=== PATIENT | female | born 1970 | race Caucasian/White ===

== ENCOUNTER → 2018-07-06 10:18 | Outpatient (CLI) | payer BC, SELFPAY ==
[2018-07-06 11:53] LABS: Add Manual Diff / Slide Review NO; Basophils Percent Auto 0.6 % (0-2); Eosinophils Percent Auto 1.7 % (2-4); Hematocrit 39.4 % (36-46); Hemoglobin 14.1 g/dL (12.0-16.0); Lymphocytes Percent Auto 27.2 % (25-40); Mean Corpuscular HGB Conc 35.8 % (30-36); Mean Corpuscular Hemoglobin 32.6 PG (26-34); Neutrophils Absolute Auto 4300 /uL (3000-5900); Neutrophils Percent Auto 63.5 % (50-75); Platelet Count 274 X10^3/uL (150-400); Red Blood Cell Count 4.33 X10^6/uL (4.0-5.2); Red Cell Distribution Width 13.2 % (11.6-14.8); White Blood Cell Count 6.7 X10^3/uL (4.5-11.0)
[2018-07-06 12:13] LABS: Alanine Aminotransferase 35 IU/L (9-52); Albumin 4.8 g/dL (3.5-5.0); Albumin Globulin Ratio 1.4 (1.0-2.8); Alkaline Phosphatase 45 U/L (38-126); Aspartate Aminotransferase 28 IU/L (14-36); BUN Creatinine Ratio 17.1 (6-22); Bilirubin Total 0.9 mg/dL (0.2-1.3); Blood Urea Nitrogen 12 mg/dL (7-17); Calcium 9.6 mg/dL (8.4-10.2); Carbon Dioxide 28 mmol/L (22-32); Chloride 101 mmol/L (98-107); Estimated Glomerular Filt Rate > 60.0 mL/min (>60); Globulin 3.4 g/dL (1.7-4.1); Glucose 107 mg/dL (70-100); HEMOLYSIS 16 (0-50); Potassium 3.9 mmol/L (3.4-5.1); Sodium 141 mmol/L (137-145); Total Protein 8.2 g/dL (6.3-8.2)
[2018-07-06 12:41] LABS: TSH w/ Reflex to FT4 2.07 uIU/mL (0.47-4.68)
== END ==
PROVIDERS: PCP Family Medicine; Visit Provider Registered Nurse
DX: R06.02 Shortness of breath (principal)
CPT/HCPCS: 36415; 80053; 84443; 85025

== ENCOUNTER → 2018-09-21 11:50 | Outpatient (CLI) | payer BC, SELFPAY ==
[2018-09-21 12:03] LABS: Add Manual Diff / Slide Review NO; Basophils Absolute Auto 100 /uL (0-100); Basophils Percent Auto 1.1 % (0-2); Eosinophils Absolute Auto 200 /uL (0-450); Eosinophils Percent Auto 3.5 % (2-4); Hematocrit 37.4 % (36-46); Hemoglobin 13.5 g/dL (12.0-16.0); Lymphocytes Absolute Auto 1600 /uL (1100-4500); Mean Corpuscular Hemoglobin 32.8 PG (26-34); Mean Corpuscular Volume 91.1 fL (80-100); Monocytes Absolute Auto 400 /uL (0-900); Monocytes Percent Auto 5.7 % (3-14); Neutrophils Absolute Auto 4500 /uL (1500-7000); Neutrophils Percent Auto 66.7 % (50-75); Platelet Count 246 X10^3/uL (150-400); Red Blood Cell Count 4.11 X10^6/uL (4.0-5.2); Red Cell Distribution Width 13.6 % (11.6-14.8); White Blood Cell Count 6.8 X10^3/uL (4.5-11.0)
[2018-09-21 12:24] LABS: Cholesterol 156 mg/dL (140-199); HDL Cholesterol 53 mg/dL (40-60); LDL Cholesterol Calculated 85 mg/dL (<100); Triglycerides 89 mg/dL (35-150)
== END ==
PROVIDERS: PCP Family Medicine; Visit Provider Family Medicine
DX: Z13.220 Encounter for screening for lipoid disorders (principal); N92.0 Excessive and frequent menstruation with regular cycle
CPT/HCPCS: 36415; 80061; 85025

== ENCOUNTER 2018-12-23 06:37 | Day surgery (SDC) | payer BC, SELFPAY ==
[2018-11-03 07:45] VITALS: BMI 35.6
[2018-12-12 15:18] VITALS: BMI 35.6
[2018-12-23] VITALS (8 sets, daily range): BP systolic 102–132; BP diastolic 71–93; PULSE 66–92; RESP 13–22; TEMP 36.3–36.8; O2SAT 92–97; BMI 35.6
--- NOTE | 2018-12-23 | PATH_ITS ---
[facility] Accession Number: [id number] . 01 Material submitted: . endometrium - ENDOMETRIAL CURRETINGS . 02 Diagnosis: Endometrial Curettings: Focal benign / non-atypical glandular hyperplasia in a background of disordered proliferative endometrium with regions of breakdown; negative for cytologic atypia and malignancy. V/12/26/2018 . 02 Electronically signed: . Haleigh Marshall MD, Pathologist NPI- [id number] . 01 Gross description: . ENDOMETRIAL CURRETINGS: Received in formalin are minute fragments of mucoid and hemorrhagic material measuring 0.6 x 0.6 x 0.3 cm in aggregate. Submitted in toto in 1 cassette. /DMC /DMC . 02 Pathologist provided ICD-10: N85.00 . 02 CPT . 226503 Performed at: 01 [facility] [address] [id number] MD Jeffy Noyola MD Phone: [phone] Performed at: 02 [facility] [address] [place], [place] [id number] MD Kya Guzmán MD Phone: [phone]
--- NOTE | 2018-12-23 07:26 | SUR.OPER ---
Lithotomy on padded OR bed, head on pillow, arms secured on padded arm boards at <90 degrees abduction. Legs secured in padded yellow fins stirrups.
[2018-12-23] MEDS: LACTATED RINGERS 1,000 ML 42 ML IV (07:46)
--- NOTE | 2018-12-23 07:56 | PM.PREOP ---
Pre-operative Note Interval Note History & Physical reviewed/Exam performed by Physician: Yes Changes to H&P: No
--- NOTE | 2018-12-23 07:57 | PM.HP.1 ---
History of Present Illness Date Patient Seen: 12/23/18 Time Patient Seen: 07:57 Chief complaint: [address] D&C HYSTERECTOMY; NOVASURE ABLATION Narrative: Patient is a 47-year-old 4 para 4 with menorrhagia and severe dysmenorrhea who presents for a D&C hysteroscopy and NovaSure endometrial ablation Patient History Medical History (Updated 11/03/18 @ 07:54 by Kalyn Mathur RN) Dysmenorrhea (Acute) Gestational diabetes (Acute) Hx of migraines (Acute) Hyperglycemia (Acute) Menorrhagia (Acute) Neck pain (Chronic ~2013) Surgical History (Updated 11/03/18 @ 07:54 by Kalyn Mathur RN) History of (Acute) Family History (Updated 07/05/18 @ 23:02 by Beulah Benson) Sister Diabetes mellitus Brother Diabetes mellitus Father Diabetes mellitus Diabetic neuropathy Sister Thyroid disease Social History household members: spouse and children Smoking Status: Never smoker Family & Social History Family History (Updated 07/05/18 @ 23:02 by Beulah Benson) Sister Diabetes mellitus Brother Diabetes mellitus Father Diabetes mellitus Diabetic neuropathy Sister Thyroid disease Social History: household members spouse,children Tobacco & Substance use: Smoking Status Never smoker Substance Use Type does not use Meds Home Medications Medication Instructions Recorded Confirmed Type Vitamin D3 Complete 800 unit PO DAILY #0 04/01/17 12/23/18 History acyclovir 400 mg PO TID PRN 12/23/18 11/03/18 History Allergies Allergy/AdvReac Type Severity Reaction Status Date / Time venom-honey bee Allergy Severe Anaphylaxis Verified 12/23/18 07:48 [BEE VENOM (HONEY BEE)] morphine [MORPHINE] Allergy Intermediate SWELLING, Verified 12/23/18 07:48 ITCHING, HIVES hydrocodone [HYDROCODONE] Allergy Mild ITCH Verified 12/23/18 07:48 codeine [CODEINE] AdvReac Mild NAUSEA Verified 12/23/18 07:48 Exam Vital Signs (past 8 hours): - 12/23/18 07:12 Temperature 98.3 F Pulse Rate 73 Respiratory Rate 16 Blood Pressure 132/93 H Pulse Oximetry 97 Oxygen Delivery Method Room Air Narrative Exam Narrative: HEENT: No thyromegaly, no anterior cervical or supraclavicular lymphadenopathy. Lungs:Clear to auscultation bilaterally, no wheezes. Cardiovascular: Regular rate and rhythm, no murmurs, rubs, or gallops. Abdomen: Well-healed Pfannenstiel scars. No hepatosplenomegaly. No masses palpable. External genitalia: Normal Vagina: Normal Cervix: Normal Bimanual exam: 8 Week size uterus. Mobile. Rectal: No masses. Assessment & Plan Assessment & Plan narrative: Assessment: 47-year-old 4 para 4 with menorrhagia and severe dysmenorrhea Plan: D&C hysteroscopy with NovaSure endometrial ablation The risks, benefits, and alternatives to the procedure were explained to the patient. The risks including bleeding, infection, and uterine perforation. She understands these risks and agrees to proceed. A full PAR-Q was held and consent form was signed. Time Spent With Patient Time with patient: 15-24 minutes
[2018-12-23] MEDS: APREPITANT 40 MG CAPSULE PO (08:07)
[2018-12-23] MEDS: ONDANSETRON 4 MG/2 ML INJ IV (08:59)
--- NOTE | 2018-12-23 09:08 | PM.GYNOP.1 ---
Operative Date/Time/Diagnoses Date of procedure: 12/23/18 Time of procedure: 09:08 Pre-op diagnosis: Menorrhagia Severe dysmenorrhea Post-op diagnosis: same Procedure: Procedures Operation Date: 11/04/18 10:15 <No data on this case meets the specified criteria> Operation Date: 12/23/18 07:45 Actual Procedures Side Surgeon p Hysteroscopy D&C w/Novasure Ablation Gracie Mayers MD Indications: Menorrhagia Severe dysmenorrhea Surgeon: Gracie Mayers Anesthesia Type: General (LMA) Operative Notes Findings: 8 week size anteverted uterus Thickened endometrial lining Both fallopian tube ostia observed No fibroids or polyps Specimen(s): endometrial curettings Estimated blood loss (mL): 10 Blood products transfused: none Procedure in detail: After informed consent was obtained, the patient was taken to the operating room where she was placed in the dorsal supine position. After adequate LMA general anesthesia was achieved, she was placed in the dorsal lithotomy position, and prepped and draped in the usual sterile fashion. A time-out was performed. A bivalve speculum was placed into the vagina and the anterior lip of the cervix grasped with a single-tooth tenaculum. The cervical os was sequentially dilated to the # 8 Hegar dilator. The hysteroscope passed easily into the endometrial cavity. There was a thickened endometrial lining throughout. Both fallopian tube ostia were observed. There were no fibroids or polyps observed. The hysteroscope was removed. sharp curettage was performed yielding a large amount of endometrial curettings. The uterus was measured from the internal os to the fundus and was at 4.5 cm. This was set on the NovaSure catheter and the generator. The NovaSure catheter passed easily into the endometrial cavity and was opened. The width was 3.5 cm. This indicated a power of 87 w. The cervix was capped. The cavity assessment was performed and passed. The cycle was initiated and lasted 120 seconds. The cervix was then capped. The NovaSure catheter was closed in was removed from the uterus. The single-tooth tenaculum was removed from the anterior lip of the cervix. The bivalve speculum was removed from the vagina. Sponge, lap, and instrument counts were correct x2. The patient tolerated the procedure well, and was taken to PACU in stable condition. Complications: none Post-operative Condition: stable Disposition: PACU Plan for aftercare: Home after recovery
== END 2018-12-23 09:45 | disposition home or self-care (01) ==
PROVIDERS: PCP Family Medicine; Visit Provider Obstetrics & Gynecology
PROC: 0U5B8ZZ Destruction of Endometrium, Via Natural or Artificial Opening Endoscopic (ICD-10-PCS; CPT 58563; principal; 2018-12-23 07:45)
DX: N85.00 Endometrial hyperplasia, unspecified (principal); N94.6 Dysmenorrhea, unspecified; N92.0 Excessive and frequent menstruation with regular cycle
CPT/HCPCS: 58563; J1100; J2250; J2405; J2704; J2765; J3010; J8501

== ENCOUNTER 2020-06-10 17:48 | Inpatient (IN) | payer BC, SELFPAY ==
[2020-06-10] VITALS (8 sets, daily range): BP systolic 127–176; BP diastolic 79–91; PULSE 77–103; RESP 15–24; TEMP 36.6–37.1; O2SAT 92–98; BMI 34.3
--- NOTE | 2020-06-10 18:21 | ED.GENADULT ---
HPI - General Adult General Chief complaint: Abdominal Pain Stated complaint: SEVERE ABD CRAMPING FEVER Time Seen by Provider: 06/10/20 18:08 Source: patient Mode of arrival: Ambulatory Limitations: no limitations History of Present Illness HPI narrative: Patient is a 49-year-old female here for evaluation approximately 24 hours of generalized abdominal pain. She initially stated that it was in her upper abdomen but then later on stated that the majority of her symptoms are located on her lower abdomen with left being greater than right. Symptoms were not a sudden-onset did reach their maximum intensity within 30-60 minutes last evening. She stated that she has had some dysuria with the symptoms. Also stated that she felt like she was fairly constipated although she did have 3 bowel movements today although she did not get much relief from the pressure in her lower abdomen. Has had some nausea but no vomiting. No fevers. No prior abdominal surgeries. Has not tried anything for symptoms prior to arrival. She states that she is going through menopause. States that she does have a fairly uncomfortable menses for the last 1 being 1 week ago. Related Data Home Medications Medication Instructions Recorded Confirmed Vitamin D3 Complete 800 unit PO DAILY #0 04/01/17 06/10/20 acyclovir 400 mg PO TID PRN 12/23/18 06/10/20 Allergies Allergy/AdvReac Type Severity Reaction Status Date / Time venom-honey bee Allergy Severe Anaphylaxis Verified 06/10/20 18:02 [BEE VENOM (HONEY BEE)] morphine [MORPHINE] Allergy Intermediate SWELLING, Verified 06/10/20 18:02 ITCHING, HIVES hydrocodone [HYDROCODONE] Allergy Mild ITCH Verified 06/10/20 18:02 codeine [CODEINE] AdvReac Mild NAUSEA Verified 06/10/20 18:02 Review of Systems Constitutional Constitutional: Denies fatigue, Denies fever(s) and Denies headache(s) ENT Ears, Nose, Mouth, and Throat: Denies headache(s) Cardiovascular Cardiovascular: Denies chest pain and Denies dyspnea Respiratory Respiratory: Denies dyspnea Gastrointestinal Gastrointestinal: Reports abdominal pain, Denies melena, Reports bloating, Denies hematochezia, Denies change in bowel habits, Reports tenesmus, Reports cramping, Reports nausea and Denies vomiting Genitourinary Genitourinary: Reports dysuria Genitourinary: Reports dysuria Musculoskeletal Musculoskeletal: Denies arthralgias and Denies myalgias Integumentary/Breasts Skin/Breast: Denies lesions and Denies rash Neurologic Neurologic: Denies behavioral changes and Denies headache(s) Psychiatric Psychiatric: Denies behavioral changes Endocrine Endocrine: Denies fatigue Hematologic/Lymphatic Hematologic/Lymphatic: Denies easy bleeding and Denies easy bruising Allergic/Immunologic Allergic/Immunologic: Denies urticaria Patient History Medical History Dysmenorrhea (Acute) Gestational diabetes (Acute) Hx of migraines (Acute) Hyperglycemia (Acute) Menorrhagia (Acute) Neck pain (Chronic ~2012) Surgical History (Updated 01/24/19 @ 09:30 by Hayley Nunez LPN) History of (Acute) Status post endometrial ablation (Resolved 12/23/18) Family History (Updated 07/05/18 @ 23:02 by Beulah Benson) Sister Diabetes mellitus Brother Diabetes mellitus Father Diabetes mellitus Diabetic neuropathy Sister Thyroid disease Social History household members: spouse Smoking Status: Never smoker alcohol intake: current Smoking Status: Never smoker Substance Use Type: does not use Exam Initial Vital Signs Initial Vital Signs: Vital Signs Temperature 98.8 F 06/10/20 17:54 Pulse Rate 103 H 06/10/20 17:54 Respiratory Rate 18 06/10/20 17:54 Blood Pressure 176/91 H 06/10/20 17:54 Pulse Oximetry 98 06/10/20 17:54 Const General: cooperative, comfortable, well developed and well groomed Limitations: mental status not altered [facility] Head: normal to inspection and normocephalic Resp Effort & Inspection: normal respiratory effort Auscultation: clear to auscultation bilaterally Cardio Rate: tachycardic Rhythm: regular rhythm Pulses: radial pulses present GI Inspection: non-distended Palpation: soft, No firm and tender (Lower abdomen that rebound or guarding) Back/Spine/Pelvis Back: No CVA tenderness Skin Lesions: no lesions Rashes: no rashes Neuro General: patient alert, patient awake and patient oriented x3 Cognition: normal cognition Speech: speech normal Extrem General: normal to inspection and capillary refill normal Psych Appearance: grossly normal and well kempt Scores GCS Richards coma scale eye opening: Spontaneous Maureen coma scale verbal response: Orientated Maureen coma scale motor response: Obey commands Richards coma scale total score: 15 Course Orders Ordered: ED Orders 06/10/20 18:04 EKG-12 Lead Stat 06/10/20 18:10 Chlamydia Gonorrhea PCR -URINE Stat 06/10/20 18:19 Complete Blood Count AUTO DIFF Stat Comprehensive Metabolic Panel Stat Lipase Stat Partial Thromboplastin Time Stat Prothrombin Time INR Stat 06/10/20 18:23 CT abdomen pelvis w con Stat 06/10/20 19:34 US pelvic complete Stat 06/10/20 21:54 Consult to General Surgery Stat Consult to Physician Stat 06/10/20 22:02 Consult to Physician Stat 06/10/20 22:04 Consult to Physician Stat 06/10/20 22:17 COVID19 -ED/INPAT/OR/L&D Stat Sodium Chloride (Normal Saline 0.9%) 1,000 mls @ 125 mls/hr IV CONT [facility] Last Infusion: 06/10/20 22:30 Dose: 125 mls/hr Documented by: Admin: 06/10/20 22:02 Dose: 125 mls/hr Documented by: RALPH Ciprofloxacin (Cipro) 400 mg in 200 mls @ 200 mls/hr IV NOW [facility] Last Admin: 06/10/20 23:40 Dose: 200 mls/hr Documented by: MONICO Ondansetron HCl (Zofran) 4 mg IV Q4HR PRN PRN Reason: Nausea And Vomiting Oxycodone HCl (Percolone) 5 mg PO Q4HR PRN PRN Reason: Pain, Moderate (4-6) Discontinued Medications Sodium Chloride (Normal Saline 0.9%) 1,000 mls @ 1,000 mls/hr IV BOLUS ONE Stop: 06/10/20 19:21 Last Infusion: 06/10/20 20:25 Dose: 0 mls/hr Documented by: Admin: 06/10/20 18:30 Dose: 1,000 mls/hr Documented by: SHAKIR Metronidazole (Flagyl) 500 mg in 100 mls @ 100 mls/hr IV NOW ONE Stop: 06/10/20 23:00 Last Infusion: 06/10/20 22:51 Dose: 100 mls/hr Documented by: Admin: 06/10/20 22:06 Dose: 100 mls/hr Documented by: RALPH Vital Signs Vital signs: Vital Signs - 8 hr 06/10/20 17:54 06/10/20 18:44 06/10/20 19:31 Temperature 98.8 F Pulse Rate 103 H 82 81 Respiratory Rate 18 16 24 Blood Pressure 176/91 H 152/87 H Pulse Oximetry 98 96 98 06/10/20 20:00 06/10/20 21:10 06/10/20 21:12 Temperature Pulse Rate 77 85 84 Respiratory Rate 24 16 Blood Pressure 157/83 H Pulse Oximetry 92 97 97 06/10/20 21:30 Temperature Pulse Rate 83 Respiratory Rate 15 Blood Pressure 127/79 Pulse Oximetry 97 Medical Decision Making Medical Records Medical records reviewed: Yes I reviewed the patient's medical records. Lab Data Lab results reviewed: Yes I reviewed the patient's lab results. Result diagrams: 06/10/20 18:19 06/10/20 18:19 Labs: Lab Results 06/10/20 06/10/20 06/10/20 Range/Units 18:10 18:19 18:19 WBC 11.9 H (4.5-11.0) X10^3/uL RBC 4.35 (4.0-5.2) X10^6/uL Hgb 14.2 (12.0-16.0) g/dL Hct 40.1 (36-46) % MCV 92.1 (80-100) fL MCH 32.5 (26-34) PG MCHC 35.3 (30-36) % RDW 12.8 (11.6-14.8) % Plt Count 260 (150-400) X10^3/uL Neut % (Auto) 77.3 H (50-75) % Lymph % (Auto) 16.4 L (25-40) % Blount % (Auto) 5.1 (3-14) % Eos % (Auto) 0.8 L (2-4) % Baso % (Auto) 0.4 (0-2) % Neut # (Auto) 9200 H (9672-9636) /uL Lymph # (Auto) 2000 (9330-8586) /uL Blount # (Auto) 600 (0-900) /uL Eos # (Auto) 100 (0-450) /uL Baso # (Auto) 0 (0-100) /uL PT 12.0 (10.1-12.7) SECONDS INR 1.0 (0.9-1.3) APTT 31 (26.4-36.2) SECONDS Sodium (137-145) mmol/L Potassium (3.4-5.1) mmol/L Chloride (98-107) mmol/L Carbon Dioxide (22-32) mmol/L BUN (7-17) mg/dL Creatinine (0.52-1.04) mg/dL Estimated GFR (>60) mL/min BUN/Creatinine Ratio (6-22) Glucose (70-100) mg/dL Calcium (8.4-10.2) mg/dL Total Bilirubin (0.2-1.3) mg/dL AST (14-36) IU/L ALT (<35) IU/L Alkaline Phosphatase (38-126) U/L Total Protein (6.3-8.2) g/dL Albumin (3.5-5.0) g/dL Globulin (1.7-4.1) g/dL Albumin/Globulin Ratio (1.0-2.8) Lipase (23-300) U/L Ur Chlamydia DNA (PCR) Not detected N gonorrhoeae DNA (PCR) Not detected 06/10/20 Range/Units 18:19 WBC (4.5-11.0) X10^3/uL RBC (4.0-5.2) X10^6/uL Hgb (12.0-16.0) g/dL Hct (36-46) % MCV (80-100) fL MCH (26-34) PG MCHC (30-36) % RDW (11.6-14.8) % Plt Count (150-400) X10^3/uL Neut % (Auto) (50-75) % Lymph % (Auto) (25-40) % Blount % (Auto) (3-14) % Eos % (Auto) (2-4) % Baso % (Auto) (0-2) % Neut # (Auto) (0295-3935) /uL Lymph # (Auto) (5037-5707) /uL Blount # (Auto) (0-900) /uL Eos # (Auto) (0-450) /uL Baso # (Auto) (0-100) /uL PT (10.1-12.7) SECONDS INR (0.9-1.3) APTT (26.4-36.2) SECONDS Sodium 138 (137-145) mmol/L Potassium 3.6 (3.4-5.1) mmol/L Chloride 101 (98-107) mmol/L Carbon Dioxide 27 (22-32) mmol/L BUN 9 (7-17) mg/dL Creatinine 0.65 (0.52-1.04) mg/dL Estimated GFR > 60.0 (>60) mL/min BUN/Creatinine Ratio 13.8 (6-22) Glucose 102 H (70-100) mg/dL Calcium 9.3 (8.4-10.2) mg/dL Total Bilirubin 1.0 (0.2-1.3) mg/dL AST 27 (14-36) IU/L ALT 27 (<35) IU/L Alkaline Phosphatase 58 (38-126) U/L Total Protein 8.1 (6.3-8.2) g/dL Albumin 4.6 (3.5-5.0) g/dL Globulin 3.5 (1.7-4.1) g/dL Albumin/Globulin Ratio 1.3 (1.0-2.8) Lipase 88 (23-300) U/L Ur Chlamydia DNA (PCR) N gonorrhoeae DNA (PCR) Point of Care Testing Test Results Negative Urine Dip Bedside Urine Glucose Negative Bedside Urine Bilirubin - Negative Bedside Urine Ketone - Negative Urine Specific [place] 1.010 Bedside Urine Occult Blood - Negative Bedside Urine pH 7.5 Bedside Urine Protein - Negative Bedside Urine Urobilinogen - Negative Bedside Urine Nitrite - Negative Bedside Urine Leukocytes - Negative Esterase Point of care testing: Point of Care Testing Test Results Negative Urine Dip Bedside Urine Glucose Negative Bedside Urine Bilirubin - Negative Bedside Urine Ketone - Negative Urine Specific [place] 1.010 Bedside Urine Occult Blood - Negative Bedside Urine pH 7.5 Bedside Urine Protein - Negative Bedside Urine Urobilinogen - Negative Bedside Urine Nitrite - Negative Bedside Urine Leukocytes - Negative Esterase Imaging Data CT scan - abdomen/pelvis: Radiologist's Impression: [address] [address] [address] Scan Report Signed Patient: Collette Gutierres [facility]#: [id number] : 1970Acct:[id number] Age/Sex: 49 / FDate of Service: 06/10/20 Loc: ED Accession Number: [id number] Procedure: CT abdomen pelvis w con Ordering Provider: Jonah Malin D.O. PROCEDURE: CT ABDOMEN PELVIS W CON INDICATIONS: Generalized abdominal pain TECHNIQUE: After the administration of intravenous contrast, 5 mm thick sections acquired from the diaphragm to the symphysis. 5 mm coronal and sagittal reformats were acquired. For radiation dose reduction, the following was used: automated exposure control, adjustment of mA and/or kV according to patient size. COMPARISON: None. FINDINGS: Image quality: Excellent. ABDOMEN: Lung bases: Lung bases are clear. Heart size is normal. Solid organs: Liver is normal in size and enhancement. Gallbladder contains an approximately 2 centimeter calcified gallstone near the fundus. No findings of cholecystitis. Biliary system is non dilated. Pancreas enhances normally. Spleen is normal in size and enhancement. No adrenal nodules. Kidneys demonstrate normal size and enhancement, without hydronephrosis. Peritoneum and bowel: There is a focus of fat stranding and fluid adjacent to the sigmoid colon as it traverses adjacent to the left uterus and adnexa. There is mild colonic wall thickening in this region with a few associated diverticula. Areas of central low attenuation with thick irregular shaggy wilson in the left adnexa. These could represent left adnexal Pepper diverticular abscesses although it would be difficult to exclude an irregular enhancing multi-septated left adnexal mass. Remaining bowel is unremarkable Nodes and vessels: No retroperitoneal or mesenteric adenopathy by size criteria. Aorta and inferior vena cava are normal in size. Miscellaneous: No ventral hernias. PELVIS: Genitourinary: Thickened appearance of the left uterus adjacent to the left adnexa. Remainder of the uterus and the right adnexa are within normal limits. The urinary bladder is unremarkable. No threshold enlarged pelvic or inguinal lymph node. Miscellaneous: No inguinal hernias or adenopathy. Bones: No suspicious bony lesions. No vertebral body compression fractures. IMPRESSION: Nonspecific inflammatory changes centered in the left hemipelvis, involving both the sigmoid colon and adjacent left adnexa. Differential considerations include diverticulitis with an associated abscess and phlegmonous change involving the left adnexa, versus a primary left adnexal/ovarian process such as tubo-ovarian abscess or less likely a neoplasm. Pelvic ultrasound could help differentiate these entities, along with physical exam findings and present/absence of leukocytosis and/or fever. Dictated by: Kehinde Farooq M.D. on 06/10/2020 at 19:20 Approved by: Kehinde Farooq M.D. on 06/10/2020 at 19:2 US - RADIOSONDE SPECIALIST: Radiologist's Impression: [address] [address] Ultrasound Report Signed Patient: Collette Gutierres MMR#: [id number] : 1970Acct:[id number] Age/Sex: 49 / FDate of Service: 06/10/20 Loc: ED Accession Number: [id number] Procedure: US pelvic complete Ordering Provider: Jonah Malin D.O. PROCEDURE: US PELVIC COMPLETE INDICATIONS: L adnexa mass on CT further eval by US TECHNIQUE: Real-time scanning was performed of the pelvic organs, with image documentation. Additional endovaginal scanning was necessary due to incomplete visualization of the adnexal and endometrial structures by transabdominal scanning. COMPARISON: [facility], CT, CT ABDOMEN PELVIS W CON, 06/10/2020, 19:07. FINDINGS: The uterus measures approximately 9.4 x 5.4 x 7.7 centimeters . There is a fundal fibroid in the left uterus measuring 3.1 centimeters which is centrally hypoechoic and peripherally hyperechoic, consistent with the CT appearance of being centrally hypodense and peripherally enhancing. Complex fluid in the endometrium. Ovaries are unremarkable. IMPRESSION: Far left fundal fibroid which is centrally necrotic which may reflect treatment changes or central degeneration. Findings would account for the CT appearance in addition to the differential considerations provided on that report. Dictated by: Kehinde Farooq M.D. on 06/10/2020 at 20:54 Approved by: Kehinde Farooq M.D. on 06/10/2020 at 20:59 ECG Data Attestation: I personally reviewed and interpreted this ECG as follows: Prior ECG tracings: not available for review Interpretation: Sinus rhythm Normal axis Normal QRS Normal QTC Nonspecific ST T wave changes MDM Narrative Medical decision making narrative: Patient does have abdominal pain but has not a acute abdomen. Does have a slight leukocytosis with a slight left shift despite her urinary symptoms her urine does not show any signs of infection. Initial CT scan concerning for potential diverticulitis with phlegmon/abscess verses adnexal cause of the symptoms. Ultrasound was recommended and was subsequently performed which showed the uterine fibroid with necrotic center. I did discuss the case with Dr. arriaga with General surgery who recommended antibiotics to cover for diverticulitis and consultation with exhibition designer and admit to primary provider. I then discussed the case with Dr. schneider with exhibition designer who stated that the uterine fibroid did not need surgical intervention and actually recommended Toradol and no antibiotics for treatment of the fibroid. Given this discussion will place on antibiotics secondary to most likely source being GI and diverticulitis. I discussed the case with Dr. Amado who is the patient's primary provider who will admit for further evaluation treatment. Discussed the findings with the patient. Discussed the need for admission and IV antibiotics. Patient expressed understanding and agreement the plan. Discharge Plan Departure Patient Disposition: Admitted As Inpatient Clinical Impression: Diverticulitis Uterine fibroid Qualifiers: Uterine leiomyoma location: unspecified location Qualified Code(s): D25.9 - Leiomyoma of uterus, unspecified Abdominal pain Qualifiers: Abdominal location: generalized Qualified Code(s): R10.84 - Generalized abdominal pain Discharge Date/Time: 06/10/20 22:30 Admit Date/Time: 06/10/20 22:07 Admit Provider: Meera Amado
[2020-06-10 18:25] LABS: Add Manual Diff / Slide Review NO; Basophils Absolute Auto 0 /uL (0-100); Basophils Percent Auto 0.4 % (0-2); Eosinophils Absolute Auto 100 /uL (0-450); Eosinophils Percent Auto 0.8 % (2-4); Hematocrit 40.1 % (36-46); Hemoglobin 14.2 g/dL (12.0-16.0); Lymphocytes Absolute Auto 2000 /uL (1100-4500); Lymphocytes Percent Auto 16.4 % (25-40); Mean Corpuscular HGB Conc 35.3 % (30-36); Mean Corpuscular Hemoglobin 32.5 PG (26-34); Mean Corpuscular Volume 92.1 fL (80-100); Monocytes Absolute Auto 600 /uL (0-900); Monocytes Percent Auto 5.1 % (3-14); Neutrophils Absolute Auto 9200 /uL (1500-7000); Neutrophils Percent Auto 77.3 % (50-75); Platelet Count 260 X10^3/uL (150-400); Red Blood Cell Count 4.35 X10^6/uL (4.0-5.2); Red Cell Distribution Width 12.8 % (11.6-14.8); White Blood Cell Count 11.9 X10^3/uL (4.5-11.0)
[2020-06-10] MEDS: SODIUM CHLORIDE 0.9% 1,000 ML 1000 ML IV (18:30)
[2020-06-10 18:41] LABS: PTT Partial Thromboplastin Tim 31 SECONDS (26.4-36.2)
[2020-06-10 18:57] LABS: Alanine Aminotransferase 27 IU/L (<35); Albumin 4.6 g/dL (3.5-5.0); Albumin Globulin Ratio 1.3 (1.0-2.8); Alkaline Phosphatase 58 U/L (38-126); Aspartate Aminotransferase 27 IU/L (14-36); BUN Creatinine Ratio 13.8 (6-22); Blood Urea Nitrogen 9 mg/dL (7-17); Calcium 9.3 mg/dL (8.4-10.2); Carbon Dioxide 27 mmol/L (22-32); Chloride 101 mmol/L (98-107); Estimated Glomerular Filt Rate > 60.0 mL/min (>60); Globulin 3.5 g/dL (1.7-4.1); Glucose 102 mg/dL (70-100); HEMOLYSIS < 15 (0-50); Lipase 88 U/L (23-300); Potassium 3.6 mmol/L (3.4-5.1); Sodium 138 mmol/L (137-145); Total Protein 8.1 g/dL (6.3-8.2)
--- NOTE | 2020-06-10 19:34 | DI.US.S_ITS ---
PROCEDURE: US PELVIC COMPLETE INDICATIONS: L adnexa mass on CT further eval by US TECHNIQUE: Real-time scanning was performed of the pelvic organs, with image documentation. Additional endovaginal scanning was necessary due to incomplete visualization of the adnexal and endometrial structures by transabdominal scanning. COMPARISON: [facility], CT, CT ABDOMEN PELVIS W CON, 06/10/2020, 19:07. FINDINGS: The uterus measures approximately 9.4 x 5.4 x 7.7 centimeters . There is a fundal fibroid in the left uterus measuring 3.1 centimeters which is centrally hypoechoic and peripherally hyperechoic, consistent with the CT appearance of being centrally hypodense and peripherally enhancing. Complex fluid in the endometrium. Ovaries are unremarkable. IMPRESSION: Far left fundal fibroid which is centrally necrotic which may reflect treatment changes or central degeneration. Findings would account for the CT appearance in addition to the differential considerations provided on that report. Dictated by: Kehinde Farooq M.D. on 06/10/2020 at 20:54 Approved by: Kehinde Farooq M.D. on 06/10/2020 at 20:59
[2020-06-10] MEDS: SODIUM CHLORIDE 0.9% 1,000 ML 125 ML IV (22:02)
[2020-06-10] MEDS: metroNIDAZOLE 500 MG/100 ML PIGGYBACK 100 MG IV (22:06)
[2020-06-10 22:40] LABS: COVID19 -Nasal RAPID Negative (Negative)
[2020-06-10 23:06] LABS: Urine N gonorrhoeae NOT DETECTED
[2020-06-10 23:15] LABS: Urine Chlamydia NOT DETECTED
[2020-06-10] MEDS: CIPROFLOXACIN 400 MG/200 ML PIGGYBACK 200 MG IV (23:40)
[2020-06-11 00:44] VITALS: TEMP 36.7
--- NOTE | 2020-06-11 01:03 | PC.NURSE ---
Addendum entered by Liya Orozco R.N. 06/11/20 05:18: States pain better but still 6/10 with waves of more intense pain. Denies nausea. Medicated with oxycodone and warm blanket applied for comfort. Educated on diverticulitis and treatment. Discussed plan of care for today. Addendum entered by Liya Orozco R.N. 06/11/20 01:56: Correction: is not wearing SCD's as they are not ordered. Original Note: Patient is alert and oriented. Breath sounds CTA with RA sat of 98%. HRR; telemetry reading was SR. Complains of 7/10 crampy, pressure, spasm like pain in abdomen with most pain being located in left quads. Dr Amado contacted as no pain medications ordered and received order for Oxycodone. BT hypoactive; abdomen is soft and tender. Denies dysuria, frequency or urgency with urination. Able to turn herself in bed. Hurts to move so is assisted when out of bed. Wearing bilateral calf SCD's. Fall risk score is moderate and bed alarm is activated. NPO after 0000 except for sips with meds; patient verbalizes understanding.
[2020-06-11] MEDS: OXYCODONE IR 5 MG TABLET PO ×4 (01:09→23:28)
[2020-06-11 04:00] VITALS: BP 121/83; PULSE 68; RESP 18; TEMP 36.4; O2SAT 98
[2020-06-11] MEDS: SODIUM CHLORIDE 0.9% 1,000 ML 125 ML IV ×2 (07:00→16:21)
[2020-06-11 07:22] VITALS: BP 122/78; PULSE 67; RESP 16; TEMP 36.1; O2SAT 96
--- NOTE | 2020-06-11 08:10 | PM.HP.1 ---
History of Present Illness History of Present Illness Date Patient Seen: 06/11/20 Time Patient Seen: 08:10 Chief complaint: SEVERE ABD CRAMPING FEVER Narrative: Pt is a 49yo woman with a hx of anxiety not on medications who presented with abdominal pain and elevated temperature. The pt reports that around 5pm on 06/09 she developed significant lower abdominal pain. It then radiate up across her entire abdomen. She went to bed, hoping it would resolve by the morning. In the morning when she woke, however, it was worse. The pain waxes and wanes, coming in intense waves. She reports that it feels like someone is punching her repeatedly in the abdomen. When walking, she feels the need to hunch over otherwise it is worse. Laying down it feels better to curl around her abdomen. She denies any nausea, vomiting, diarrhea. At first she thought it was due to constipation, but she had three BMs yesterday that did not cause and improvement in the pain. She denies any melena or hematochezia. Yesterday late afternoon, she developed a fever to 100F at home, and that is when she decided to come to the ED for further evaluation. Of note, the pt has been having very severe cramping with her menses for the last several months (addressed at appt 06/05/20). Her menses have also been much more irregular recently. She had an endometrial ablation completed last year. In the ED, the pt was noted to have a slightly elevated WBC count. She was afebrile. CT scan of her abdomen/pelvis showed possible diverticulitis with phlegmon vs abscess, or adnexal pathology. Pelvic ultrasound then revealed a likely necrotic fibroid. [employer] INSPECTOR and General Surgery were both consulted, and the pt was admitted for monitoring and IV antibiotics. Patient History Medical History Dysmenorrhea (Acute) Gestational diabetes (Acute) Hx of migraines (Acute) Hyperglycemia (Acute) Menorrhagia (Acute) Neck pain (Chronic ~2012) Surgical History (Updated 01/24/19 @ 09:30 by Hayley Nunez LPN) History of (Acute) Status post endometrial ablation (Resolved 12/23/18) Family & Social History Family History (Updated 07/05/18 @ 23:02 by Beulah Benson) Sister Diabetes mellitus Brother Diabetes mellitus Father Diabetes mellitus Diabetic neuropathy Sister Thyroid disease Social History: household members spouse Prior Living Arrangements House Safety & Behavioral: Feels Safe in Current Yes Environment Been Physically Hurt or No Threatened By a Person Suicidal Ideation Description None Tobacco & Substance use: Smoking Status Never smoker alcohol intake current alcohol intake frequency a few times a month Substance Use Type does not use Meds Home Medications and Allergies Home Medications Medication Instructions Recorded Confirmed Type Vitamin D3 Complete 800 unit PO DAILY #0 04/01/17 06/10/20 History acyclovir 400 mg PO TID PRN 12/23/18 06/10/20 History Allergies Allergy/AdvReac Type Severity Reaction Status Date / Time venom-honey bee Allergy Severe Anaphylaxis Verified 06/10/20 18:02 [BEE VENOM (HONEY BEE)] morphine [MORPHINE] Allergy Intermediate SWELLING, Verified 06/10/20 18:02 ITCHING, HIVES hydrocodone [HYDROCODONE] Allergy Mild ITCH Verified 06/10/20 18:02 codeine [CODEINE] AdvReac Mild NAUSEA Verified 06/10/20 18:02 Exam Vital Signs (past 8 hours): - 06/11/20 00:44 06/11/20 04:00 06/11/20 07:22 Temperature 98.0 F 97.6 F 97.0 F L Pulse Rate 68 67 Respiratory Rate 18 16 Blood Pressure 121/83 122/78 Pulse Oximetry 98 96 Oxygen Delivery Method Room Air Oxygen Flow Rate 0 Narrative Exam Narrative: GEN - alert, cooperative and no distress HEENT - normocephalic and atraumatic, moist mucus membranes NECK - FROM, no adenopathy HEART - RRR, S1, S2 normal, no S3 or S4, no murmurs LUNGS - symmetric chest rise, no accessory muscles, clear to auscultation bilaterally ABD - flat, nondistended, normal bowel sounds, soft, tender to palpation in lower quadrants without rebound/guarding/rigidity, no hepatomegaly, splenomegaly or masses EXT - no cyanosis, clubbing or edema SKIN - no rashes or suspicious lesions NEURO - no gross deficits Objective Labs Result Diagrams: 06/11/20 09:15 06/10/20 18:19 Labs: Laboratory Results - last 24 hr 06/10/20 06/10/20 06/10/20 18:10 18:19 18:19 WBC 11.9 H RBC 4.35 Hgb 14.2 Hct 40.1 MCV 92.1 MCH 32.5 MCHC 35.3 RDW 12.8 Plt Count 260 Neut % (Auto) 77.3 H Lymph % (Auto) 16.4 L [place] % (Auto) 5.1 Eos % (Auto) 0.8 L Baso % (Auto) 0.4 Neut # (Auto) 9200 H Lymph # (Auto) 2000 [place] # (Auto) 600 Eos # (Auto) 100 Baso # (Auto) 0 PT 12.0 INR 1.0 APTT 31 Sodium Potassium Chloride Carbon Dioxide BUN Creatinine Estimated GFR BUN/Creatinine Ratio Glucose Calcium Total Bilirubin AST ALT Alkaline Phosphatase Total Protein Albumin Globulin Albumin/Globulin Ratio Lipase Ur Chlamydia DNA (PCR) Not detected COVID-19 PCR N gonorrhoeae DNA (PCR) Not detected 06/10/20 06/10/20 18:19 22:17 WBC RBC Hgb Hct MCV MCH MCHC RDW Plt Count Neut % (Auto) Lymph % (Auto) [place] % (Auto) Eos % (Auto) Baso % (Auto) Neut # (Auto) Lymph # (Auto) [place] # (Auto) Eos # (Auto) Baso # (Auto) PT INR APTT Sodium 138 Potassium 3.6 Chloride 101 Carbon Dioxide 27 BUN 9 Creatinine 0.65 Estimated GFR > 60.0 BUN/Creatinine Ratio 13.8 Glucose 102 H Calcium 9.3 Total Bilirubin 1.0 AST 27 ALT 27 Alkaline Phosphatase 58 Total Protein 8.1 Albumin 4.6 Globulin 3.5 Albumin/Globulin Ratio 1.3 Lipase 88 Ur Chlamydia DNA (PCR) COVID-19 PCR Negative N gonorrhoeae DNA (PCR) Assessment & Plan Assessment & Plan narrative: 49yo woman with hx of anxiety not on medications presenting with abdominal pain and elevated temperature, found in the ED to have possible diverticulitis with abscess/phlegmon and likely necrotic uterine fibroid. Pt currently stable, with pain adequately controlled. 1) Possible diverticulitis with abscess/phlegmon: - General surgery consulted, appreciate care - Continue IV Ciprofloxacin and Metronidazole - Zofran PRN for nausea - NPO status for now 2) Necrotic uterine fibroid: Pt would like to consider hysterectomy due to severe cramping with menses recently, irregular menses, and now this worsening pain. - F[employer]UM[employer] INSPECTOR consulted, appreciate care. - Toradol for pain control - Oxycodone for break-through pain FEN: NPO status pending evaluation by above specialists. DVT ppx: SCDs. Pt does not wish to have Lovenox. Code: Full Dispo: Pending tolerating PO, improvement in abdominal pain. Anticipate 2 midnights.
[2020-06-11] MEDS: metroNIDAZOLE 500 MG/100 ML PIGGYBACK 100 MG IV ×2 (09:03→16:21)
[2020-06-11 09:31] LABS: Add Manual Diff / Slide Review NO; Basophils Absolute Auto 0 /uL (0-100); Basophils Percent Auto 0.6 % (0-2); Eosinophils Absolute Auto 100 /uL (0-450); Eosinophils Percent Auto 1.6 % (2-4); Hematocrit 37.6 % (36-46); Lymphocytes Absolute Auto 1400 /uL (1100-4500); Lymphocytes Percent Auto 23.4 % (25-40); Mean Corpuscular HGB Conc 34.7 % (30-36); Mean Corpuscular Volume 92.4 fL (80-100); Monocytes Absolute Auto 400 /uL (0-900); Monocytes Percent Auto 6.2 % (3-14); Neutrophils Absolute Auto 4100 /uL (1500-7000); Neutrophils Percent Auto 68.2 % (50-75); Platelet Count 221 X10^3/uL (150-400); Red Blood Cell Count 4.06 X10^6/uL (4.0-5.2); Red Cell Distribution Width 12.7 % (11.6-14.8)
--- NOTE | 2020-06-11 09:48 | PC.NURSE ---
Day shift: Pt reports mild nausea after taking the PO oxycodone. Pt did not want any IV Zofran at this time. Friend in room for support. Pt remains in good spirits. Call light in reach. Will continue to monitor.
[2020-06-11] MEDS: CIPROFLOXACIN 400 MG/200 ML PIGGYBACK 200 MG IV ×2 (11:34→23:34)
[2020-06-11] MEDS: KETOROLAC 30 MG/ML VIAL IV ×2 (12:35→20:23)
--- NOTE | 2020-06-11 16:07 | CM.DANOTE ---
Discharge Planning/Care Management DCP: assessment: initiated: case received and discussed in Team Rounds. EMR reviewed. Pt is a 49 year old female who admitted last night to care of PPC: dr. Amado. Consultations planned: gynecological and general surgery. Payer: [employer]. Pt with ? of diverticulitis and likely necrotic uterine fibroid per Dr. Amado's H&P. POC in process but for now pt being monitored and on IV antibiotics. Admission status: INPT. Due to lateness of hour will defer rest of the assessment process to DCP team on for tomorrow. More should be known by then re the POC recommendations by consultants. CM Discharge Assessment Start: 06/11/20 16:06 Freq: Status: Active Protocol: Document 06/11/20 16:06 ITV (Rec: 06/11/20 16:07 IT [id number]) Discharge Planning Assessment Advance Directives? No History Provided By Medical Record Prior Living Arrangements House Household Members spouse Is patient alert and oriented? Yes
[2020-06-11 17:14] VITALS: BP 117/74; PULSE 60; RESP 15; TEMP 36.8; O2SAT 95
--- NOTE | 2020-06-11 17:40 | P.HPOB_ITS ---
History of Present Illness History of Present Illness Reason for admission: pelvic pain Narrative: Collette Gutierres is a 49 year old female 4 para [id number] who was admitted last evening for acute onset of lower abdominal pain Patient reports that on Wednesday evening she felt crampy and constipated. Wednesday morning it was a little worse. She did not eat much but drink some coffee and had 3 bowel movements. There was no relief in the pain after bowel movements. Wednesday early evening she felt chills and had a temperature to 100.2. She went to the emergency department thinking she had an infection of some sort. In the emergency department her temperature was normal. She had a CT scan and an ultrasound. She reports that the pain is worse on the left than the right. She has not had any urinary symptoms. No nausea or vomiting. No diarrhea. Patient reports that she has never gone a year without a menstrual cycle. She is status post an endometrial ablation in August of 2018. There was concerned that she might have diverticulitis. The pelvic ultrasound then revealed maybe a degenerated fibroid that was contributing to the pain on the left side. She did have a slightly elevated white blood count. [facility] Medical History Dysmenorrhea (Acute) Gestational diabetes (Acute) Hx of migraines (Acute) Hyperglycemia (Acute) Menorrhagia (Acute) Neck pain (Chronic ~2012) Surgical History (Updated 01/24/19 @ 09:30 by Hayley Nunez LPN) History of (Acute) Status post endometrial ablation (Resolved 12/23/18) Family History (Updated 07/05/18 @ 23:02 by Beulah Benson) Sister Diabetes mellitus Brother Diabetes mellitus Father Diabetes mellitus Diabetic neuropathy Sister Thyroid disease Social History household members: spouse Smoking Status: Never smoker alcohol intake: current Meds Home Medications and Allergies Home Medications Medication Instructions Recorded Confirmed Type Vitamin D3 Complete 800 unit PO DAILY #0 04/01/17 06/10/20 History acyclovir 400 mg PO TID PRN 12/23/18 06/10/20 History Allergies Allergy/AdvReac Type Severity Reaction Status Date / Time venom-honey bee Allergy Severe Anaphylaxis Verified 06/10/20 18:02 [BEE VENOM (HONEY BEE)] morphine [MORPHINE] Allergy Intermediate SWELLING, Verified 06/10/20 18:02 ITCHING, HIVES hydrocodone [HYDROCODONE] Allergy Mild ITCH Verified 06/10/20 18:02 codeine [CODEINE] AdvReac Mild NAUSEA Verified 06/10/20 18:02 Exam Vital Signs (past 8 hours): - 06/11/20 17:14 Temperature 98.3 F Pulse Rate 60 Respiratory Rate 15 Blood Pressure 117/74 Pulse Oximetry 95 Oxygen Delivery Method Room Air Oxygen Flow Rate 0 Narrative Exam Narrative: Generally: Patient is sitting up in bed, no acute distress Lungs: Clear to auscultation bilaterally Cardiovascular: Regular rate and rhythm Abdomen: Soft, good bowel sounds. No masses palpable. She does have rebound tenderness in the mid to left side of the abdomen. No guarding. Objective Labs Result Diagrams: 06/11/20 09:15 06/10/20 18:19 Labs: Laboratory Results - last 24 hr 06/10/20 06/10/20 06/10/20 18:10 18:19 18:19 WBC 11.9 H RBC 4.35 Hgb 14.2 Hct 40.1 MCV 92.1 MCH 32.5 MCHC 35.3 RDW 12.8 Plt Count 260 Neut % (Auto) 77.3 H Lymph % (Auto) 16.4 L [place] % (Auto) 5.1 Eos % (Auto) 0.8 L Baso % (Auto) 0.4 Neut # (Auto) 9200 H Lymph # (Auto) 2000 [place] # (Auto) 600 Eos # (Auto) 100 Baso # (Auto) 0 PT 12.0 INR 1.0 APTT 31 Sodium Potassium Chloride Carbon Dioxide BUN Creatinine Estimated GFR BUN/Creatinine Ratio Glucose Calcium Total Bilirubin AST ALT Alkaline Phosphatase Total Protein Albumin Globulin Albumin/Globulin Ratio Lipase Ur Chlamydia DNA (PCR) Not detected COVID-19 PCR N gonorrhoeae DNA (PCR) Not detected 06/10/20 06/10/20 06/11/20 18:19 22:17 09:15 WBC 6.0 RBC 4.06 Hgb 13.0 Hct 37.6 MCV 92.4 MCH 32.0 MCHC 34.7 RDW 12.7 Plt Count 221 Neut % (Auto) 68.2 Lymph % (Auto) 23.4 L [place] % (Auto) 6.2 Eos % (Auto) 1.6 L Baso % (Auto) 0.6 Neut # (Auto) 4100 Lymph # (Auto) 1400 [place] # (Auto) 400 Eos # (Auto) 100 Baso # (Auto) 0 PT INR APTT Sodium 138 Potassium 3.6 Chloride 101 Carbon Dioxide 27 BUN 9 Creatinine 0.65 Estimated GFR > 60.0 BUN/Creatinine Ratio 13.8 Glucose 102 H Calcium 9.3 Total Bilirubin 1.0 AST 27 ALT 27 Alkaline Phosphatase 58 Total Protein 8.1 Albumin 4.6 Globulin 3.5 Albumin/Globulin Ratio 1.3 Lipase 88 Ur Chlamydia DNA (PCR) COVID-19 PCR Negative N gonorrhoeae DNA (PCR) Assessment & Plan Assessment & Plan narrative: Assessment: 49-year-old 4 para 4 with left lower quadrant pain Ultrasound with possible degenerated fibroid Reviewed the previous ultrasounds and there was no mention of a fibroid prior to the ablation If this is a degenerating fibroid this could be the source of the pain Patient could also have pain status post the ablation with narrowing of the endometrial canal Plan: Full liquid diet CA-125 ordered Discussed with patient possible laparoscopic removal of the uterus, tubes, and ovaries Once this acute episode has resolved we will schedule that as an outpatient
[2020-06-11 18:23] LABS: Cancer Antigen 125 112 U/mL (0-35)
[2020-06-11] MEDS: diphenhydrAMINE 25 MG TABLET 50 MG PO (19:31)
--- NOTE | 2020-06-11 22:45 | PC.NURSE ---
Evening note: Collette remains Ox3 and situation. Expressed discouragement about having to stay another night in hospital. Dr Amado & Dr Mayers here at different times to see patient. Diet advanced to full liquids. About 45 minutes after having jello & juice, she reported that she did have increased pain. Toradol given at that time. She requested sleeping med as previously discussed with Dr Amado. No sleep med observed on OCT. I notified Dr Casanova, carbonation equipment operator for Dr Amado. He ordered benedryl, and then ambien if benedryl not effective. Pt requests to sleep now as hasn't slept in 72 hours. Sign placed on door. Fall precautions in place, patient calling appropriately when needs to get up to the bathroom.
[2020-06-12 00:24] VITALS: BP 119/52; PULSE 62; RESP 16; TEMP 36.2; O2SAT 96
[2020-06-12] MEDS: metroNIDAZOLE 500 MG/100 ML PIGGYBACK 100 MG IV ×2 (00:52→08:35)
[2020-06-12] MEDS: SODIUM CHLORIDE 0.9% 1,000 ML 125 ML IV (03:17)
[2020-06-12 08:04] VITALS: BP 134/99; PULSE 77; RESP 15; TEMP 36.4; O2SAT 98
--- NOTE | 2020-06-12 10:38 | PM.DS.1 ---
History of Present Illness History of Present Illness Chief complaint: SEVERE ABD CRAMPING FEVER Narrative: Pt is a 49yo woman with a hx of anxiety not on medications who presented with abdominal pain and elevated temperature. The pt reports that around 5pm on 06/09 she developed significant lower abdominal pain. It then radiate up across her entire abdomen. She went to bed, hoping it would resolve by the morning. In the morning when she woke, however, it was worse. The pain waxes and wanes, coming in intense waves. She reports that it feels like someone is punching her repeatedly in the abdomen. When walking, she feels the need to hunch over otherwise it is worse. Laying down it feels better to curl around her abdomen. She denies any nausea, vomiting, diarrhea. At first she thought it was due to constipation, but she had three BMs yesterday that did not cause and improvement in the pain. She denies any melena or hematochezia. Yesterday late afternoon, she developed a fever to 100F at home, and that is when she decided to come to the ED for further evaluation. Of note, the pt has been having very severe cramping with her menses for the last several months (addressed at appt 06/05/20). Her menses have also been much more irregular recently. She had an endometrial ablation completed last year. In the ED, the pt was noted to have a slightly elevated WBC count. She was afebrile. CT scan of her abdomen/pelvis showed possible diverticulitis with phlegmon vs abscess, or adnexal pathology. Pelvic ultrasound then revealed a likely necrotic fibroid. [employer]CRA[employer] STRUCTURE ASSEMBLER and General Surgery were both consulted, and the pt was admitted for monitoring and IV antibiotics. Discharge Providers Provider Date of admission: 06/10/20 22:07 Discharge Date: 06/12/20 Primary care physician: Meera Lin MD Consults: 06/10/20 21:54 Consult to General Surgery Stat Comment: Consulting Provider: Garrison Hernandez Reason for consultation: Diverticulitis Has provider been notified: Yes Consult to Physician Stat Comment: Consulting Provider: Tamra Eckert Reason for consultation: Necrotic uterine fibroid Has provider been notified: Yes 06/10/20 22:02 Consult to Physician Stat Comment: Consulting Provider: Gracie Mayers Reason for consultation: Uterine fibroid Has provider been notified: No 06/10/20 22:04 Consult to Physician Stat Comment: Consulting Provider: Meera Lin Reason for consultation: admission Has provider been notified: Yes Discharge provider: Meera Lin MD Summary Hospital Course Discharge Diagnosis: Elevated CA-125 Necrotic fibroid Diverticulitis Hospital Course: The pt was admitted due to significant abdominal pain and possible diverticulitis with phlegmon seen on CT with necrotic fibroid seen on ultrasound. She was treated with IV Ciprofloxacin and Metronidazole, in addition to pain medication. She was initially placed NPO, and then her diet gradually advanced to full liquids at the time of discharge. The pts pain gradually improved, and at the time of discharge was manageable on PO medications. [employer] STRUCT[employer] ASSEMBLER was consulted due to the necrotic fibroid seen on ultrasound. Due to the pt having no history of fibroids, including on ultrasound completed last year prior to endometrial ablation, a CA-125 was ordered. This was unfortunately elevated to 112. Due to concern for endometrial cancer, referral was placed to Gynecology/Oncology for outpatient evaluation. [employer]UCT[employer] ASSEMBLER was planning on hysterectomy as an outpatient, however with risk of cancer the determination was made this would better be completed after PRECISION [employer]UCTURE ASSEMBLER/ONC eval, and likely with them. At the time of discharge, the pts pain was stable, and she was tolerating PO. She will be discharged home to complete a 7 day course of antibiotics for the presumed diverticulitis also contributing to her pain. Status at Discharge Cognitive/behavioral status at discharge: oriented Functional status at discharge: independent ambulation Overall status at discharge: patient is progressing back to baseline Time Spent with Patient Time spent: Greater than 30 minutes Exam Vital Signs (past 8 hours): - 06/12/20 08:04 Temperature 97.6 F Pulse Rate 77 Respiratory Rate 15 Blood Pressure 134/99 H Pulse Oximetry 98 Oxygen Delivery Method Room Air Oxygen Flow Rate 0 Narrative Exam Narrative: Gen: NAD, sitting comfortably in bed, appears well CV: RRR, no murmurs Resp: clear to auscultation bilaterally Abd: soft, tender to palpation LLQ without rebound/guarding/rigidity, normoactive bowel sounds, nondistended Objective Labs Result Diagrams: 06/11/20 09:15 06/10/20 18:19 Labs: Laboratory Results - last 24 hr 06/11/20 09:10 CA 125 Antigen 112 H Discharge Plan Discharge Plan Patient Disposition: Home Discharge orders & Medications Prescriptions: New oxycodone 5 mg Tablet 5 mg PO Q4HR PRN (Reason: Pain, Moderate (4-6)) Qty: 20 RF: 0 metronidazole 500 mg tablet 500 mg PO Q8H Qty: 15 RF: 0 ciprofloxacin HCl 500 mg tablet 500 mg PO Q12H Qty: 10 RF: 0 Continued Vitamin D3 Complete tablet 800 unit PO DAILY Qty: 0 RF: 0 acyclovir 400 MG tablet 400 mg PO TID PRN (Reason: Cold Sores) RF: 0 Follow up/Referrals: Meera Lin MD [Primary Care Provider] - 1 Month (PLEASE CALL DR. LIN'S OFFICE TO SCHEDULE AN APPOINTMENT TO BE SEEN IN ONE MONTH.) Diet/Activity/Treatments Diet: Diet as Tolerated and Full Liquid Skin/Wound/Dressing Care Report to your healthcare provider any signs of infection, such as:: chills, fever and increased pain Visit Report/Discharge Packet Instructions: DI for Diverticulitis, DI for Prescription Opioid Use Visit Report Forms: Patient Portal/API, Stroke Signs & Symptoms Discharge Data Primary Care Provider: Meera Lin Discharges patient from system. Discharge Date/Time: 06/12/20 12:20
--- NOTE | 2020-06-12 12:29 | PC.NURSE ---
Discharge: Seen by MD. She will be having follow up as an outpt with other providers and Dr. Amado will coordinate this. Minimal pain. Pt feels ready to d/c home. Spouse is at bedside. Given d/c packet and reviewed. Rx was e-sent. Questions answered. Pt d/c home via auto w/spouse.
== END 2020-06-12 12:20 | disposition home or self-care (01) | DRG 760 ==
LOC: ED 21:56 → AC 22:09
PROVIDERS: Admitting Provider Family Medicine; Emergency Provider Emergency Medicine; PCP Family Medicine; Referring Provider Emergency Medicine; Visit Provider Family Medicine
DX: D25.9 Leiomyoma of uterus, unspecified (principal); K57.92 Diverticulitis of intestine, part unspecified, without perforation or abscess without bleeding; R97.0 Elevated carcinoembryonic antigen [CEA]; Z11.59 Encounter for screening for other viral diseases
CPT/HCPCS: 36415; 36592; 74177; 76830; 76856; 80053; 81003; 81025; 83690; 85025; 85610; 85730; 86304; 87491; 87591; 87635; 93005; 96365; 99222; 99233; 99238; 99285; J0744; J1885; Q9967

== ENCOUNTER 2020-07-06 21:01 | Observation (INO) | payer BC, SELFPAY ==
[2020-06-10 22:51] VITALS: BMI 34.3
[2020-07-06] VITALS (10 sets, daily range): BP systolic 123–173; BP diastolic 76–88; PULSE 60–87; RESP 14–17; TEMP 36.5; O2SAT 97–100; BMI 29.7
--- NOTE | 2020-07-06 21:18 | ED_ITS ---
HPI - Abdominal Pain General Chief Complaint: Abdominal Pain Stated Complaint: recent surgery, no BM, elev BP, dont feel right Time Seen by Provider: 07/06/20 21:05 Source: patient and family Mode of arrival: Ambulatory Limitations: no limitations History of Present Illness HPI narrative: 49-year-old female nonsmoker presents with her sister and a chief complaint increasing lower abdominal discomfort, lack of bowel movements and feeling generally the past few days. A few days ago she was at [facility] and a laparoscopic partial hysterectomy. She has had no fever or chills and denies any runny nose, sore throat or cough. She has no chest pain or shortness of breath. She has crampy lower abdominal discomfort that seems to be worse with motion and improves with rest. She has a slightly decreased appetite but still eating and drinking. She denies any vaginal bleeding or discharge. She does have the ability to pass gas. She denies dysuria, frequency or urgency. She has not had a BM since prior to the surgery MD complaint: abdominal pain Onset (ago): day(s) Pain Consistency: constant Location: diffuse Severity: moderate Quality: cramping Radiation: none Relieving factors: rest Exacerbating factors: movement Associated symptoms: nausea and constipation Related Data Home Medications Medication Instructions Recorded Confirmed Vitamin D3 Complete 800 unit PO DAILY #0 04/01/17 06/10/20 acyclovir 400 mg PO TID PRN 12/23/18 06/10/20 Previous Rx's Medication Instructions Recorded ciprofloxacin HCl 500 mg PO Q12H #10 tab 06/12/20 metronidazole 500 mg PO Q8H #15 tab 06/12/20 oxycodone 5 mg PO Q4HR PRN #20 tab 06/12/20 Allergies Allergy/AdvReac Type Severity Reaction Status Date / Time venom-honey bee Allergy Severe Anaphylaxis Verified 06/10/20 18:02 [BEE VENOM (HONEY BEE)] morphine [MORPHINE] Allergy Intermediate SWELLING, Verified 06/10/20 18:02 ITCHING, HIVES hydrocodone [HYDROCODONE] Allergy Mild ITCH Verified 06/10/20 18:02 codeine [CODEINE] AdvReac Mild NAUSEA Verified 06/10/20 18:02 Review of Systems Constitutional Constitutional: Denies chills, Denies fatigue, Denies fever(s), Denies frequent falls, Denies lethargy and Denies weakness Eyes Eyes: Denies change in vision, Denies eye discharge, Denies irritation and Denies loss of vision ENT Ears, Nose, Mouth, and Throat: Denies change in voice, Denies dizziness, Denies neck pain, Denies sore throat and Denies throat swelling Cardiovascular Cardiovascular: Denies chest pain, Denies irregular heart rhythm, Denies lightheadedness, Denies palpitations, Denies dyspnea, Denies dyspnea on exertion and Denies orthopnea Respiratory Respiratory: Denies cough, Denies dyspnea, Denies dyspnea on exertion and Denies wheezing Gastrointestinal Gastrointestinal: Reports abdominal pain, Denies change in bowel habits, Reports constipation, Denies diarrhea, Denies nausea and Denies vomiting Musculoskeletal Musculoskeletal: Denies neck pain and Denies numbness Integumentary/Breasts Skin/Breast: Denies pruritus, Denies erythema, Denies rash and Denies wounds Neurologic Neurologic: Denies behavioral changes, Denies confusion, Denies dizziness, Phil es frequent falls, Denies loss of vision, Denies numbness and Denies weakness Psychiatric Psychiatric: Denies anxiety, Denies behavioral changes, Denies confusion, Denies depression, Denies homicidal ideation and Denies suicidal ideation Endocrine Endocrine: Denies fatigue, Denies flushing and Denies palpitations Hematologic/Lymphatic Hematologic/Lymphatic: Denies easy bruising Allergic/Immunologic Allergic/Immunologic: Denies urticaria, Denies throat swelling and Denies wheezing Patient History Medical History Dysmenorrhea (Acute) Gestational diabetes (Acute) Hx of migraines (Acute) Hyperglycemia (Acute) Menorrhagia (Acute) Neck pain (Chronic ~2012) Surgical History History of (Acute) Status post endometrial ablation (Resolved 12/23/18) Family History Sister Diabetes mellitus Brother Diabetes mellitus Father Diabetes mellitus Diabetic neuropathy Sister Thyroid disease Social History household members: spouse Smoking Status: Never smoker alcohol intake: current Smoking Status: Never smoker alcohol intake frequency: a few times a month Substance Use Type: does not use Exam Narrative Exam Narrative: GENERAL: [49] year old patient appears stated age. Well- nourished, well-developed patient, in mild distress. HEAD: Atraumatic. Normocephalic. EYES: Pupils equal round and reactive. Extraocular motions intact. No scleral icterus. No injection or drainage. ENT: Nose without bleeding, purulent drainage. Throat without erythema, tonsillar hypertrophy or exudate. Airway patent. NECK: Trachea midline. Non tender CARDIOVASCULAR: Regular rate and rhythm without murmurs, gallops, or rubs. RESPIRATORY: Clear to auscultation. Breath sounds equal bilaterally. No wheezes, rales, or rhonchi. GASTROINTESTINAL: Abdomen soft, mild lower abdominal tenderness, nondistended. Incisions are clean, dry and intact, no dehiscence, drainage or surrounding erythema. Positive bowel sounds in all 4 quadrants EXTREMITIES: No edema or joint tenderness. BACK: Nontender without deformity or crepitance. No flank tenderness. NEURO: AOx3. No saddle anesthesia SKIN: No rash or erythema of visible areas Initial Vital Signs Initial Vital Signs: Vital Signs Temperature 97.7 F 07/06/20 21:14 Pulse Rate 87 07/06/20 21:14 Respiratory Rate 17 07/06/20 21:14 Blood Pressure 173/88 H 07/06/20 21:14 Pulse Oximetry 100 07/06/20 21:14 Course Orders Ordered: ED Orders 07/06/20 21:19 XR abdomen min 2V Stat 07/06/20 21:50 Complete Blood Count AUTO DIFF Stat Comprehensive Metabolic Panel Stat Lipase Stat 07/06/20 22:08 CT abdomen pelvis w con Stat 07/06/20 23:03 US abdomen limited Stat 07/07/20 00:29 COVID19 -ED/INPAT/OR/L&D Stat Piperacillin/Tazobactam/Dextrose (Zosyn) 3.375 gm in 50 mls @ 100 mls/hr IV NOW ONE Stop: 07/07/20 00:46 Last Admin: 07/07/20 00:25 Dose: 100 mls/hr Documented by: NATARTIN Discontinued Medications Sodium Chloride (Normal Saline 0.9%) 1,000 mls @ 1,000 mls/hr IV BOLUS ONE Stop: 07/06/20 22:17 Last Infusion: 07/06/20 23:22 Dose: 0 mls/hr Documented by: Admin: 07/06/20 21:55 Dose: 1,000 mls/hr Documented by: CHAR Consultations Consultation #1: discussion with Dr. Romero, happy to accept. NPO, COVID, fluids, pain control, antiemetics, Zosyn. Vital Signs Vital signs: Vital Signs - 8 hr 07/06/20 21:14 07/06/20 21:50 07/06/20 21:51 Temperature 97.7 F Pulse Rate 87 74 75 Respiratory Rate 17 16 Blood Pressure 173/88 H 135/79 Pulse Oximetry 100 98 99 07/06/20 22:00 07/06/20 22:15 07/06/20 22:30 Temperature Pulse Rate 60 78 85 Respiratory Rate 14 Blood Pressure 146/82 H 152/79 H Pulse Oximetry 97 99 99 07/06/20 22:39 07/06/20 22:45 07/06/20 23:00 Temperature Pulse Rate 79 75 62 Respiratory Rate 16 16 Blood Pressure 123/78 130/76 Pulse Oximetry 100 98 97 07/06/20 23:30 Temperature Pulse Rate 69 Respiratory Rate 16 Blood Pressure Pulse Oximetry 98 MDM - Abdominal Pain Lab Data Result diagrams: 07/06/20 21:50 07/06/20 21:50 Labs: Lab Results 07/06/20 07/06/20 Range/Units 21:50 21:50 WBC 7.8 (4.5-11.0) X10^3/uL RBC 3.78 L (4.0-5.2) X10^6/uL Hgb 12.2 (12.0-16.0) g/dL Hct 34.7 L (36-46) % MCV 91.8 (80-100) fL MCH 32.2 (26-34) PG MCHC 35.0 (30-36) % RDW 13.2 (11.6-14.8) % Plt Count 237 (150-400) X10^3/uL Neut % (Auto) 76.1 H (50-75) % Lymph % (Auto) 17.3 L (25-40) % [place] % (Auto) 5.2 (3-14) % Eos % (Auto) 1.0 L (2-4) % Baso % (Auto) 0.4 (0-2) % Neut # (Auto) 6000 (4487-3758) /uL Lymph # (Auto) 1400 (5808-9475) /uL [place] # (Auto) 400 (0-900) /uL Eos # (Auto) 100 (0-450) /uL Baso # (Auto) 0 (0-100) /uL Sodium 139 (137-145) mmol/L Potassium 3.2 L (3.4-5.1) mmol/L Chloride 104 (98-107) mmol/L Carbon Dioxide 32 (22-32) mmol/L BUN 8 (7-17) mg/dL Creatinine 0.58 (0.52-1.04) mg/dL Estimated GFR > 60.0 (>60) mL/min BUN/Creatinine Ratio 13.8 (6-22) Glucose 138 H (70-100) mg/dL Calcium 8.8 (8.4-10.2) mg/dL Total Bilirubin 1.1 (0.2-1.3) mg/dL AST 39 H (14-36) IU/L ALT 46 H (<35) IU/L Alkaline Phosphatase 55 (38-126) U/L Total Protein 7.2 (6.3-8.2) g/dL Albumin 3.9 (3.5-5.0) g/dL Globulin 3.3 (1.7-4.1) g/dL Albumin/Globulin Ratio 1.2 (1.0-2.8) Lipase 50 (23-300) U/L Imaging Data Abdominal x-ray: Radiologist's Impression: Collette Gutierres 49 F 1970 [place] [address] XRay Report Signed Patient: Collette Gutierres [facility]#: [id number] : 1970Acct:[id number] Age/Sex: 49 / FDate of Service: 07/06/20 Loc: ED Accession Number: [id number] Procedure: XR abdomen min 2V Ordering Provider: Eriberto Ness D.O. PROCEDURE: XR ABDOMEN MIN 2V INDICATIONS: pain, decreased BM, recent surgery TECHNIQUE: 2 views of the abdomen were acquired. COMPARISON: None. FINDINGS: Surgical changes and devices: None. Bowel: The small bowel is diffusely gas-filled. A moderate amount of stool is present within the ascending colon and a small amount of stool is present within the descending colon. Trace gas is present within the rectosigmoid. Soft tissues: No masses; visualized solid organ contours appear normal in size. No suspicious abdominal calcifications. Bones: No suspicious bony abnormalities. IMPRESSION: Findings suspicious for early ileus. Dictated by: Danielle Squires M.D. on 07/06/2020 at 21:36 Approved by: Danielle Squires M.D. on 07/06/2020 at 21:37 CT scan - abdomen/pelvis: Radiologist's Impression: No obstruction Acute Choleycystitis changes, mild dilation of CBD US - abdomen: Radiologist's Impression: Positive for acute choleycystitis, dilation of CBD, recommend MRCP Discharge Plan Departure Patient Disposition: Admitted As Inpatient Clinical Impression: Acute cholecystitis, Adynamic ileus Admit Date/Time: 07/07/20 00:26 Admit Provider: Magen Romero
[2020-07-06] MEDS: SODIUM CHLORIDE 0.9% 1,000 ML 1000 ML IV (21:55)
[2020-07-06 22:00] LABS: Add Manual Diff / Slide Review NO; Basophils Absolute Auto 0 /uL (0-100); Basophils Percent Auto 0.4 % (0-2); Eosinophils Absolute Auto 100 /uL (0-450); Hematocrit 34.7 % (36-46); Hemoglobin 12.2 g/dL (12.0-16.0); Lymphocytes Absolute Auto 1400 /uL (1100-4500); Lymphocytes Percent Auto 17.3 % (25-40); Mean Corpuscular Hemoglobin 32.2 PG (26-34); Mean Corpuscular Volume 91.8 fL (80-100); Monocytes Absolute Auto 400 /uL (0-900); Monocytes Percent Auto 5.2 % (3-14); Neutrophils Absolute Auto 6000 /uL (1500-7000); Neutrophils Percent Auto 76.1 % (50-75); Platelet Count 237 X10^3/uL (150-400); Red Blood Cell Count 3.78 X10^6/uL (4.0-5.2); Red Cell Distribution Width 13.2 % (11.6-14.8); White Blood Cell Count 7.8 X10^3/uL (4.5-11.0)
[2020-07-06 22:08] LABS: Alanine Aminotransferase 46 IU/L (<35); Albumin 3.9 g/dL (3.5-5.0); Albumin Globulin Ratio 1.2 (1.0-2.8); Alkaline Phosphatase 55 U/L (38-126); Aspartate Aminotransferase 39 IU/L (14-36); BUN Creatinine Ratio 13.8 (6-22); Bilirubin Total 1.1 mg/dL (0.2-1.3); Blood Urea Nitrogen 8 mg/dL (7-17); Calcium 8.8 mg/dL (8.4-10.2); Carbon Dioxide 32 mmol/L (22-32); Chloride 104 mmol/L (98-107); Estimated Glomerular Filt Rate > 60.0 mL/min (>60); Globulin 3.3 g/dL (1.7-4.1); Glucose 138 mg/dL (70-100); HEMOLYSIS < 15 (0-50); Lipase 50 U/L (23-300); Potassium 3.2 mmol/L (3.4-5.1); Sodium 139 mmol/L (137-145); Total Protein 7.2 g/dL (6.3-8.2)
--- NOTE | 2020-07-06 22:08 | DI.CT.S_ITS ---
PROCEDURE: CT ABDOMEN PELVIS W CON INDICATIONS: severe abdomen pain recent surgery, feels bad TECHNIQUE: After the administration of intravenous contrast, 5 mm thick sections acquired from the diaphragm to the symphysis. 5 mm coronal and sagittal reformats were acquired. For radiation dose reduction, the following was used: automated exposure control, adjustment of mA and/or kV according to patient size. COMPARISON: [facility], CT, CT ABDOMEN PELVIS W CON, 06/10/2020, 19:07. FINDINGS: Image quality: Excellent. ABDOMEN: Lung bases: Lung bases are clear. Heart size is normal. Solid organs: Liver is normal in size and enhancement. Gallbladder contains numerous gallstones with associated gallbladder wall hyperemia and moderate pericholecystic stranding. There is prominence of the common bile duct measuring up to [address] evidence for choledocholithiasis. Intrahepatic biliary system is non dilated. Pancreas enhances normally. Spleen is normal in size and enhancement. No adrenal nodules. Kidneys demonstrate normal size and enhancement, without hydronephrosis. Peritoneum and bowel: Bowel loops demonstrate normal wall thickness and caliber. Nodes and vessels: No retroperitoneal or mesenteric adenopathy by size criteria. Aorta and inferior vena cava are normal in size. Miscellaneous: No ventral hernias. There are postsurgical changes involving the anterior abdominal wall compatible with recent hysterectomy. Minimal amount of pneumoperitoneum secondary to recent procedure. No organized fluid collections identified within the abdominal wall. PELVIS: Genitourinary: Bladder wall thickness is normal. Status post hysterectomy. Minimal amount of hyperdense fluid in the pelvis likely related to recent hysterectomy. No organized fluid collections. Miscellaneous: No inguinal hernias or adenopathy. Bones: No suspicious bony lesions. No acute vertebral body compression fractures. IMPRESSION: 1. Cholelithiasis with findings compatible with acute cholecystitis. There is also mild dilatation of the common bile duct measuring 9 mm in diameter. No CT evidence of choledocholithiasis. Further evaluation with ultrasound can be considered. 2. Expected postsurgical changes from recent hysterectomy. No evidence for abscess formation . No significant discrepancy with the steward/stewardess night radiology preliminary report. Dictated by: Nhan Arboleda M.D. on 07/07/2020 at 8:30 Approved by: Nhan Arboleda M.D. on 07/07/2020 at 8:36
--- NOTE | 2020-07-06 23:03 | DI.US.S_ITS ---
PROCEDURE: US ABDOMEN LIMITED INDICATIONS: PAIN; CHOLECYSTITIS ON CT TECHNIQUE: Real-time scanning was performed of the abdominal and retroperitoneal organs, with image documentation. COMPARISON: None. FINDINGS: Liver: Liver is normal in size and homogeneous in echotexture. Gallbladder: The gallbladder contains multiple nonmobile shadowing gallstones measuring up to 2.7 cm in size. Gallbladder wall thickening measuring up to 10 mm. Negative sonographic Viera sign per grinder and honer operator automatic is report. Biliary ducts: Intrahepatic bile ducts are non-dilated. Extrahepatic bile duct caliber is dilated with the common dial duct measuring up to 12 mm in diameter. Pancreas: Visualized portions of the pancreas are sonographically normal. IMPRESSION: Cholelithiasis with sonographic evidence for acute cholecystitis. Dilated common bile duct measuring up to 12 mm without sonographic evidence for choledocholithiasis. Recommend correlation with laboratory evaluation for possible biliary obstruction as well as consideration for MRCP. No significant discrepancy with the mold shifter radiology preliminary report. Dictated by: Nhan Arboleda M.D. on 07/07/2020 at 8:36 Approved by: Nhan Arboleda M.D. on 07/07/2020 at 8:41
[2020-07-07] VITALS (8 sets, daily range): BP systolic 114–151; BP diastolic 77–95; PULSE 71–78; RESP 16; TEMP 36.1–37.2; O2SAT 95–100; BMI 29.7
[2020-07-07] MEDS: PIPERACILLIN-TAZO 3.375 GM/50 ML FROZ.PIGGY IV ×3 (00:25→12:30)
[2020-07-07 00:48] LABS: COVID19 -Nasal RAPID Negative (Negative)
[2020-07-07] MEDS: SODIUM CHLORIDE 0.9% 1,000 ML 125 ML IV ×2 (02:19→11:08)
--- NOTE | 2020-07-07 03:11 | PC.NURSE ---
0125 Pt. was admitted from ER accompanied by her sister Stephanie Amado. Admitting diagnosed of acute cholecystitis, recent surgery of partial lap. hysterectomy in [facility] in [place] last Wednesday07/03/20. C/O being constipated last BM was 07/02/20, denies any nausea & increasing abdominal pain. Also reported that she have some reaction to Oxycodone IR, severe pruritus noted lots of scratch richardson in her BLE, arms & fingers, Dr. Romero ordered Oxycodone but she said that Dr. Ness will order Dilaudid IV, noted Dilaudid IV ordered after I completed her admission assessment. Oxycodone was not enter as an order. Will continue POC & monitor.
--- NOTE | 2020-07-07 09:10 | CM.DANOTE ---
DCP: Case received, EMR reviewed and met with patient. Family member, possibly mother, at bedside as well. Introduced self and role. Was able to obtain information from patient regarding baseline activity and health information prior to hospitalization. DCP assessment completed with information currently available. Patient is a 49 year old female who admitted early this morning to the care of the hospitalist/surgical team. PCP: Dr. Amado. Payer: confirmed: BS Out of [facility]. Patient came to the hospital secondary to having lower abdominal pain, as well as concerns of not having a bowel movement since her recent surgery at [facility]. Patient holds diagnosis of ileus, as well as acute cholecystitis. Patient did have BM this morning. Patient was recently at [facility] for laparoscopic partial hysterectomy. Patient indicated, she has history of endometriosis. Met with patient in her room. She is alert and oriented, family member was in room. She resides here in [place] with her , Amrit. She is independent at baseline, and is self employed as a massage therapist. P: DCP to continue to follow. It is unclear if patient will have surgery. Home is the plan when she is medically stable. Bella Liriano RN/Fruit Packer
[2020-07-07] MEDS: ONDANSETRON 4 MG/2 ML INJ IV (12:37)
[2020-07-07] MEDS: HYDROMORPHONE 0.5 MG INJ IV (12:37)
--- NOTE | 2020-07-07 17:29 | P.HP_ITS ---
History of Present Illness History of Present Illness Date Patient Seen: 07/07/20 Time Patient Seen: 17:29 Chief complaint: recent surgery, no BM, elev BP, dont feel right Narrative: 49-year-old woman who was admitted for possible acute cholecystitis. She had a hysterectomy at an outside institution 4 days ago. Last night she began feeling some abdominal discomfort and presented to the emergency room. She underwent a CT abdomen was incidentally noted a thickened gallbladder wall and the remainder of the imaging was normal. She had a follow-up right upper q uadrant ultrasound which demonstrated a gallbladder wall of approximately 1 cm with a large 2.7 cm stone within it there was no pericholecystic fluid. Labs admission white blood cell count 8 total bilirubin 1.1 AST 39 ALT 46 alk-phos 55. She was treated with IV Zosyn and admitted for observation. This morning she denies any abdominal pain nausea vomiting fever. Patient History Medical History Dysmenorrhea (Acute) Gestational diabetes (Acute) Hx of migraines (Acute) Hyperglycemia (Acute) Menorrhagia (Acute) Neck pain (Chronic ~2012) Surgical History History of (Acute) History of hysterectomy (Acute) Status post endometrial ablation (Resolved 12/23/18) Family & Social History Family History Sister Diabetes mellitus Brother Diabetes mellitus Father Diabetes mellitus Diabetic neuropathy Sister Thyroid disease Social History: household members spouse Prior Living Arrangements House Safety & Behavioral: Feels Safe in Current Yes Environment Been Physically Hurt or No Threatened By a Person Suicidal Ideation Description None Suicide Plan Description No Plan Tobacco & Substance use: Smoking Status Never smoker alcohol intake current alcohol intake frequency holiday/special occasion Substance Use Type does not use Meds Home Medications and Allergies Home Medications Medication Instructions Recorded Confirmed Type Vitamin D3 Complete 800 unit PO DAILY #0 04/01/17 07/07/20 History amoxicillin-pot clavulanate 1 tab PO BID #14 tab 07/07/20 Rx [Augmentin] oxycodone 5 mg PO Q6HR PRN 07/07/20 07/07/20 History Allergies Allergy/AdvReac Type Severity Reaction Status Date / Time oxycodone Allergy Severe ITCHING Verified 07/07/20 03:50 venom-honey bee Allergy Severe Anaphylaxis Verified 06/10/20 18:02 [BEE VENOM (HONEY BEE)] morphine [MORPHINE] Allergy Intermediate SWELLING, Verified 06/10/20 18:02 ITCHING, HIVES hydrocodone [HYDROCODONE] Allergy Mild ITCH Verified 06/10/20 18:02 codeine [CODEINE] AdvReac Mild NAUSEA Verified 06/10/20 18:02 Review of Systems Review of Systems Narrative: A 10 point review of systems is negative except as noted in the HPI Exam Vital Signs (past 8 hours): - 07/07/20 12:15 Temperature 98.0 F Pulse Rate 72 Respiratory Rate 16 Blood Pressure 114/77 Pulse Oximetry 97 Oxygen Delivery Method Room Air Oxygen Flow Rate 0 Narrative Exam Narrative: General-no acute distress, well nourished HEENT-moist mucous membranes, no scleral icterus Neck-supple, no lymphadenopathy Chest- non labored respirations, clear to auscultation bilaterally Cardiac-regular rate no peripheral edema Abdomen-soft, nontender, non distended Extremities-warm, well perfused Neurological-alert and oriented, no focal deficits Objective Labs Result Diagrams: 07/06/20 21:50 07/06/20 21:50 Labs: Laboratory Results - last 24 hr 07/06/20 07/06/20 07/07/20 21:50 21:50 00:29 WBC 7.8 RBC 3.78 L Hgb 12.2 Hct 34.7 L MCV 91.8 MCH 32.2 MCHC 35.0 RDW 13.2 Plt Count 237 Neut % (Auto) 76.1 H Lymph % (Auto) 17.3 L [place] % (Auto) 5.2 Eos % (Auto) 1.0 L Baso % (Auto) 0.4 Neut # (Auto) 6000 Lymph # (Auto) 1400 [place] # (Auto) 400 Eos # (Auto) 100 Baso # (Auto) 0 Sodium 139 Potassium 3.2 L Chloride 104 Carbon Dioxide 32 BUN 8 Creatinine 0.58 Estimated GFR > 60.0 BUN/Creatinine Ratio 13.8 Glucose 138 H Calcium 8.8 Total Bilirubin 1.1 AST 39 H ALT 46 H Alkaline Phosphatase 55 Total Protein 7.2 Albumin 3.9 Globulin 3.3 Albumin/Globulin Ratio 1.2 Lipase 50 COVID-19 PCR Negative Assessment & Plan Assessment and plan (1) Acute cholecystitis: Status: Acute Assessment & Plan narrative: 49-year-old woman admitted for possible acute cholecystitis. Laboratory studies and imaging reviewed. Imaging remarkable for incidental gallbladder wall thickening approximately 1 cm with some large gallstones. Laboratory studies are unremarkable including no leukocytosis. She is 4 days out from a laparoscopic hysterectomy. I told her that it is possible that she has acute cholecystitis although I suspect that the gallbladder wall thickening is an incidental finding as she has no abdominal pain no fever no leukocytosis. Told her that given her recent laparoscopic surgery this week my preference would be to a perform the cholecystectomy in a delayed fashion if possible. So far she is tolerant of a diet has no abdominal pain and will discharge her on a course of Augmentin for 1 week time. She will follow up in the office and then will plan for elective cholecystectomy in approximately 2 months time. Quality VTE Deep Vein Thrombosis/Pulmonary Embolism Present on Admission: No
--- NOTE | 2020-07-07 19:04 | PC.NURSE ---
Evening Shift/Discharge Note- Patient discharged home. Discharge instructions and educations reviewed with patient and signed. IV line removed and bandaid applied. Patient dressed self and packed up all personal belongings. Rechecked room for personal belongings. Patient left via wheelchair with and all personal belongings at 1815.
--- NOTE | 2020-07-08 08:12 | CM.DPC ---
DCP Discharge Home Per Surgeon last night 07/07/20 after DCP shift, pt was medically stable to d/c home with spouse and no identified barriers to discharge. Per Rn, discharge instructions given and no concerns and spouse was bedside for transport. Plan: Patient discharged home last night via spouse POV and no needs. JOSE Serna
== END 2020-07-07 18:15 | disposition home or self-care (01) ==
LOC: ED 21:07 → AC 07-07 00:50
PROVIDERS: Admitting Provider Surgery; Emergency Provider Emergency Medicine; PCP Family Medicine; Referring Provider Emergency Medicine; Visit Provider Surgery
DX: R93.2 Abnormal findings on diagnostic imaging of liver and biliary tract (principal); R10.9 Unspecified abdominal pain; Z90.710 Acquired absence of both cervix and uterus; Z98.890 Other specified postprocedural states; Z11.59 Encounter for screening for other viral diseases
CPT/HCPCS: 36415; 74019; 74177; 76705; 80053; 83690; 85025; 87635; 96361; 96365; 96366; 96375; 99225; 99284; G0378; J1170; J2405; J2543; Q9967

== ENCOUNTER → 2020-07-30 15:00 | Outpatient (CLI) | payer BC, SELFPAY ==
[2020-07-07 01:23] VITALS: BMI 29.7
[2020-07-30 16:29] LABS: HEMOLYSIS < 15 (0-50); Iron 90 ug/dL (37-170)
[2020-07-30 16:40] LABS: Percent Iron Saturation 33 % (15-50); Total Iron Binding Capacity 275 ug/dL (265-497); Transferrin 200 mg/dL (206-381)
[2020-07-30 17:02] LABS: TSH w/ Reflex to FT4 0.78 uIU/mL (0.47-4.68)
[2020-07-30 17:06] LABS: Ferritin 149 ng/mL (11-264)
[2020-07-30 17:46] LABS: Hemoglobin A1C% w Est Avg Glu 5.6 % (4.0-6.0)
== END ==
PROVIDERS: PCP Family Medicine; Referring Provider Family Medicine; Visit Provider Family Medicine
DX: L65.9 Nonscarring hair loss, unspecified (principal); Z86.32 Personal history of gestational diabetes; R68.89 Other general symptoms and signs
CPT/HCPCS: 36415; 82728; 83036; 83540; 83550; 84443

== ENCOUNTER → 2020-09-23 08:47 | Outpatient (CLI) | payer BC, SELFPAY ==
[2020-07-07 01:23] VITALS: BMI 29.7
--- NOTE | 2020-09-23 08:48 | DI.MG.S_ITS ---
BILATERAL DIGITAL DIAGNOSTIC MAMMOGRAM 3D/2D: 09/23/2020 CLINICAL: Pain of left breast. Comparison is made to exam dated: 10/12/2017 [facility]. The tissue of both breasts is heterogeneously dense. This may lower the sensitivity of mammography. No significant masses, calcifications, or other findings are seen in either breast. IMPRESSION: NEGATIVE There is no abnormality seen in the left breast to correspond with the pain, however, clinical followup is recommended. There is no mammographic evidence of malignancy. A 1 year screening mammogram is recommended. This exam was interpreted at Station ID: [id number]. NOTE: For mammograms, a report in lay terms will be sent to the patient. Approximately 15% of breast malignancies will not be visualized mammographically. In the management of a palpable breast mass, a negative mammogram must not discourage biopsy of a clinically suspicious lesion. Electronically Signed By: Jefyf Douglas M.D. ddshan/:09/23/2020 10:01:48 letter sent: Clinical Evaluation ACR BI-RADS Category 1: Negative [id number]
== END ==
PROVIDERS: PCP Family Medicine; Referring Provider Family Medicine; Visit Provider Family Medicine
DX: N64.4 Mastodynia (principal)
CPT/HCPCS: 77066; G0279

== ENCOUNTER → 2020-09-25 11:14 | Outpatient (CLI) | payer BC, SELFPAY ==
[2020-07-07 01:23] VITALS: BMI 29.7
[2020-09-25 12:39] LABS: COVID19 -Nasal RAPID Negative (Negative)
== END ==
PROVIDERS: PCP Family Medicine; Referring Provider Family Medicine; Visit Provider Internal Medicine
DX: Z20.822 Contact with and (suspected) exposure to COVID-19 (principal)
CPT/HCPCS: 87635; C9803

== ENCOUNTER → 2020-09-26 08:43 | Outpatient (CLI) | payer BC, SELFPAY ==
[2020-07-07 01:23] VITALS: BMI 29.7
--- NOTE | 2020-10-02 10:41 | PM.PFT.1 ---
Pulmonary Function Test Referral & Results Date Patient Seen: 09/26/20 Requesting provider: Meera Amado Results: The spirometry demonstrates an FVC of 3.40 L which is 92% of predicted. The FEV1 was measured at 2.84 L which is 97% of predicted. The FEV1/FVC ratio was 83 which is 104% of predicted. Following the administration of bronchodilator there was no appreciable change to above normal numbers. Lung volumes show an SVC of 3.45 L which is 102% of predicted. The diffusing capacity was measured at 21.28 which is 83% of predicted. The maximum voluntary ventilation was normal Interpretation: This study demonstrates normal pulmonary function
== END ==
PROVIDERS: PCP Family Medicine; Referring Provider Family Medicine; Visit Provider Family Medicine
DX: R06.02 Shortness of breath (principal)
CPT/HCPCS: 94060; 94726; 94729

== ENCOUNTER 2020-09-29 02:58 | Observation (INO) | payer BC, SELFPAY ==
[2020-07-07 01:23] VITALS: BMI 29.7
[2020-09-29] VITALS (36 sets, daily range): BP systolic 114–178; BP diastolic 67–113; PULSE 81–105; RESP 9–23; TEMP 36.3–37.4; O2SAT 95–100; BMI 31.6; BMI 32.3
--- NOTE | 2020-09-29 03:00 | ED_ITS ---
HPI - Chest Pain General Chief Complaint: Chest Pain Stated Complaint: chest pressure, neck pain Time Seen by Provider: 09/29/20 03:00 Source: patient and family Mode of arrival: Ambulatory Limitations: no limitations History of Present Illness HPI narrative: 49-year-old female nonsmoker with history of anxiety dive rticulitis, cholecystitis presents with her and a chief complaint of about 4 hours of retrosternal chest pressure. She states that she was normal state of health, having a relatively normal day when she developed the sensation of just being unwell. She started with some upper abdominal discomfort, which then seemed to go away, and soon therafter she developed the chest pressure which brought her in. She denies any obvious provocation or palliation. She states is is a 5 or 6 out of 10 and has been very steady since it's onset. She denies any radiation of her discomfort. She denies other symptoms such as dizziness, weakness or lightheadedness. She denies any shortness of breath. She has had no nausea vomiting or diarrhea. She denies any diaphoresis. She does admit that she also feels some tightness in the suboccipital region of her neck which is not necessarily something new for her. Of note, she had a cholecystectomy at [facility] on September 10 as an outpatient and things have gone well. Furthermore, she had a COVID test mid week followed by pulmonary function test on . complaint: chest pain Onset (ago): hour(s) Duration: constant Onset: during rest Pain location: substernal Severity: moderate Quality: tightness and aching Pain radiation: none Relieving factors: nothing Exacerbating factors: nothing Context: recent surgery Associated symptoms: nausea Treatments prior to arrival chest pain: none Related Data On Oral Contraceptives: No Home Medications Medication Instructions Recorded Confirmed Vitamin D3 Complete 800 unit PO DAILY #0 04/01/17 07/30/20 omeprazole 40 mg capsule,delayed 40 mg PO DAILY 07/30/20 07/30/20 release Previous Rx's Medication Instructions Recorded amoxicillin-pot clavulanate 1 tab PO BID #14 tab 07/07/20 [Augmentin] Allergies Allergy/AdvReac Type Severity Reaction Status Date / Time oxycodone Allergy Severe ITCHING Verified 07/30/20 14:11 venom-honey bee Allergy Severe Anaphylaxis Verified 07/30/20 14:11 [BEE VENOM (HONEY BEE)] morphine [MORPHINE] Allergy Intermediate SWELLING, Verified 07/30/20 14:11 ITCHING, HIVES hydrocodone [HYDROCODONE] Allergy Mild ITCH Verified 07/30/20 14:11 codeine [CODEINE] AdvReac Mild NAUSEA Verified 07/30/20 14:11 Review of Systems Constitutional Constitutional: Denies chills, Denies fatigue, Denies fever(s), Denies frequent falls, Denies lethargy and Denies weakness Eyes Eyes: Denies change in vision, Denies eye discharge, Denies irritation and Denies loss of vision ENT Ears, Nose, Mouth, and Throat: Denies change in voice, Denies dizziness, Reports neck pain, Denies sore throat and Denies throat swelling Cardiovascular Cardiovascular: Reports chest pain, Denies irregular heart rhythm, Denies lightheadedness, Denies palpitations, Denies dyspnea, Denies dyspnea on exertion and Denies orthopnea Respiratory Respiratory: Denies cough, Denies dyspnea, Denies dyspnea on exertion and Denies wheezing Gastrointestinal Gastrointestinal: Denies abdominal pain, Denies change in bowel habits, Denies diarrhea, Denies nausea and Denies vomiting Musculoskeletal Musculoskeletal: Reports neck pain and Denies numbness Integumentary/Breasts Skin/Breast: Denies pruritus, Denies erythema, Denies rash and Denies wounds Neurologic Neurologic: Denies behavioral changes, Denies confusion, Denies dizziness, Denies frequent falls, Denies loss of vision, Denies numbness and Denies weakness Psychiatric Psychiatric: Denies anxiety, Denies behavioral changes, Denies confusion, Denies depression, Denies homicidal ideation and Denies suicidal ideation Endocrine Endocrine: Denies fatigue, Denies flushing and Denies palpitations Hematologic/Lymphatic Hematologic/Lymphatic: Denies easy bruising Allergic/Immunologic Allergic/Immunologic: Denies urticaria, Denies throat swelling and Denies wheezing Patient History Medical History (Updated 09/29/20 @ 06:31 by Eriberto Ness DO) Dysmenorrhea Gestational diabetes Hx of migraines Hyperglycemia Menorrhagia Neck pain (~2012) Surgical History (Updated 09/29/20 @ 03:19 by Eriberto Ness DO) History of History of cholecystectomy History of hysterectomy Status post endometrial ablation (12/23/18) Family History Sister Diabetes mellitus Brother Diabetes mellitus Father Diabetes mellitus Diabetic neuropathy Sister Thyroid disease Social History household members: spouse Smoking Status: Never smoker alcohol intake: current Smoking Status: Never smoker alcohol intake frequency: holidays/special occasions only Substance Use Type: does not use Exam Narrative Exam Narrative: GENERAL: [49] year old patient appears stated age. Well-nourish ed, well-developed patient, in mild distress. A bit anxious with some pressured speech HEAD: Atraumatic. Normocephalic. EYES: Pupils equal round and reactive. Extraocular motions intact. No scleral icterus. No injection or drainage. ENT: Nose without bleeding, purulent drainage. Throat without erythema, tonsillar hypertrophy or exudate. Airway patent. NECK: Trachea midline. No bony tenderness, there is some soft tissue tenderness to palpation of the paraspinal musculature at this of occipital ridge. No change with axial loading CARDIOVASCULAR: Regular rate and rhythm without murmurs, gallops, or rubs. RESPIRATORY: Clear to auscultation. Breath sounds equal bilaterally. No wheezes, rales, or rhonchi. GASTROINTESTINAL: Abdomen soft, non-tender, nondistended. Appropriately healing laparoscopic incisions with aging ecchymosis, yellowish to brown EXTREMITIES: No edema or joint tenderness. BACK: Nontender without deformity or crepitance. No flank tenderness. NEURO: AOx3. SKIN: No rash or erythema of visible areas Initial Vital Signs Initial Vital Signs: Vital Signs Temperature 97.5 F L 09/29/20 03:07 Pulse Rate 81 09/29/20 03:07 Respiratory Rate 23 09/29/20 03:07 Blood Pressure 170/113 H 09/29/20 03:07 Pulse Oximetry 100 09/29/20 03:07 Scores HEART Score Heart Score history: Slightly Suspicious Heart Score EKG: Normal Heart Score Age: 45-64 years old Heart Score risk factors: No known risk factors Heart Score troponin: < or = to normal limit Heart Score Total: 1 Course Orders Ordered: ED Orders 09/29/20 EKG-12 Lead Stat 09/29/20 03:10 XR chest 1V Stat 09/29/20 03:15 Complete Blood Count AUTO DIFF Stat Comprehensive Metabolic Panel Stat D Dimer Stat Lipase Stat NT-proBNP (BNP-Adult 18+) Stat Procalcitonin Stat Prothrombin Time INR Stat Troponin & CK Cardiac Panel Stat 09/29/20 03:42 CT angio chest PE protocol Stat 09/29/20 03:46 CT abdomen pelvis w con Stat 09/29/20 04:45 EKG-12 Lead Stat 09/29/20 05:15 Troponin I Stat 09/29/20 06:22 COVID19 Stat Sodium Chloride (Normal Saline 0.9%) 1,000 mls @ 150 mls/hr IV CONT JIM Last Admin: 09/29/20 03:18 Dose: 150 mls/hr Documented by: Discontinued Medications Aspirin (Aspirin 81 Mg Chew Tab) 324 mg PO NOW ONE Stop: 09/29/20 03:11 Last Admin: 09/29/20 03:18 Dose: 324 mg Documented by: Al Hydrox/Mg Hydrox/Simethicone 20 ml/ Lidocaine HCl 15 ml 0 ml PO NOW ONE Stop: 09/29/20 03:41 Last Admin: 09/29/20 03:53 Dose: 30 ml Documented by: Hydromorphone HCl (Hydromorphone 1 Mg Inj) 1 mg IV Q4HR PRN PRN Reason: Breakthrough Pain Hydromorphone HCl (Hydromorphone 0.5 Mg Inj) 0.5 mg IV NOW ONE Stop: 09/29/20 06:30 Last Admin: 09/29/20 06:37 Dose: 0.5 mg Documented by: Ketorolac Tromethamine (Ketorolac 60 Mg/2 Ml Vial) 15 mg IV NOW ONE Stop: 09/29/20 04:46 Last Admin: 09/29/20 04:50 Dose: 15 mg Documented by: Nitroglycerin (Nitroglycerin 0.4 Mg Sl Tab) 0.4 mg SL [id number] PRN PRN Reason: Chest Pain Last Admin: 09/29/20 03:37 Dose: 0.4 mg Documented by: Pantoprazole Sodium (Pantoprazole 40 Mg Vial) 40 mg IV NOW ONE Stop: 09/29/20 03:41 Last Admin: 09/29/20 03:53 Dose: 40 mg Documented by: Reevaluation(s) Reevaluation #1: no change after NG and ASA no change after GI cocktail and Protonix no notable change after Toradol. Still 12/07 Consultations Consultation #1: discussed with Hema (cardiology). No need for transfer, but given ongoing pressure, patient should come in, get ongoing EKGs, troponin, echo today and likely stress tomorrow Consultation #2: Paulo happy to accept Vital Signs Vital signs: Vital Signs - 8 hr 09/29/20 03:07 09/29/20 03:09 09/29/20 03:21 Temperature 97.5 F L Pulse Rate 81 87 86 Respiratory Rate 23 20 13 Blood Pressure 170/113 H 145/94 H 145/94 H Pulse Oximetry 100 100 100 09/29/20 03:22 09/29/20 03:25 09/29/20 03:26 Temperature Pulse Rate 90 98 H 100 H Respiratory Rate 12 Blood Pressure 145/94 H 145/89 H 145/89 H Pulse Oximetry 100 09/29/20 03:30 09/29/20 03:35 09/29/20 03:37 Temperature Pulse Rate 98 H 103 H 105 H Respiratory Rate 11 L 14 Blood Pressure 133/78 139/82 139/82 Pulse Oximetry 98 98 09/29/20 03:40 09/29/20 03:45 09/29/20 03:50 Temperature Pulse Rate 100 H 100 H 95 H Respiratory Rate 12 9 L 10 L Blood Pressure 131/77 133/77 133/82 Pulse Oximetry 97 98 98 09/29/20 03:56 09/29/20 04:08 09/29/20 04:10 Temperature Pulse Rate 91 H 94 H 90 Respiratory Rate 11 L 11 L Blood Pressure 149/78 H 178/90 H Pulse Oximetry 100 99 09/29/20 04:15 09/29/20 04:20 09/29/20 04:25 Temperature Pulse Rate 87 88 86 Respiratory Rate 10 L 10 L 15 Blood Pressure 147/85 H 137/83 140/83 Pulse Oximetry 100 98 97 09/29/20 04:30 09/29/20 04:35 09/29/20 04:40 Temperature Pulse Rate 87 91 H 85 Respiratory Rate 14 16 16 Blood Pressure 140/86 138/84 141/84 H Pulse Oximetry 100 97 97 09/29/20 04:45 09/29/20 04:50 09/29/20 04:55 Temperature Pulse Rate 88 89 84 Respiratory Rate 10 L 20 10 L Blood Pressure 146/88 H 139/86 137/85 Pulse Oximetry 100 99 99 09/29/20 05:00 09/29/20 05:05 09/29/20 05:10 Temperature Pulse Rate 89 87 88 Respiratory Rate 14 16 16 Blood Pressure 136/83 136/84 140/86 Pulse Oximetry 96 97 98 09/29/20 05:15 09/29/20 05:20 09/29/20 05:25 Temperature Pulse Rate 89 86 87 Respiratory Rate 11 L 13 18 Blood Pressure 139/85 129/83 130/85 Pulse Oximetry 100 99 95 MDM - Chest Pain Lab Data Result diagrams: 09/29/20 03:15 09/29/20 03:15 Labs: Lab Results 09/29/20 09/29/20 09/29/20 Range/Units 03:15 03:15 03:15 WBC 9.2 (4.5-11.0) X10^3/uL RBC 4.42 (4.0-5.2) X10^6/uL Hgb 13.6 (12.0-16.0) g/dL Hct 40.0 (36-46) % MCV 90.5 (80-100) fL MCH 30.9 (26-34) PG MCHC 34.1 (30-36) % RDW 13.4 (11.6-14.8) % Plt Count 305 (150-400) X10^3/uL Neut % (Auto) 61.8 (50-75) % Lymph % (Auto) 30.0 (25-40) % Stanley % (Auto) 4.2 (3-14) % Eos % (Auto) 1.9 L (2-4) % Baso % (Auto) 2.1 H (0-2) % Neut # (Auto) 5700 (1008-3309) /uL Lymph # (Auto) 2800 (0405-3975) /uL Stanley # (Auto) 400 (0-900) /uL Eos # (Auto) 200 (0-450) /uL Baso # (Auto) 200 H (0-100) /uL PT 10.2 (10.1-12.7) SECONDS INR 0.9 (0.9-1.3) D-Dimer < 200 (<230) ng/mL Sodium 139 (137-145) mmol/L Potassium 3.5 (3.4-5.1) mmol/L Chloride 102 (98-107) mmol/L Carbon Dioxide 32 (22-32) mmol/L BUN 18 H (7-17) mg/dL Creatinine 0.65 (0.52-1.04) mg/dL Estimated GFR > 60.0 (>60) mL/min BUN/Creatinine Ratio 27.7 H (6-22) Glucose 117 H (70-100) mg/dL Calcium 9.4 (8.4-10.2) mg/dL Total Bilirubin 0.4 (0.2-1.3) mg/dL AST 28 (14-36) IU/L ALT 32 (<35) IU/L Alkaline Phosphatase 61 (38-126) U/L Total Creatine Kinase 48 (30-135) U/L CK-MB (CK-2) TNP CK-MB (CK-2) Rel Index TNP Troponin I < 0.012 (0.01-0.034) ng/mL NT-Pro-B Natriuret Pep 35 (<125) pg/mL Total Protein 7.9 (6.3-8.2) g/dL Albumin 4.5 (3.5-5.0) g/dL Globulin 3.4 (1.7-4.1) g/dL Albumin/Globulin Ratio 1.3 (1.0-2.8) Lipase 296 (23-300) U/L Procalcitonin (<0.5) ng/mL 09/29/20 09/29/20 Range/Units 03:15 05:15 WBC (4.5-11.0) X10^3/uL RBC (4.0-5.2) X10^6/uL Hgb (12.0-16.0) g/dL Hct (36-46) % MCV (80-100) fL MCH (26-34) PG MCHC (30-36) % RDW (11.6-14.8) % Plt Count (150-400) X10^3/uL Neut % (Auto) (50-75) % Lymph % (Auto) (25-40) % Stanley % (Auto) (3-14) % Eos % (Auto) (2-4) % Baso % (Auto) (0-2) % Neut # (Auto) (9126-9260) /uL Lymph # (Auto) (2509-8187) /uL Stanley # (Auto) (0-900) /uL Eos # (Auto) (0-450) /uL Baso # (Auto) (0-100) /uL PT (10.1-12.7) SECONDS INR (0.9-1.3) D-Dimer (<230) ng/mL Sodium (137-145) mmol/L Potassium (3.4-5.1) mmol/L Chloride (98-107) mmol/L Carbon Dioxide (22-32) mmol/L BUN (7-17) mg/dL Creatinine (0.52-1.04) mg/dL Estimated GFR (>60) mL/min BUN/Creatinine Ratio (6-22) Glucose (70-100) mg/dL Calcium (8.4-10.2) mg/dL Total Bilirubin (0.2-1.3) mg/dL AST (14-36) IU/L ALT (<35) IU/L Alkaline Phosphatase (38-126) U/L Total Creatine Kinase (30-135) U/L CK-MB (CK-2) CK-MB (CK-2) Rel Index Troponin I < 0.012 (0.01-0.034) ng/mL NT-Pro-B Natriuret Pep (<125) pg/mL Total Protein (6.3-8.2) g/dL Albumin (3.5-5.0) g/dL Globulin (1.7-4.1) g/dL Albumin/Globulin Ratio (1.0-2.8) Lipase (23-300) U/L Procalcitonin < 0.05 (<0.5) ng/mL Imaging Data CT scan - chest: Radiologist's Impression: No PE Small subQ fluid collection upper abdomen CT scan - abdomen/pelvis: Radiologist's Impression: Focal fluid collection in subQ tissues of RUQ ECG Data Attestation: I personally reviewed and interpreted this ECG as follows: Interpretation: EKG is normal sinus rhythm rate [61 ] and free of any signs of ischemia or ectopy. No ST segmental elevation or depression. No T wave inversions MDM Narrative Medical decision making narrative: 49F with retrosternal chest pressure since last night, multiple etiologies considered, but not limited to: 1. Cardiac ischemia - HEART score 1, troponin neg. x2, multiple non-ischemic EKGs. No change with NG. No exertional change or other red flag symptoms such as radiation of pain, vomiting, diaphoresis, dizziness or lightheadedness 2. Post operative complication - labs and exam very reassuring. CT does note a RUQ seroma/abscess, there is reproduceable pain but not in region of chest pressure. No overlying redness or warmth, more likely seroma. 3. PE considered, but thought unlikely given negative CTA 4. Pneumonia considered, but no fever, cough, SOB, sputum, elevated WBC or findings on imaging 5. Musculoskeletal considered, but pain is constant and pressure like. Not worsening with motion, palpation, deep breaths. No change with toradol Critical Care Time Critical Care Time Critical Care Time: Yes Total Critical Care Time: 30 Attestation: The high probability of a clinically significant, sudden or life threatening deterioration of the [CV] system(s) required my full and direct attention, intervention and personal management. The aggregate critical care time was [30] minutes. This time is in addition to time spent performing reported procedures but includes the following: [x] Data Review and interpretation [x] Patient assessment and monitoring of vital signs [x] Documentation [x] Medication orders and management Discharge Plan Departure Patient Disposition: Admitted as Observation Clinical Impression: Chest pain Qualifiers: Chest pain type: unspecified Qualified Code(s): R07.9 - Chest pain, unspecified Admit Date/Time: 09/29/20 06:29 Admit Provider: Nichole Bates
--- NOTE | 2020-09-29 03:10 | DI.RAD.S_ITS ---
PROCEDURE: XR CHEST 1V INDICATIONS: chest pain TECHNIQUE: One view of the chest was acquired. COMPARISON: None. FINDINGS: Surgical changes and devices: None. Lungs and pleura: No focal infiltrates are seen. Minimal interstitial prominence is seen within the right perihilar region. No pleural effusions or pneumothorax. Mediastinum: Mediastinal contours appear normal. Heart size is normal. Bones and chest wall: No suspicious bony lesions. Overlying soft tissues appear unremarkable. IMPRESSION: Minimal interstitial prominence is seen within the right perihilar region. Please consider atelectasis, artifact, and mild bronchiolitis. Note: No significant discrepancy from the preliminary report. Dictated by: Aleksander Fuentes M.D. on 09/29/2020 at 7:47 Approved by: Aleksander Fuentes M.D. on 09/29/2020 at 7:49
[2020-09-29] MEDS: ASPIRIN 81 MG CHEW TAB 324 MG PO (03:18)
[2020-09-29] MEDS: SODIUM CHLORIDE 0.9% 1,000 ML 150 ML IV (03:18)
--- NOTE | 2020-09-29 03:20 | PC.NURSE ---
Patient had lap esa on 09/10 at [facility]. Reports overall not feeling well this evening after dinner, pain at incision sites and along epigastric region. Patient states pain is throughout chest and radiates into upper thoracic region and neck reports tightness Denies nausea, sweating or SOB. Patient has bruising noted to abd at and around lap esa sites.
[2020-09-29] MEDS: NITROGLYCERIN 0.4 MG SL TAB SL ×3 (03:22→03:37)
[2020-09-29 03:26] LABS: Add Manual Diff / Slide Review NO; Basophils Absolute Auto 200 /uL (0-100); Basophils Percent Auto 2.1 % (0-2); Eosinophils Absolute Auto 200 /uL (0-450); Eosinophils Percent Auto 1.9 % (2-4); Hemoglobin 13.6 g/dL (12.0-16.0); Lymphocytes Absolute Auto 2800 /uL (1100-4500); Mean Corpuscular HGB Conc 34.1 % (30-36); Mean Corpuscular Hemoglobin 30.9 PG (26-34); Mean Corpuscular Volume 90.5 fL (80-100); Monocytes Absolute Auto 400 /uL (0-900); Monocytes Percent Auto 4.2 % (3-14); Neutrophils Absolute Auto 5700 /uL (1500-7000); Neutrophils Percent Auto 61.8 % (50-75); Platelet Count 305 X10^3/uL (150-400); Red Blood Cell Count 4.42 X10^6/uL (4.0-5.2); Red Cell Distribution Width 13.4 % (11.6-14.8); White Blood Cell Count 9.2 X10^3/uL (4.5-11.0)
[2020-09-29 03:37] LABS: INR 0.9 (0.9-1.3); Prothrombin Time 10.2 SECONDS (10.1-12.7)
[2020-09-29 03:40] LABS: Alanine Aminotransferase 32 IU/L (<35); Albumin 4.5 g/dL (3.5-5.0); Albumin Globulin Ratio 1.3 (1.0-2.8); Alkaline Phosphatase 61 U/L (38-126); Aspartate Aminotransferase 28 IU/L (14-36); BUN Creatinine Ratio 27.7 (6-22); Bilirubin Total 0.4 mg/dL (0.2-1.3); Blood Urea Nitrogen 18 mg/dL (7-17); Calcium 9.4 mg/dL (8.4-10.2); Carbon Dioxide 32 mmol/L (22-32); Chloride 102 mmol/L (98-107); Creatine Kinase 48 U/L (30-135); D Dimer < 200 ng/mL (<230); Estimated Glomerular Filt Rate > 60.0 mL/min (>60); Globulin 3.4 g/dL (1.7-4.1); Glucose 117 mg/dL (70-100); HEMOLYSIS < 15 (0-50); Lipase 296 U/L (23-300); Potassium 3.5 mmol/L (3.4-5.1); Sodium 139 mmol/L (137-145); Total Protein 7.9 g/dL (6.3-8.2)
--- NOTE | 2020-09-29 03:42 | DI.CT.S_ITS ---
PROCEDURE: CT ANGIO CHEST PE PROTOCOL INDICATIONS: cetnral chest pain, pressure, recent surgery TECHNIQUE: After the administration of intravenous contrast, 2 mm thick sections acquired from the pulmonary apices to the posterior costophrenic angles. 3-dimensional maximum intensity projection (MIP) coronal and sagittal reformats were then acquired through the thorax. For radiation dose reduction, the following was used: automated exposure control, adjustment of mA and/or kV according to patient size. COMPARISON: None. FINDINGS: Image quality: Excellent. Pulmonary arteries: Pulmonary arteries are normal in size, and demonstrate no intraluminal filling defects to suggest central pulmonary embolism. Lungs and pleura: Minimal streaky opacities can be seen at the lung bases dependently. No pleural effusions or pneumothorax. Central and peripheral airways are patent. Mediastinum: Heart size is normal, without pericardial effusion. No mediastinal or hilar adenopathy. Thoracic aorta is normal in caliber and enhancement. Esophagus is normal in caliber, without hiatal hernia. Bones and chest wall: No suspicious bony lesions. Ribs and thoracic spine appear intact throughout. Thyroid gland demonstrates no significant abnormality. No axillary or supraclavicular adenopathy. Abdomen: There is an enlarged, fatty liver. There is a subcutaneous nodule seen involving the right upper quadrant anteriorly, as on series 7 image 121 measuring 2 cm. The visualized portions of the upper abdominal structures are otherwise unremarkable for imaging technique. IMPRESSION: Negative for pulmonary embolism. 2 cm nodule involving the subcutaneous fat of the right upper abdomen anteriorly. This is better seen on the accompanying CT of the abdomen and pelvis and is attributed to a prior laparoscopy port. Please correlate with known patient history. Mild apparent atelectasis seen dependently at the lung bases. Differential diagnosis includes pulmonary edema and atypical infection, however. Incidental note is made of: Enlarged, fatty liver Note: No significant discrepancy from the preliminary report. Dictated by: Aleksander Fuentes M.D. on 09/29/2020 at 7:49 Approved by: Aleksander Fuentes M.D. on 09/29/2020 at 7:54
--- NOTE | 2020-09-29 03:46 | DI.CT.S_ITS ---
PROCEDURE: CT ABDOMEN PELVIS W CON INDICATIONS: severe abdomen and chest pain, recent surgery TECHNIQUE: After the administration of intravenous contrast, 5 mm thick sections acquired from the diaphragm to the symphysis. 5 mm coronal and sagittal reformats were acquired. For radiation dose reduction, the following was used: automated exposure control, adjustment of mA and/or kV according to patient size. COMPARISON: [facility], CT, CT ANGIO CHEST PE PROTOCOL, 09/29/2020, 3:56. [facility], CR, XR CHEST 1V, 09/29/2020, 3:17. [facility], CT, CT ABDOMEN PELVIS W CON, 07/06/2020, 22:10. FINDINGS: Image quality: Excellent. ABDOMEN: Lung bases: Mild likely atelectasis can be seen at the lung bases. Heart size is normal. Solid organs: The liver is enlarged and demonstrates diffuse fatty liver infiltration Gallbladder has been removed. Biliary system is non dilated. Pancreas enhances normally. Spleen is normal in size and enhancement. No adrenal nodules. Kidneys demonstrate normal size and enhancement, without hydronephrosis. Peritoneum and bowel: Bowel loops demonstrate normal wall thickness and caliber. No free fluid or air. Nodes and vessels: No retroperitoneal or mesenteric adenopathy by size criteria. Aorta and inferior vena cava are normal in size. Miscellaneous: No ventral hernias. There is apparent fluid seen along a right upper quadrant laparoscopy port tract. Mild rim enhancement can be seen in this measures up to 2.6 cm. PELVIS: Genitourinary: Bladder wall thickness is normal. This patient is status post hysterectomy. No adnexal masses are seen. Miscellaneous: No inguinal hernias or adenopathy. Bones: No suspicious bony lesions. No vertebral body compression fractures. Focal L5-S1 degenerative change is seen. Milder degenerative changes are seen elsewhere. IMPRESSION: Recent cholecystectomy, with fluid seen along a right upper quadrant subcutaneous laparoscopy port tract. Please correlate with history and physical examination findings for seroma versus early abscess. Incidental note is made of: Enlarged, fatty liver Hysterectomy Focal L5-S1 degenerative change Note: No significant discrepancy from the preliminary report. Dictated by: Aleksander Fuentes M.D. on 09/29/2020 at 7:55 Approved by: Aleksander Fuentes M.D. on 09/29/2020 at 7:58
[2020-09-29 03:52] LABS: NT-proBNP (BNP-Adult 18+) 35 pg/mL (<125); Troponin I < 0.012 ng/mL (0.01-0.034)
[2020-09-29] MEDS: MAG HYDROX/ALUMINUM/SIMETH SUS 20 ML, LIDOCAINE VISCOUS 2% 15 ML PO (03:53)
[2020-09-29] MEDS: PANTOPRAZOLE 40 MG VIAL IV ×2 (03:53→08:53)
[2020-09-29 03:55] LABS: Procalcitonin < 0.05 ng/mL (<0.5)
--- NOTE | 2020-09-29 04:10 | PC.NURSE ---
Patient reports pain seems to be getting worse when she takes a deep breath. IV Protonix infusing. Delayed on administration so patient could go to CT
[2020-09-29] MEDS: KETOROLAC 60 MG/2 ML VIAL 15 MG IV (04:50)
[2020-09-29 05:52] LABS: Troponin I < 0.012 ng/mL (0.01-0.034)
[2020-09-29] MEDS: HYDROMORPHONE 0.5 MG INJ IV ×3 (06:37→22:17)
[2020-09-29 06:44] LABS: COVID19 -Nasal RAPID Negative (Negative)
--- NOTE | 2020-09-29 07:29 | DI.ECHO.S_ITS ---
[facility]---------+ [facility] +---------+ : : [address] : [address] [place] : : : : [id number] : : : : Phone: [phone]+ Echocardiogram Report + + :Name: CODEY HILL Study Date: 09/29/2020 Height: 65 in : :[facility] ReadingLocation: Weight: 190 lb : : Gender: Female BSA: 1.9 m2 : :: 1970 Age: 49 yrs BP: 127/89 mmHg: :Reason For Study: Chest pain : :Ordering Physician: Stefan : :Hospitalist Performed By: [place] Page : :Referring: RAMÍREZ LEE : + + Interpretation Summary The left ventricle appears normal in size, wall thickness, and systolic function without any focal wall motion abnormalities. The ejection fraction is estimated to be 60-65%. Diastolic parameters suggest a relaxation abnormality of the left ventricle, consistent with probable normal filling pressures. The right ventricle is normal in size and function. The left atrium is mildly dilated. Right atrial size is normal. There is no significant valvular heart disease. The aortic root is normal size. Procedure: A two-dimensional transthoracic echocardiogram with color flow and Doppler was performed. The study quality was technically adequate. There is no prior echocardiogram noted for this patient. The patient was in normal sinus rhythm during the exam. Left Ventricle: The left ventricle appears normal in size, wall thickness, and systolic function without any focal wall motion abnormalities. The ejection fraction is estimated to be 60-65%. Diastolic parameters suggest a relaxation abnormality of the left ventricle, consistent with probable normal filling pressures. Right Ventricle: The right ventricle is normal in size and function. Atria: The left atrium is mildly dilated. Right atrial size is normal. There is no Doppler evidence for an interatrial shunt. Mitral Valve: The mitral valve leaflets are mildly calcified. There is mild mitral annular calcification. The mitral valve chordae are thickened and/or calcified. There is no mitral regurgitation. Aortic Valve: The aortic valve is trileaflet. The aortic valve opens well. No aortic regurgitation is present. Tricuspid Valve: The tricuspid valve is normal in structure and function. There is trace tricuspid regurgitation. Pulmonic Valve: The pulmonic valve is not well visualized. There is no significant valvular heart disease. Great Vessels: The aortic root is normal size. The ascending aorta is at the upper limits of normal in size. The pulmonary artery is not well visualized, but is probably normal size. IVC not visualized do to recent gallbladder surgery. Pericardium/ Pleura There is no pericardial effusion. There is no pleural effusion. MMode/2D Measurements & Calculations LVIDd: 4.4 cm LVOT diam: 2.0 cm LVIDs: 3.2 cm Ao root diam: 3.1 cm FS: 26.8 % asc Aorta Diam: 3.4 cm IVSd: 0.72 cm LVPWd: 0.66 cm LV mann. diameter/BSA (cm/m^2): 2.3 LV sys. diameter/BSA (cm/m^2): 1.7 LA A2 area: 19.8 cm2 RA long axis: 4.7 cm LA A4 area: 22.5 cm2 RA area: 15.7 cm2 LA length (vol): 5.6 cm RA vol: 43.9 ml LA vol: 67.9 ml RA : 22.7 ml/m2 LA vol index: 35.1 ml/m2 RVD1 (basal): 3.9 cm TAPSE: 1.7 cm Doppler Measurements & Calculations Ao V2 max: 161.0 cm/sec LVOT Max Farhan: 89.5 cm/sec Ao V2 mean: 108.0 cm/sec LV V1 max P.2 mmHg Ao max P.4 mmHg LV V1 VTI: 13.9 cm Ao mean P.3 mmHg MYNOR(I,D): 1.8 cm2 Ao V2 VTI: 24.8 cm MYNOR(V,D): 1.8 cm2 sev ratio: 0.56 MYNOR indexed to BSA (cm^2/m^2): 0.94 MV E max farhan: 64.3 cm/sec TR max farhan: 211.7 cm/sec MV A max farhan: 79.8 cm/sec TR max P.9 mmHg MV E/A: 0.81 PA V2 max: 88.0 cm/sec Med Peak E' Farhan: 7.1 cm/sec PA V2 mean: 63.7 cm/sec E/E' med: 9.1 PA mean P.7 mmHg Lat Peak E' Farhan: 14.4 cm/sec PA Accel Time: 0.10 sec E/E' lat: 4.5 E/e' average: 6.8 MV P1/2t: 35.5 msec MV P1/2t max farhan: 64.3 cm/sec SV(LVOT): 44.8 ml MVA(P12t): 6.2 cm2 Reading Physician:04:18 PM
[2020-09-29] MEDS: SODIUM CHLORIDE 0.9% FLUSH 10 ML IV ×2 (09:00→18:07)
--- NOTE | 2020-09-29 10:07 | CM.DANOTE ---
DCP: Case received, EMR reviewed and met with patient. Introduced self and role. Was able to obtain information from patient regarding her baseline activity status prior to hospitalization. DCP assessment completed with information currently available. Patient is a 49 year old female who admitted early this morning to the care of the hospitalist team. PCP: Dr. Amado. Payer: confirmed: [employer] [facility] of [facility]. Patient came to the hospital via private vehicle secondary to having chest pressure, as well as neck discomfort. Patient is here today for a cardiac work up. She is supposed to get an echo today. Patient also has history of anxiety, diverticulitis, as well as cholecystitis. Met with patient in her room. She was sitting up in bed, alert and oriented, pleasant. Patient resides here in [place] with her spouse, Amrit. She is independent at baseline, and is self employed as a massage therapist. P: DCP to continue to follow. Patient should be able to go home after her testing, once she is deemed medically stable. Bella Liriano RN/Galley Worker
[2020-09-29 14:09] LABS: Troponin I < 0.012 ng/mL (0.01-0.034)
--- NOTE | 2020-09-29 14:44 | PM.HP.1 ---
History of Present Illness History of Present Illness Date Patient Seen: 09/29/20 Time Patient Seen: 14:45 Date of Onset of Symptoms: 09/28/20 Chief complaint: chest pressure, neck pain Narrative: This is a very pleasant fairly healthy 49-year-old female who is under the primary care of Dr. Marian Amado. She presented to emergency department via private vehicle with the complaint of pleuritic chest pain neck and shoulder pain. She had extensive workup in the emergency room which included a chest x-ray that showed right perihilar inflammation and possible atelectasis in the bases of the lung. She had a CT angiogram which did not show evidence of pulmonary embolus or aortic dissection and showed possible atelectasis versus atypical pneumonia in the bilateral lower lung field. She had a CT of the abdomen and pelvis which did not show any evidence of free air or abnormality other than a 2 cm suspected seroma in the port from the laparoscopic-assisted cholecystectomy which she underwent on 09/10/[address] Burnham at [facility]. She was treated with sublingual nitroglycerin x2 without change in her pain. Her EKGs were negative. She was given a GI cocktail without improvement of her pain. She was given 15 mg of IV Toradol without improvement of her pain. She was given 0.5 mg of IV Dilaudid without improvement in her pain. She had a CK and troponin x2 that were negative. Her remaining labs were normal and her vital signs were stable. At the time of my evaluation she states that the pain is really pleuritic in nature sub sternal chest and she does have pain radiating to the back of her head and her musculature of her cervical and thoracic spine as well as lateral trapezius. This is not changed since her presentation. Patient states that she underwent laparoscopic-assisted cholecystectomy by Dr. Wooten on day 8 at [facility] on September 10. There were no complications and she was home within 3 hours of the start time of the surgery. She had a postop follow-up via telehealth and was having no problems. She did have a episode where she drink water and aspirated a little and coughed very hard and she felt a tearing in her upper incision. But never had any further problems. She then was eating dinner at her son's last night and she had turkey tacos and the Wednesday and then shortly thereafter developed pain in her right upper quadrant and mid epigastrium. That went away and did not recur her and then she started having pain in her posterior neck upper back her scalene muscles and SCM muscles of the neck. She attempted to go to sleep but was having difficulty because of this pain and then she started having pain taking a deep breath and so she went to the emergency department for evaluation. Patient has had a fairly complicated recent medical history. Apparently in May she developed abdominal pain and initially CT scan showed inflammation and they treated her in the hospital for diverticulitis. They then did 8 ultrasound of her uterus and noted a fibroid that was necrotic. They did a CA 125 which was elevated and she was referred to Dr. Cade on. Dr. Brink did not think this was cancerous. The patient then went to see Dr. Weller at [facility] and on July 03 she underwent a hysterectomy with a left salpingo-oophorectomy and right salpingectomy but her right ovary was left. Apparently she had extensive endometriosis and had ablation of these lesions. She recovered from the surgery well and and quickly went off her pain medications could she does not like to be on pain medications because they make her itch and then she had abdominal pain and a cholecystitis and gallstones were found. She met with Dr. Romero and they decided to put off doing the cholecystectomy until she has fully recovered from her hysterectomy. She never had this abdominal pain again. She underwent an EGD and a colonoscopy through [facility] on August 19 and they found 5 polyps that were benign and 1 adenomatous polyp so they are repeating in 5 years she also had a benign polyp in her esophagus but no other abnormalities. Past medical history: Walking pneumonia times 10 times 2. Bronchitis 3. Endometriosis 4. Gestational diabetes Outpatient medications omeprazole 40 mg daily and oxybutynin 10 mg daily Past surgical history: x2 September of 2017 uterine ablation July 03, 2020 hysterectomy with LSO and right salpingectomy 09/10/2020 lap persisted cholecystectomy 08/19/2020 EGD and colonoscopy HRB: Patient occasionally uses alcohol. Keep patient does not smoke and never has. Family history: Dad had acute MD at age 40 then had a pig valve placed. He then had a pacemaker. He at age 63 secondary to cardiomyopathy. He also had severe type 2 diabetes Mom is 83 and healthy with no medical problems Patient has a sister with type 2 diabetes and thyroid problems, a brother with type 2 diabetes and another brother with type 2 diabetes and neurofibromatosis, a sister who is healthy Social history patient is her Bob is present today. She lives in [facility]. She works as a massage therapist. She is originally from [place]. She has 4 children Review of systems: Patient has had breathing difficulties but she feels since she had her hysterectomy that she has not had the same shortness of breath. Previously she felt that she could not expand her diaphragm. She did have pulmonary function tests on and does not have the results. She denies any bright red blood per rectum. She denies any black tarry stools. She denies any nausea vomiting or diarrhea . She has had a Normal appetite. She has not had fevers or chills. She has not had a cough. She has had intermittent nasal congestion She has not had exertional dyspnea or chest pain She is just having pleuritic chest pain No headaches Patient History Medical History (Updated 09/29/20 @ 06:31 by Eriberto Ness DO) Dysmenorrhea Gestational diabetes Hx of migraines Hyperglycemia Menorrhagia Neck pain (~2012) Surgical History (Updated 09/29/20 @ 08:47 by Penelope Spears RN) History of bladder suspension procedure History of History of cholecystectomy History of hysterectomy Status post endometrial ablation (12/23/18) Family & Social History Family History Sister Diabetes mellitus Brother Diabetes mellitus Father Diabetes mellitus Diabetic neuropathy Sister Thyroid disease Social History: household members spouse Prior Living Arrangements House Safety & Behavioral: Feels Safe in Current Yes Environment Been Physically Hurt or No Threatened By a Person Suicidal Ideation Description None Suicide Plan Description No Plan Tobacco & Substance use: Smoking Status Never smoker alcohol intake current alcohol intake frequency holiday/special occasion Substance Use Type does not use Meds Home Medications and Allergies Home Medications Medication Instructions Recorded Confirmed Type Vitamin D3 Complete 800 unit PO DAILY #0 04/01/17 09/29/20 History omeprazole 40 mg capsule,delayed 40 mg PO DAILY 07/30/20 09/29/20 History release acetaminophen 1,000 mg PO Q6H PRN 09/29/20 09/29/20 History ibuprofen [Advil] 600 mg PO Q6H PRN 09/29/20 09/29/20 History multivitamin [Daily Multivitamin] 1 tab PO QAM 09/29/20 09/29/20 History oxybutynin chloride 10 mg PO DAILY 09/29/20 09/29/20 History Allergies Allergy/AdvReac Type Severity Reaction Status Date / Time oxycodone Allergy Severe ITCHING Verified 07/30/20 14:11 venom-honey bee Allergy Severe Anaphylaxis Verified 07/30/20 14:11 [BEE VENOM (HONEY BEE)] morphine [MORPHINE] Allergy Intermediate SWELLING, Verified 07/30/20 14:11 ITCHING, HIVES hydrocodone [HYDROCODONE] Allergy Mild ITCH Verified 07/30/20 14:11 codeine [CODEINE] AdvReac Mild NAUSEA Verified 07/30/20 14:11 Review of Systems Review of Systems Narrative: Negative other than HPI Exam Vital Signs (past 8 hours): - 09/29/20 07:21 09/29/20 11:41 Temperature 99.0 F 98.5 F Pulse Rate 85 102 H Respiratory Rate 16 15 Blood Pressure 134/80 127/89 Pulse Oximetry 95 98 Oxygen Delivery Method Room Air Narrative Exam Narrative: Alert and oriented x3 and excellent historian in no apparent distress. Vital signs are stable. T-max 99? HEENT is remarkable for nasal congestion. Oropharynx unremarkable Neck: Supple without adenopathy or thyromegaly no bruits Chest: Clear to auscultation with no wheezes rhonchi or crackles Cor: Regular rate and rhythm without any murmur, distant S1-S2 Abdomen: Positive bowel sounds, soft, nontender, nondistended, no hepatosplenomegaly No pain in right upper quadrant. She has ecchymosis mid epigastrium. At the port site she has a 2 cm mildly firm area consistent with a hematoma. There is no overlying erythema. There is no drainage. This neuro tenderness to palpation Extremities no edema pulses intact Neurologic exam nonfocal Objective Labs Result Diagrams: 09/29/20 03:15 09/29/20 03:15 Labs: Laboratory Results - last 24 hr 09/29/20 09/29/20 09/29/20 03:15 03:15 03:15 WBC 9.2 RBC 4.42 Hgb 13.6 Hct 40.0 MCV 90.5 MCH 30.9 MCHC 34.1 RDW 13.4 Plt Count 305 Neut % (Auto) 61.8 Lymph % (Auto) 30.0 [place] % (Auto) 4.2 Eos % (Auto) 1.9 L Baso % (Auto) 2.1 H Neut # (Auto) 5700 Lymph # (Auto) 2800 [place] # (Auto) 400 Eos # (Auto) 200 Baso # (Auto) 200 H PT 10.2 INR 0.9 D-Dimer < 200 Sodium 139 Potassium 3.5 Chloride 102 Carbon Dioxide 32 BUN 18 H Creatinine 0.65 Estimated GFR > 60.0 BUN/Creatinine Ratio 27.7 H Glucose 117 H Calcium 9.4 Total Bilirubin 0.4 AST 28 ALT 32 Alkaline Phosphatase 61 Total Creatine Kinase 48 CK-MB (CK-2) TNP CK-MB (CK-2) Rel Index TNP Troponin I < 0.012 NT-Pro-B Natriuret Pep 35 Total Protein 7.9 Albumin 4.5 Globulin 3.4 Albumin/Globulin Ratio 1.3 Lipase 296 Procalcitonin SARS-CoV-2 (PCR) 09/29/20 09/29/20 09/29/20 03:15 05:15 06:22 WBC RBC Hgb Hct MCV MCH MCHC RDW Plt Count Neut % (Auto) Lymph % (Auto) [place] % (Auto) Eos % (Auto) Baso % (Auto) Neut # (Auto) Lymph # (Auto) [place] # (Auto) Eos # (Auto) Baso # (Auto) PT INR D-Dimer Sodium Potassium Chloride Carbon Dioxide BUN Creatinine Estimated GFR BUN/Creatinine Ratio Glucose Calcium Total Bilirubin AST ALT Alkaline Phosphatase Total Creatine Kinase CK-MB (CK-2) CK-MB (CK-2) Rel Index Troponin I < 0.012 NT-Pro-B Natriuret Pep Total Protein Albumin Globulin Albumin/Globulin Ratio Lipase Procalcitonin < 0.05 SARS-CoV-2 (PCR) Negative 09/29/20 13:24 WBC RBC Hgb Hct MCV MCH MCHC RDW Plt Count Neut % (Auto) Lymph % (Auto) [place] % (Auto) Eos % (Auto) Baso % (Auto) Neut # (Auto) Lymph # (Auto) [place] # (Auto) Eos # (Auto) Baso # (Auto) PT INR D-Dimer Sodium Potassium Chloride Carbon Dioxide BUN Creatinine Estimated GFR BUN/Creatinine Ratio Glucose Calcium Total Bilirubin AST ALT Alkaline Phosphatase Total Creatine Kinase CK-MB (CK-2) CK-MB (CK-2) Rel Index Troponin I < 0.012 NT-Pro-B Natriuret Pep Total Protein Albumin Globulin Albumin/Globulin Ratio Lipase Procalcitonin SARS-CoV-2 (PCR) Assessment & Plan Assessment & Plan narrative: 75 minutes was spent with patient in interviewing her and examining her and reviewing her chart and discussing with nursing and formulating a plan of care. 49-year-old female admitted for pleuritic chest pain of unclear etiology Assessment 1. Chest pain of unclear etiology. Reviewed differential diagnosis including pulmonary embolus versus coronary artery disease or acute coronary syndrome verses aortic dissection and that these diagnoses have been ruled out by imaging and lab work at this point. I am suspicious for possible postoperative pneumonia combined with musculoskeletal etiology. We discussed this at length. I do not think this is related to the probable seroma or hematoma at her port site. I also do not think that it was related to her surgery and I do not think it is referred pain from the diaphragm although this is a possibility as well. And we will continue to monitor this is a possible contribution. We will allow a heart healthy diet. Reviewed CT scan of the chest abdomen and pelvis and chest x-ray. Echo is pending. Stress Mibi is ordered for tomorrow. Third troponin CK are pending. Will continue with telemetry. Will treat empirically with azithromycin and ceftriaxone IV. Will repeat chest x-ray in a.m.. Will repeat labs in a.m.. Will have patient do incentive spirometry. Will treat pain with dilaudid, Flexeril, Tylenol, as needed Will use Motrin scheduled for anti-inflammatory. Code status is full code Will treat for GI source with IV Protonix Assessment 2. DVT prophylaxis Lovenox Code status of full code COVID-19 COVID-19 status: Negative Result date/Date tested (Pos, Neg/Pending): 09/29/20 Quality VTE Deep Vein Thrombosis/Pulmonary Embolism Present on Admission: No
[2020-09-29] MEDS: CYCLOBENZAPRINE 10 MG TABLET PO ×2 (14:54→23:20)
[2020-09-29] MEDS: CEFTRIAXONE 1 GM/50 ML FROZ.PIGGY IV (14:54)
[2020-09-29] MEDS: ENOXAPARIN 40 MG/0.4 ML SYRINGE SUBCUT (14:54)
[2020-09-29] MEDS: ACETAMINOPHEN 325 MG TABLET 650 MG PO (14:54)
[2020-09-29] MEDS: AZITHROMYCIN 500 MG in DEXTROSE 5% IN WATER 250 ML IV (16:36)
[2020-09-29] MEDS: IBUPROFEN 400 MG TABLET 600 MG PO (21:23)
[2020-09-30] MEDS: diphenhydrAMINE 25 MG TABLET PO (00:41)
[2020-09-30] MEDS: HYDROMORPHONE 0.5 MG INJ IV ×3 (02:59→08:03)
[2020-09-30 03:00] VITALS: BP 109/80; PULSE 71; RESP 16; TEMP 36.4; O2SAT 95
[2020-09-30] MEDS: SODIUM CHLORIDE 0.9% FLUSH 10 ML IV ×3 (03:00→08:04)
--- NOTE | 2020-09-30 03:05 | PC.NURSE ---
Addendum entered by Liya Orozco R.N. 09/30/20 06:15: Weight appears to be up 2.6kg but actual admission weight was 88.2kg so is only up by 0.7kg Addendum entered by Liya Orozco R.N. 09/30/20 05:26: Pain again back to 5/10 although states the warm blankets did help decrease discomfort. Shoulder pain not as bad as earlier but still states severity overall is 5/10; medicated with scheduled Ibuprofen + IV Dilaudid and given more warm blankets. Original Note: patient seen and assessed at 2319. Is alert and oriented. Breath sounds diminished but CTA with RA sat of 97%. Complains of 5/10 chest pressure and 2/10 neck/shoulder pain but states Dilaudid has helped the muscle pain but does nothing for the chest pressure. Medicated with Flexeril for additional pain relief. Denies any SOB but states she has increased pain when taking a deep breath. HRR with telemetry reading of SR. Denies nausea. BT present and is passing flatus. Denies dysuria, frequency or urgency with urination. Independent with bed mobility. Bandaid dressing to epigastric area with bruising below. Lap sites from previous cholecystectomy/hysterectomy all well approximated and without redness or drainage. Wearing bilateral calf SCD's. Fall risk score is low. Patient able to sleep past couple hours. States pain is still 5/10 in chest and has increased to 5/10 in neck/shoulders so medicated with Dilaudid and warm blankets applied. Plan is to be NPO after 0500 for stress test in a.m. Patient verbalizes understanding.
[2020-09-30] MEDS: IBUPROFEN 400 MG TABLET 600 MG PO ×2 (05:22→14:18)
[2020-09-30 06:13] LABS: Add Manual Diff / Slide Review NO; Basophils Absolute Auto 0 /uL (0-100); Basophils Percent Auto 0.3 % (0-2); Eosinophils Absolute Auto 100 /uL (0-450); Eosinophils Percent Auto 1.7 % (2-4); Hematocrit 35.5 % (36-46); Hemoglobin 12.4 g/dL (12.0-16.0); Lymphocytes Absolute Auto 2100 /uL (1100-4500); Lymphocytes Percent Auto 27.9 % (25-40); Mean Corpuscular HGB Conc 34.9 % (30-36); Mean Corpuscular Hemoglobin 31.6 PG (26-34); Mean Corpuscular Volume 90.4 fL (80-100); Monocytes Absolute Auto 600 /uL (0-900); Monocytes Percent Auto 7.8 % (3-14); Neutrophils Absolute Auto 4700 /uL (1500-7000); Neutrophils Percent Auto 62.3 % (50-75); Platelet Count 244 X10^3/uL (150-400); Red Blood Cell Count 3.93 X10^6/uL (4.0-5.2); Red Cell Distribution Width 12.9 % (11.6-14.8); White Blood Cell Count 7.6 X10^3/uL (4.5-11.0)
[2020-09-30 06:19] LABS: Alanine Aminotransferase 27 IU/L (<35); Albumin 3.8 g/dL (3.5-5.0); Albumin Globulin Ratio 1.3 (1.0-2.8); Alkaline Phosphatase 55 U/L (38-126); Aspartate Aminotransferase 23 IU/L (14-36); BUN Creatinine Ratio 26.8 (6-22); Bilirubin Total 0.8 mg/dL (0.2-1.3); Blood Urea Nitrogen 15 mg/dL (7-17); Calcium 8.9 mg/dL (8.4-10.2); Carbon Dioxide 31 mmol/L (22-32); Chloride 102 mmol/L (98-107); Estimated Glomerular Filt Rate > 60.0 mL/min (>60); Glucose 115 mg/dL (70-100); HEMOLYSIS < 15 (0-50); Potassium 4.1 mmol/L (3.4-5.1); Sodium 137 mmol/L (137-145); Total Protein 6.8 g/dL (6.3-8.2)
[2020-09-30 07:00] VITALS: O2SAT 98
--- NOTE | 2020-09-30 07:00 | DI.RAD.S_ITS ---
PROCEDURE: XR CHEST 2V INDICATIONS: pleuritic chest pain TECHNIQUE: 2 views of the chest were acquired. COMPARISON: [facility], CR, XR CHEST 1V, 09/29/2020, 3:17. FINDINGS: Surgical changes and devices: None. Lungs and pleura: Lungs are clear. No pleural effusions or pneumothorax. There is a small degree of right-sided perihilar bronchial wall prominence Mediastinum: Mediastinal contours are normal. Heart size is normal. Bones and chest wall: No suspicious bony abnormalities. Soft tissues appear unremarkable. IMPRESSION: Normal for age except for what appears to be a slight degree of bronchitis at the right perihilar lung parenchyma, source of current pleuritic chest pain symptoms is not seen otherwise. Dictated by: Jase Muir M.D. on 09/30/2020 at 8:16 Approved by: Jase Muir M.D. on 09/30/2020 at 8:16
[2020-09-30 08:00] VITALS: BP 114/78; PULSE 78; RESP 16; TEMP 36.6
[2020-09-30] MEDS: PANTOPRAZOLE 40 MG VIAL IV (08:03)
[2020-09-30] MEDS: ENOXAPARIN 40 MG/0.4 ML SYRINGE SUBCUT (08:03)
[2020-09-30] MEDS: CYCLOBENZAPRINE 10 MG TABLET PO (08:03)
[2020-09-30] MEDS: ONDANSETRON 4 MG/2 ML INJ IV (08:52)
[2020-09-30 12:00] VITALS: BP 120/76; PULSE 80; RESP 16; TEMP 36.7
--- NOTE | 2020-09-30 13:27 | PM.TREADMILL ---
Cardiac Stress Test Report Referral & Results Date Patient Seen: 09/30/20 Time Patient Seen: 13:28 Requesting provider: Nichole Bates Indication: Chest pain Rest ECG: Sinus rhythm Procedure Note: Standard Melquiades protocol, 8:59, 8.9 METS Good exercise capacity, WILL -14% Normal hemodynamic response to exercise No chest pain or anginal symptoms No significant ST changes at peak exercise; no ectopy Impression: Normal exercise stress test Please note: Actual ECG tracings can be found in the PACS system.
[2020-09-30] MEDS: CEFTRIAXONE 1 GM/50 ML FROZ.PIGGY IV (14:18)
--- NOTE | 2020-09-30 14:37 | CM.DPC ---
DCP Cont: Per RN, pt off the floor for Stress test this morning and recently back to the floor and resting but no concerns at this time. Dr. Amado was bedside this morning and will return this afternoon after Stress Test results read to determine if pt stable for d/c today. Per results, no concerns at this time. SW updated RN and expectation is that MD will round again this afternoon after reading results and likely d/c pt home with outpt follow up. Plan: SW to follow for likely pt d/c home this evening now that Stress test complete and spouse to provide transport home. Chery Azevedo MSW
[2020-09-30 16:10] VITALS: BP 111/79; PULSE 81; RESP 20; TEMP 37.2; O2SAT 97
--- NOTE | 2020-09-30 16:32 | PM.DS.1 ---
History of Present Illness History of Present Illness Date Patient Seen: 09/30/20 Time Patient Seen: 07:20 Chief complaint: chest pressure, neck pain Narrative: This is a very pleasant fairly healthy 49-year-old female who is under the primary care of Dr. Marian Amado. She presented to emergency department via private vehicle with the complaint of pleuritic chest pain neck and shoulder pain. She had extensive workup in the emergency room which included a chest x-ray that showed right perihilar inflammation and possible atelectasis in the bases of the lung. She had a CT angiogram which did not show evidence of pulmonary embolus or aortic dissection and showed possible atelectasis versus atypical pneumonia in the bilateral lower lung field. She had a CT of the abdomen and pelvis which did not show any evidence of free air or abnormality other than a 2 cm suspected seroma in the port from the laparoscopic-assisted cholecystectomy which she underwent on 09/10/[address] Burnham at [facility]. She was treated with sublingual nitroglycerin x2 without change in her pain. Her EKGs were negative. She was given a GI cocktail without improvement of her pain. She was given 15 mg of IV Toradol without improvement of her pain. She was given 0.5 mg of IV Dilaudid without improvement in her pain. She had a CK and troponin x2 that were negative. Her remaining labs were normal and her vital signs were stable. At the time of my evaluation she states that the pain is really pleuritic in nature sub sternal chest and she does have pain radiating to the back of her head and her musculature of her cervical and thoracic spine as well as lateral trapezius. This is not changed since her presentation. Patient states that she underwent laparoscopic-assisted cholecystectomy by Dr. Wooten on day 8 at [facility] on September 10. There were no complications and she was home within 3 hours of the start time of the surgery. She had a postop follow-up via telehealth and was having no problems. She did have a episode where she drink water and aspirated a little and coughed very hard and she felt a tearing in her upper incision. But never had any further problems. She then was eating dinner at her son's last night and she had turkey tacos and the Wednesday and then shortly thereafter developed pain in her right upper quadrant and mid epigastrium. That went away and did not recur her and then she started having pain in her posterior neck upper back her scalene muscles and SCM muscles of the neck. She attempted to go to sleep but was having difficulty because of this pain and then she started having pain taking a deep breath and so she went to the emergency department for evaluation. Patient has had a fairly complicated recent medical history. Apparently in May she developed abdominal pain and initially CT scan showed inflammation and they treated her in the hospital for diverticulitis. They then did 8 ultrasound of her uterus and noted a fibroid that was necrotic. They did a CA 125 which was elevated and she was referred to Dr. Cade on. Dr. Brink did not think this was cancerous. The patient then went to see Dr. Weller at [facility] and on July 03 she underwent a hysterectomy with a left salpingo-oophorectomy and right salpingectomy but her right ovary was left. Apparently she had extensive endometriosis and had ablation of these lesions. She recovered from the surgery well and and quickly went off her pain medications could she does not like to be on pain medications because they make her itch and then she had abdominal pain and a cholecystitis and gallstones were found. She met with Dr. Romero and they decided to put off doing the cholecystectomy until she has fully recovered from her hysterectomy. She never had this abdominal pain again. She underwent an EGD and a colonoscopy through [facility] on August 19 and they found 5 polyps that were benign and 1 adenomatous polyp so they are repeating in 5 years she also had a benign polyp in her esophagus but no other abnormalities. Discharge Providers Provider Date of admission: 09/29/20 06:29 Discharge Date: 09/30/20 Primary care physician: Meera Amado MD Discharge provider: Meera Amado MD Summary Hospital Course Discharge Diagnosis: Atypical chest pain Hospital Course: The pt was admitted for atypical chest pain. She had a complete work-up including cardiac enzymes, chest/abd/pelvis CT, echocardiogram, and stress testing that were all negative. She was initially started on antibiotics due to concern for pneumonia, however repeat CXR did not confirm this, and antibiotics were not continued on discharge. GI cocktail did not help the pain. Morphine/dilaudid provided limited relief. Her pain was gradually improving throughout her hospitalization. Due to the pt with a negative work-up, it was determined her pain was most likely musculoskeletal in nature. She was discharged home with strict return precautions. Status at Discharge Cognitive/behavioral status at discharge: oriented Functional status at discharge: independent ambulation Overall status at discharge: patient is progressing back to baseline Time Spent with Patient Time spent: Greater than 30 minutes Exam Vital Signs (past 8 hours): - 09/30/20 12:00 09/30/20 16:10 Temperature 98.1 F 98.9 F Pulse Rate 80 81 Respiratory Rate 16 20 Blood Pressure 120/76 111/79 Pulse Oximetry 97 Oxygen Delivery Method Room Air Oxygen Flow Rate 0 Narrative Exam Narrative: Gen: NAD, sitting comfortably in bed, appears well CV: RRR, no murmurs Resp: clear to auscultation bilaterally Abd: soft, nontender, nondistended, normoactive bowel sounds Ext: no edema Objective Labs Result Diagrams: 09/30/20 06:00 09/30/20 06:00 Labs: Laboratory Results - last 24 hr 09/30/20 09/30/20 06:00 06:00 WBC 7.6 RBC 3.93 L Hgb 12.4 Hct 35.5 L MCV 90.4 MCH 31.6 MCHC 34.9 RDW 12.9 Plt Count 244 Neut % (Auto) 62.3 Lymph % (Auto) 27.9 Darke % (Auto) 7.8 Eos % (Auto) 1.7 L Baso % (Auto) 0.3 Neut # (Auto) 4700 Lymph # (Auto) 2100 Darke # (Auto) 600 Eos # (Auto) 100 Baso # (Auto) 0 Sodium 137 Potassium 4.1 Chloride 102 Carbon Dioxide 31 BUN 15 Creatinine 0.56 Estimated GFR > 60.0 BUN/Creatinine Ratio 26.8 H Glucose 115 H Calcium 8.9 Total Bilirubin 0.8 AST 23 ALT 27 Alkaline Phosphatase 55 Total Protein 6.8 Albumin 3.8 Globulin 3.0 Albumin/Globulin Ratio 1.3 [facility] Medical History (Updated 09/29/20 @ 06:31 by Eriberto Ness DO) Dysmenorrhea Gestational diabetes Hx of migraines Hyperglycemia Menorrhagia Neck pain (~2012) Surgical History (Updated 09/29/20 @ 08:47 by Penelope Spears RN) History of bladder suspension procedure History of History of cholecystectomy History of hysterectomy Status post endometrial ablation (12/23/18) Family History Sister Diabetes mellitus Brother Diabetes mellitus Father Diabetes mellitus Diabetic neuropathy Sister Thyroid disease Social History household members: spouse Smoking Status: Never smoker alcohol intake: current Discharge Plan Discharge Plan Patient Disposition: Home Discharge orders & Medications Prescriptions: New cyclobenzaprine 10 mg Tablet 10 mg PO Q8HR PRN (Reason: Spasms) Qty: 20 RF: 0 Continued omeprazole 40 mg capsule,delayed release(DR/EC) 40 mg PO DAILY RF: 0 Vitamin D3 Complete tablet 800 unit PO DAILY Qty: 0 RF: 0 oxybutynin chloride 10 mg tablet extended release 24hr 10 mg PO DAILY RF: 0 multivitamin Tablet 1 tab PO QAM RF: 0 acetaminophen 500 mg tablet 1,000 mg PO Q6H PRN (Reason: Pain (Scale Score 1-3)) RF: 0 ibuprofen [Advil] 200 mg Tablet 600 mg PO Q6H PRN (Reason: Pain (Scale Score 1-3)) RF: 0 Follow up/Referrals: Meera Amado MD [Primary Care Provider] - Visit Report/Discharge Packet Visit Report Forms: Patient Portal/API, Stroke Signs & Symptoms Discharge Data Primary Care Provider: Meera Amado Attending Provider: Meera Amado Admit Date/Time: 09/29/20 06:29 Discharges patient from system. Discharge Date/Time: 09/30/20 17:05 Quality VTE Deep Vein Thrombosis/Pulmonary Embolism Present on Admission: No
--- NOTE | 2020-09-30 16:40 | PC.NURSE ---
Addendum entered by Gracie Parra R.N. 09/30/20 17:21: Pt HL discontinued intact. Discharge instructions given w/apparent understanding Pt & escorted by staff to waiting vehicle Pt D/C in stable condition. Original Note: Dr Amado in to see pt. Order for discharge recieved. Tele showing NSR per [facility] staff. SpO2 97% RA Pt denies discomfort, up ad titi in room. Will prepare for D/C
--- NOTE | 2020-09-30 17:49 | DI.NM.S_ITS ---
DATE OF SERVICE: 09/30/2020 PROCEDURE PERFORMED: Exercise treadmill stress and rest myocardial perfusion imaging with gating to assess ejection fraction and regional wall motion. ORDERING PROVIDER: Dr. Meera Amado. INDICATIONS: The patient is a 49-year-old female admitted with atypical, pleuritic chest discomfort. EXERCISE TREADMILL TESTING: The patient was able to exercise for 8 minutes 59 seconds on a standard Melquiades protocol, suggesting very good exercise capacity with an WILL of -14%, achieving 10.1 METs. She had a normal heart rate and blood pressure response to exercise, achieving a maximum heart rate of 160 BPM (94% of her predicted maximum). She had no chest discomfort. Her resting ECG appears normal and there are no significant ST segment shifts with exercise. No arrhythmias were seen. At 7 minutes 30 seconds of exercise at a heart rate of 155 bpm, 26.3 millicuries of technetium-99m Myoview was injected and the patient was imaged 20 minutes later using a gated SPECT acquisition protocol. Earlier in the day while at rest, she was injected with 11.9 millicuries of technetium-99m Myoview and was imaged 30 minutes following that injection, again using a gated SPECT acquisition protocol. FINDINGS: 1. Raw data: There is fairly good myocardial tracer uptake although there prominent breast shadows are noted that clearly produce significant attenuation artifact. While the lung/heart ratio is mildly elevated at 0.44, which can be a sign of pulmonary congestion, this is not evident visually and may reflect breast attenuation. TID ratio is normal at 0.98. 2. Quantitated gated SPECT: Post-stress ejection fraction is estimated at 72% without any focal wall motion abnormality. Resting ejection fraction is 71% with an end-diastolic volume of 99 mL. 3. Post-stress supine images show a fairly normal myocardial perfusion pattern with a very subtle defect in the mid anterior wall in a pattern that would be most consistent with breast attenuation artifact, supported by its complete resolution on the prone images, revealing a normal, homogeneous pattern of tracer activity. The resting images show improvement in his mid anterior defect, but this most likely reflects differential breast positioning. IMPRESSION: 1. Probable normal myocardial perfusion study. 2. Subtle, mildly reversible mid anterior perfusion defect that completely resolves on prone imaging, most consistent with breast attenuation artifact. There are no concerning areas of myocardial ischemia or previous myocardial infarction. 3. Normal left ventricular systolic function without any focal wall motion abnormality. While the lung/heart ratio is borderline elevated at 0.44, which can be a sign of pulmonary congestion, this is likely nonspecific in this setting, and it is not evident visually. 4. Very good exercise capacity without angina or ECG evidence of ischemia. Collette Gutierres - GENE/thanh/lc doc#: [id number]/job#: [id number] dd: 09/30/2020 16:44:00 dt: 09/30/2020 17:32:00 DICTATING MD/COPIES TO: Ren Stanley MD; Meera Amado MD COPIES MNE: EMERALD;
== END 2020-09-30 17:05 | disposition home or self-care (01) ==
LOC: ED 03:02 → AC 06:29
PROVIDERS: Admitting Provider Family Medicine; Emergency Provider Emergency Medicine; PCP Family Medicine; Referring Provider Emergency Medicine; Visit Provider Family Medicine
DX: R07.9 Chest pain, unspecified (principal); Z20.822 Contact with and (suspected) exposure to COVID-19
CPT/HCPCS: 36415; 71045; 71046; 71275; 74177; 78452; 80053; 82550; 83690; 83880; 84145; 84484; 85025; 85379; 85610; 87635; 93005; 93017; 93306; 96361; 96365; 96366; 96367; 96372; 96375; 96376; 99217; 99284; 99291; C9803; G0378; A9502; C9113; J1170; J1650; J1885; J2405; Q9967

== ENCOUNTER 2023-09-05 23:47 | Emergency (ER) | payer BC, SELFPAY ==
[2023-09-05 23:47] VITALS: BMI 31.6
[2023-09-05 23:58] VITALS: BP 169/94; PULSE 82; RESP 17; TEMP 36.8; O2SAT 98; BMI 34.9
[2023-09-06] VITALS (7 sets, daily range): BP systolic 134–169; BP diastolic 70–99; PULSE 65–80; RESP 12–23; O2SAT 94–96
--- NOTE | 2023-09-06 00:03 | DI.RAD.S_ITS ---
PROCEDURE: XR CHEST 1V INDICATIONS: chest pain TECHNIQUE: One view of the chest was acquired. COMPARISON: None. FINDINGS: Surgical changes and devices: None. Lungs and pleura: Low lung volumes. No dense consolidation or pleural effusion Mediastinum: Normal heart size Bones and chest wall: Degenerative changes. IMPRESSION: On this single view radiograph with low lung volumes, no acute abnormality. Dictated by: Nathaniel Colon M.D. on 09/06/2023 at 0:23 Approved by: Nathaniel Colon M.D. on 09/06/2023 at 0:27
[2023-09-06] MEDS: ASPIRIN 81 MG CHEW TAB 324 MG PO (00:11)
--- NOTE | 2023-09-06 00:25 | ED.CHESTPAIN ---
HPI - Chest Pain General Chief Complaint: Chest Pain Stated Complaint: SOB, Fatigue, chest pain Time Seen by Provider: 09/06/23 00:25 Source: patient Mode of arrival: Ambulatory Limitations: no limitations History of Present Illness HPI narrative: 52-year-old woman with a history of hysterectomy for necrotic fibroid and elevated CA 125 that did return as benign. She has had a laparoscopic assisted cholecystectomy with complicating seroma at the port site in 2020. She presents today with complaints of worsening shortness of breath. She states that she is noticed this intermittently more off than on for the last 2 years and does associated with periods when her reflexes a bit worse. Over the last couple of months she has had both increasing reflux and increasing frequency of exertional dyspnea in the last few days she is finding that she is significantly fatigued and having difficulty even walking up her stairs due to her dyspnea. At 9:00 p.m. tonight she noticed some left upper chest pain while she was at rest. The pain seems to have resolved at this point. After the issues associated with a hysterectomy and cholecystectomy in 2020 she has not followed up with any of her providers. She notes that her blood sugars are definitely higher than they should be with numbers consistently in the 180 range and after bowl of ice cream as high as 280. She was not complaining of polyuria, polydipsia but does note that she can tell when her sugar is high and feels general malaise. She has regular reflux but does not want to be on Prilosec on a scheduled basis due to side effects. She has stop this completely. She does note specific diet interventions that do make her reflux better and worse and has trouble avoiding the choices that cause worsening reflux. She also notes that she is gained quite a bit of weight over the last 2 years that also seems to make the above issues worse. She describes no recent fever, cough, chills, vomiting, headaches Related Data Home Medications Medication Instructions Recorded Confirmed Vitamin D3 Complete 800 unit PO DAILY ##0 04/01/17 09/29/20 omeprazole 40 mg capsule,delayed 40 mg PO DAILY 07/30/20 09/29/20 release acetaminophen 500 mg tablet 1,000 mg PO Q6H PRN Pain (Scale 09/29/20 09/29/20 Score 1-3) ibuprofen 200 mg tablet (Advil) 600 mg PO Q6H PRN Pain (Scale 09/29/20 09/29/20 Score 1-3) multivitamin 1 tab PO QAM 09/29/20 09/29/20 oxybutynin chloride 10 mg 10 mg PO DAILY 09/29/20 09/29/20 tablet,extended release 24 hr Previous Rx's Medication Instructions Recorded cyclobenzaprine 10 mg tablet 10 mg PO Q8HR PRN Spasms #20 tabs 09/30/20 acyclovir 400 mg tablet 400 mg PO TID PRN Cold Sores #30 10/20/22 tabs metformin 850 mg tablet 850 mg PO BIDWMEAL #60 tabs 09/06/23 Allergies Allergy/AdvReac Type Severity Reaction Status Date / Time oxycodone Allergy Severe ITCHING Verified 07/30/20 14:11 venom-honey bee Allergy Severe Anaphylaxis Verified 07/30/20 14:11 [BEE VENOM (HONEY BEE)] morphine [MORPHINE] Allergy Intermediate SWELLING, Verified 07/30/20 14:11 ITCHING, HIVES hydrocodone [HYDROCODONE] Allergy Mild ITCH Verified 07/30/20 14:11 codeine [CODEINE] AdvReac Mild NAUSEA Verified 07/30/20 14:11 Review of Systems Review of Systems Narrative: Pertinent positive and negative findings as per HPI Patient History Medical History Hx of migraines Hyperglycemia Gestational diabetes Dysmenorrhea Menorrhagia Neck pain (~2012) Surgical History History of bladder suspension procedure History of cholecystectomy History of hysterectomy Status post endometrial ablation (12/23/18) History of Family History Sister Diabetes mellitus Brother Diabetes mellitus Father Diabetes mellitus Diabetic neuropathy Sister Thyroid disease Social History household members: spouse Smoking Status: Never smoker alcohol intake: current Smoking Status: Never smoker alcohol intake frequency: a few times a month Substance Use Type: does not use Exam Initial Vital Signs Initial Vital Signs: Vital Signs Temperature 98.2 F 09/05/23 23:58 Pulse Rate 82 09/05/23 23:58 Respiratory Rate 17 09/05/23 23:58 Blood Pressure 169/94 H 09/05/23 23:58 Pulse Oximetry 98 09/05/23 23:58 Oxygen Delivery Method Room Air 09/05/23 23:58 General: Healthy appearing, in no acute distress. Able to give a complete and coherent history. Well-nourished well-developed HEENT: Moist mucous membranes, normal sclera with reactive pupils, Neck: No JVD, supple Respiratory: Lungs are clear to auscultation, no wheezing no rales no rhonchi. Full and symmetrical air movement Chest: No significant point tenderness along left sternal border or reproducible tenderness to palpation in the left upper chest wall. No skin changes over the area of concern Cardiac: Regular rate and rhythm no murmurs no bruits Abdomen: Soft, nontender, good bowel tones, no flank pain Skin: Warm and dry, no rashes Neurologic: Grossly neurologically intact with no obvious asymmetries or abnormalities Extremities: No trauma, well perfused Psych: Cooperative, appropriate insight and affect Course Orders Ordered: ED Orders 09/06/23 Complete Blood Count AUTO DIFF Stat Comprehensive Metabolic Panel Stat Lipase Stat Magnesium Stat NT-proBNP (BNP-Adult 18+) Stat PTT Partial Thromboplastin Antonio Stat Prothrombin Time INR Stat Troponin & CK Cardiac Panel Stat 09/06/23 00:03 XR chest 1V Stat EKG-12 Lead Stat Discontinued Medications Aspirin (Aspirin 81 Mg Chew Tab) 324 mg PO NOW ONE Stop: 09/06/23 00:04 Last Admin: 09/06/23 00:11 Dose: 324 mg Documented By: RENUKA Vital Signs Vital signs: Vital Signs - 8 hr 09/05/23 23:58 09/06/23 00:03 09/06/23 00:30 Temperature 98.2 F Pulse Rate 82 80 76 Respiratory Rate 17 23 12 Blood Pressure 169/94 H Pulse Oximetry 98 96 96 Oxygen Delivery Method Room Air Room Air Room Air 09/06/23 00:46 09/06/23 00:46 09/06/23 00:48 Temperature Pulse Rate 77 Respiratory Rate 23 Blood Pressure 169/99 H 169/99 H Pulse Oximetry 96 Oxygen Delivery Method 09/06/23 01:00 09/06/23 01:00 Temperature Pulse Rate 68 Respiratory Rate 14 Blood Pressure 135/81 Pulse Oximetry 94 Oxygen Delivery Method Room Air MDM - Chest Pain Lab Data 09/06/23 00:33 09/06/23 00:33 Labs: Lab Results 09/06/23 Range/Units 00:33 WBC 7.4 (4.5-11.0) X10^3/uL RBC 4.26 (4.0-5.2) X10^6/uL Hgb 13.4 (12.0-16.0) g/dL Hct 38.0 (36-46) % MCV 89.1 (80-100) fL MCH 31.5 (26-34) PG MCHC 35.3 (30-36) % RDW 13.4 (11.6-14.8) % Plt Count 232 (150-400) X10^3/uL Neut % (Auto) 52.5 (50-75) % Lymph % (Auto) 38.9 (25-40) % Overton % (Auto) 5.9 (3-14) % Eos % (Auto) 1.4 L (2-4) % Baso % (Auto) 1.3 (0-2) % Neut # (Auto) 3900 (2054-7032) /uL Lymph # (Auto) 2900 (8266-4250) /uL Overton # (Auto) 400 (0-900) /uL Eos # (Auto) 100 (0-450) /uL Baso # (Auto) 100 (0-100) /uL PT 10.9 (9.4-12.5) SECONDS INR 1.0 (0.9-1.3) APTT 33 (25.1-36.5) SECONDS Sodium 136 L (137-145) mmol/L Potassium 3.6 (3.4-5.1) mmol/L Chloride 104 (98-107) mmol/L Carbon Dioxide 23 (22-32) mmol/L BUN 12 (7-17) mg/dL Creatinine 0.59 (0.52-1.04) mg/dL Estimated GFR > 60 (>60) mL/min BUN/Creatinine Ratio 20.3 (6-22) Glucose 171 H (70-100) mg/dL Calcium 9.2 (8.4-10.2) mg/dL Magnesium 1.9 (1.6-2.3) mg/dL Total Bilirubin 0.7 (0.2-1.3) mg/dL AST 35 (14-36) IU/L ALT 40 H (<35) IU/L Alkaline Phosphatase 55 (38-126) U/L Total Creatine Kinase 87 (30-135) U/L Troponin I < 0.012 (0.01-0.034) ng/mL NT-Pro-B Natriuret Pep < 20 (<125) pg/mL Total Protein 7.3 (6.3-8.2) g/dL Albumin 4.0 (3.5-5.0) g/dL Globulin 3.3 (1.7-4.1) g/dL Albumin/Globulin Ratio 1.2 (1.0-2.8) Lipase 160 (23-300) U/L MDM Narrative Medical decision making narrative: CC: Exertional dyspnea with left-sided chest pain Complicating co-morbidities: Weight gain, untreated diabetes, no primary care for at least 2 years Data collected from: patient Differential considered: Acute coronary syndrome, anemia, poorly-controlled diabetes, exertional dyspnea secondary to weight increase Exam documented above, pertinent findings include: Exam is relatively benign. She has no reproducible chest pain, is pain-free and feels that her breathing is free and even at time of our exam Lab Test results independently reviewed as above. Pertinent findings: CBC is unremarkable with no significant anemia Chemistries are reassuring Troponin is undetectable ProBNP is unremarkable Lipase is within normal limits Independently reviewed EKG: Sinus rhythm at a rate of 83, normal intervals, normal axis. No acute ischemic changes Imaging studies independently reviewed: Chest x-ray shows no infiltrates, pneumothorax, effusions and normal cardiac silhouette Discussion: 52-year-old woman who has not seen a primary care doctor in almost 2 years, has had a significant change in diet that has led to increased reflux and weight gain. She notes that she has a very small torso and it feels like she is gained enough weight that she is and it is pushing up on her lungs. This in fact is likely true. Workup today was entirely unremarkable. There is no evidence of acute coronary syndrome severe anemia, infection, congestive heart failure or alternate explanation that would explain the 2-3 years of increasing exertional dyspnea. We also talked about her reflux. It had been controlled with omeprazole in the past. We talked about diet changes, elevating the head of her bed, increasing activity overall and using Prilosec on a as needed basis if she is having particularly severe reflux any specific day. Finally, we discussed her elevated blood sugars. She notes that she is consistently in the 180 range and postprandial numbers are as high as 280. We would long discussion regarding medications and opted to try metformin 850 b.i.d. with meals to see if it makes any difference for her. Prescription is given hopefully to last until she was finally able to get back into a primary care physician. Questions are answered and she is safe for discharge Discharge Plan Departure Patient Disposition: Home Clinical Impression: Acute dyspnea Instructions: DI for Atypical Chest Pain Activity Restrictions/Additional Instructions: Thank you for coming in today Your workup is actually quite reassuring. I find no explanation for your acute dyspnea. You are no longer anemic and it looks like your iron stores have been adequately replenished. Continuing to eat iron rich foods we will be helpful that you probably do not need to continue with iron supplementation. There is no evidence collapsed lung, infiltrates or pneumonia in your lungs or congestive heart failure. You had questions about you are reflux as well as weight. The weight increase can absolutely make reflux worse and can be causing some of the dyspnea you are describing. You do need to get back in to your primary care provider for routine care. In the meantime I have added hemoglobin A1c to your blood work I am also going to suggest adding Glucophage/metformin twice a day with you are 2 biggest meals of the day. This is a medication that can help prevent your blood sugar from getting quite so high but will not cause low blood sugars. Prescription was called to [facility] in [place] If you do have the capacity I would recommend checking blood sugars a couple of times a week, fasting blood sugars a couple of times and blood sugars 2 hours after a meal will be helpful as well. Similarly, checking your blood pressure a couple of times a week will be helpful when you reestablished with your primary care doctor in deciding if additional medications will be recommended for you. I would recommend looking at overall diet, it sounds like you understand what foods do cause more reflux for you. These are going to be the same types of foods that increase your blood sugar. Avoiding these and adding small amounts of exercise such as walking 15-30 minutes today can make a huge change in your overall health and well-being. If you find that you are getting worse or develop any new symptoms, please feel free to return to the emergency department for further evaluation. Prescriptions: New metformin 850 mg tablet 850 mg PO BIDWMEAL Qty: 60 6RF No Action omeprazole 40 mg capsule,delayed release(DR/EC) 40 mg PO DAILY Vitamin D3 Complete tablet 800 unit PO DAILY Qty: 0 acyclovir 400 mg tablet 400 mg PO TID PRN (Reason: Cold Sores) Qty: 30 0RF Rx Instructions: please notify patient this is the last feel till she is seen in office oxybutynin chloride 10 mg tablet extended release 24hr 10 mg PO DAILY Patient Comments: take 1 tablet by mouth once daily. patient states hasn't started yet multivitamin Tablet 1 tab PO QAM acetaminophen 500 mg tablet 1,000 mg PO Q6H PRN (Reason: Pain (Scale Score 1-3)) ibuprofen [Advil] 200 mg Tablet 600 mg PO Q6H PRN (Reason: Pain (Scale Score 1-3)) cyclobenzaprine 10 mg Tablet 10 mg PO Q8HR PRN (Reason: Spasms) Qty: 20 0RF Referrals: Meera Amado MD [Primary Care Provider] - Stand Alone Forms: Patient Portal/API
[2023-09-06 00:44] LABS: Add Manual Diff / Slide Review NO; Basophils Absolute Auto 100 /uL (0-100); Basophils Percent Auto 1.3 % (0-2); Eosinophils Absolute Auto 100 /uL (0-450); Eosinophils Percent Auto 1.4 % (2-4); Hemoglobin 13.4 g/dL (12.0-16.0); Lymphocytes Absolute Auto 2900 /uL (1100-4500); Lymphocytes Percent Auto 38.9 % (25-40); Mean Corpuscular HGB Conc 35.3 % (30-36); Mean Corpuscular Hemoglobin 31.5 PG (26-34); Mean Corpuscular Volume 89.1 fL (80-100); Monocytes Absolute Auto 400 /uL (0-900); Monocytes Percent Auto 5.9 % (3-14); Neutrophils Absolute Auto 3900 /uL (1500-7000); Neutrophils Percent Auto 52.5 % (50-75); Platelet Count 232 X10^3/uL (150-400); Red Blood Cell Count 4.26 X10^6/uL (4.0-5.2); Red Cell Distribution Width 13.4 % (11.6-14.8); White Blood Cell Count 7.4 X10^3/uL (4.5-11.0)
[2023-09-06 00:50] LABS: Prothrombin Time 10.9 SECONDS (9.4-12.5)
[2023-09-06 00:53] LABS: PTT Partial Thromboplastin Tim 33 SECONDS (25.1-36.5)
[2023-09-06 00:54] LABS: Alanine Aminotransferase 40 IU/L (<35); Alkaline Phosphatase 55 U/L (38-126); Aspartate Aminotransferase 35 IU/L (14-36); BUN Creatinine Ratio 20.3 (6-22); Bilirubin Total 0.7 mg/dL (0.2-1.3); Blood Urea Nitrogen 12 mg/dL (7-17); Calcium 9.2 mg/dL (8.4-10.2); Carbon Dioxide 23 mmol/L (22-32); Chloride 104 mmol/L (98-107); Creatine Kinase 87 U/L (30-135); Estimated Glomerular Filt Rate > 60 mL/min (>60); Globulin 3.3 g/dL (1.7-4.1); Glucose 171 mg/dL (70-100); HEMOLYSIS 21 (0-50); Magnesium 1.9 mg/dL (1.6-2.3); Potassium 3.6 mmol/L (3.4-5.1); Sodium 136 mmol/L (137-145); Total Protein 7.3 g/dL (6.3-8.2)
[2023-09-06 00:55] LABS: Albumin Globulin Ratio 1.2 (1.0-2.8); Lipase 160 U/L (23-300)
[2023-09-06 01:06] LABS: NT-proBNP (BNP-Adult 18+) < 20 pg/mL (<125); Troponin I < 0.012 ng/mL (0.01-0.034)
[2023-09-06 02:09] LABS: Hemoglobin A1C% w Est Avg Glu 7.2 % (4.0-6.0)
== END 2023-09-06 02:13 | disposition home or self-care (01) ==
PROVIDERS: Emergency Provider Emergency Medicine; PCP Family Medicine
DX: R06.09 Other forms of dyspnea (principal); R03.0 Elevated blood-pressure reading, without diagnosis of hypertension
CPT/HCPCS: 36415; 71045; 80053; 82550; 83036; 83690; 83735; 83880; 84484; 85025; 85610; 85730; 93005; 93010; 99284

== ENCOUNTER → 2023-11-30 08:25 | Outpatient (CLI) | payer BC, SELFPAY ==
[2023-09-27 11:37] VITALS: BMI 31.6
--- NOTE | 2023-11-30 08:27 | DI.CT.S_ITS ---
PROCEDURE: CT ABDOMEN PELVIS W CON INDICATIONS: epigastric pain TECHNIQUE: After the administration of intravenous contrast, axial sections acquired from the lung bases to the pubic symphysis. Coronal and sagittal reformats were performed. For radiation dose reduction, the following was used: automated exposure control, adjustment of mA and/or kV according to patient size. COMPARISON: [facility], CT, CT ABDOMEN PELVIS W CON, 09/29/2020, 3:56. FINDINGS: Image quality: Diagnostic. Lower Chest: No significant findings. ABDOMEN: Liver: No solid mass. Diffuse hypoattenuation of the liver. Gallbladder: Cholecystectomy. Biliary ducts: No biliary dilation. Pancreas: No ductal dilation. Spleen: Size is within normal limits. Adrenal Glands: No adrenal nodules. Kidneys and Ureters: No hydronephrosis. No solid mass. No complex renal cystic lesion which requires follow up. Stomach and Bowel: No hiatal hernia. Stomach is grossly normal, accounting for under distention. Small and large bowel is normal in caliber, without obstruction. Normal appendix (2/56). No pneumatosis or portal venous gas Peritoneum: No abnormal intraperitoneal fluid. No free air. Ventral Wall: No significant ventral hernia. Previously seen fluid in the right upper quadrant is no longer seen. Abdominal Nodes: No retroperitoneal or mesenteric adenopathy by size criteria. Vessels: Aorta and inferior vena cava are normal in size. PELVIS: Pelvic Organs: Unremarkable. Bladder: No bladder wall thickening, accounting for underdistention. Pelvic Nodes: No enlarged lymph nodes. Miscellaneous: No inguinal hernias are seen. Bones: No aggressive osseous abnormality. IMPRESSION: Dictated by: Jorge Bedoya M.D. on 11/30/2023 at 11:22 Approved by: Jorge Bedoya M.D. on 11/30/2023 at 11:26
== END ==
LOC: CT 08:26
PROVIDERS: PCP Family Medicine; Referring Provider Surgery; Visit Provider Surgery
DX: R10.9 Unspecified abdominal pain (principal); M47.817 Spondylosis without myelopathy or radiculopathy, lumbosacral region; Z90.49 Acquired absence of other specified parts of digestive tract
CPT/HCPCS: 74177; Q9967

== ENCOUNTER 2023-12-13 10:23 | Day surgery (SDC) | payer BC, SELFPAY ==
[2023-09-27 11:37] VITALS: BMI 31.6
--- NOTE | 2023-12-13 | PATH_ITS ---
[facility] Accession Number: [id number] No. of containers..01 Tissue . 01 Material submitted: . colon - DESCENDING POLYP . 01 Diagnosis: DESCENDING COLON, POLYP: Hyperplastic polyp. MRV 12/17/2023 1525 Local . 01 Electronically signed: . Kya Guzmán MD, Pathologist NPI- [id number] . 01 Gross description: . DESCENDING POLYP: Received in formalin is 1 fragment(s) of dempsey, soft tissue measuring 0.6 x 0.6 x 0.2 cm submitted entirely in 1 cassette(s) /FRACISCO 12/15/2023 1901 Local . 01 Pathologist provided ICD-10: K63.5 . 01 CPT . 754534 Specimen Comment: A courtesy copy of this report has been sent to [phone] Performed at: 01 [facility] [address] [place] [address], [place], [place] [id number] MD Jeffy Noyola MD Phone: [phone]
--- NOTE | 2023-12-13 10:36 | PM.PREOP ---
Pre-operative Note COVID-19 COVID-19 status: Not tested Interval Note History & Physical reviewed/Exam performed by Physician: Yes Changes to H&P: No ASA Class (for procedural sedation): III
[2023-12-13 10:48] VITALS: BP 152/96; PULSE 102; RESP 16; TEMP 36.2; O2SAT 97
[2023-12-13] MEDS: LACTATED RINGERS 1,000 ML 42 ML IV (10:53)
--- NOTE | 2023-12-13 11:30 | PM.OP.COLON ---
Operative Date/Time/Diagnoses Date of procedure: 12/13/23 Time of procedure: 11:30 Pre-op diagnosis: GERD and history of sessile serrated adenoma Post-op diagnosis: same Procedure & Clinicians Study performed: EGD and colonoscopy Same procedure as scheduled: Yes Surgeon: Doug Haywood Procedure Notes Procedure in detail: Surgeon: Doug Haywood MD Anesthesia: Rosa Irwin BROADCAST MAINTENANCE ENGINEER Procedure in detail: A timeout was performed. A bite blocked was placed and monitors were attached to the patient. The patient was positioned in the left lateral decubitus position. Sedation was administered. Once the patient was sedated the endoscope was inserted through the bite block and passed through the esophagus and stomach and into the duodenum. No abnormalities were found. We then withdrew the scope into the stomach. No abnormalities were seen. The endoscope was retroflexed and no hiatal hernia was seen. The endoscope was straightned and withdrawn into the esophagus. No further abnormalities were noted. EGD findings: Normal exam Next we repositioned the patient for a colonoscopy. A digital rectal exam was performed and was normal. The colonoscope was inserted and advanced to the cecum. The appendiceal orifice was identified and photographed. The scope was slowly withdrawn over greater than 6 minutes. A 5 mm polyp was found in the descending colon and removed with a cold snare. The scope was retroflexed in the rectum and no other abnormalities were found. Colonoscopy findings: 5 mm descending colon polyp Total procedural EBL: 5 mL Scope withdrawal time: 8 minutes Sedation minutes: 19 minutes Post-procedure Disposition: PACU
[2023-12-13 11:31] VITALS: BP 118/80; PULSE 86; RESP 12; TEMP 36.8; O2SAT 95
[2023-12-13 11:36] VITALS: BP 136/89; PULSE 92; RESP 21; O2SAT 95
[2023-12-13 11:41] VITALS: BP 119/82; PULSE 85; RESP 15; O2SAT 94
[2023-12-13 11:46] VITALS: BP 122/85; PULSE 86; RESP 10; O2SAT 95
[2023-12-13 11:52] VITALS: BP 132/82; PULSE 77; RESP 13; TEMP 36.8; O2SAT 97
== END 2023-12-13 12:20 | disposition home or self-care (01) ==
PROVIDERS: PCP Family Medicine; Referring Provider Surgery; Visit Provider Surgery
PROC: 0DJ08ZZ Inspection of Upper Intestinal Tract, Via Natural or Artificial Opening Endoscopic (ICD-10-PCS; CPT 43235; principal; 2023-12-13 11:15)
PROC: 0DJD8ZZ Inspection of Lower Intestinal Tract, Via Natural or Artificial Opening Endoscopic (ICD-10-PCS; CPT 45378; 2023-12-13 11:15)
DX: Z12.11 Encounter for screening for malignant neoplasm of colon (principal); Z86.010 Personal history of colon polyps; K21.9 Gastro-esophageal reflux disease without esophagitis; K63.5 Polyp of colon
CPT/HCPCS: 45385; 43235; J2405; J2704

== ENCOUNTER 2024-03-31 18:55 | Emergency (ER) | payer BC, SELFPAY ==
[2023-09-27 11:37] VITALS: BMI 31.6
[2024-03-31 19:08] VITALS: BP 168/92; PULSE 83; RESP 14; TEMP 36.7; O2SAT 98; BMI 35.2
--- NOTE | 2024-03-31 19:30 | ED_ITS ---
HPI - Extremity Injury (Upper) General Chief Complaint: Extremity Injury, Upper Stated Complaint: broken finger, severe pain Time Seen by Provider: 03/31/24 19:15 Source: patient Mode of arrival: Ambulatory History of Present Illness HPI narrative: 53-year-old female presents for left pinky finger pain. Diagnosed with phalangeal fracture earlier in the week at a [place] emergency department when she was on vacation. Patient placed in ulnar gutter splint. She states that she was not given any pain medications. She has been taking naproxen and ibuprofen and she was not able to sleep due to the pain. She has an appointment with a hand doctor next week Related Data Home Medications Medication Instructions Recorded Confirmed Vitamin D3 Complete 800 unit PO DAILY ##0 04/01/17 12/20/23 omeprazole 40 mg capsule,delayed 40 mg PO DAILY 07/30/20 12/20/23 release acetaminophen 500 mg tablet 1,000 mg PO Q6H PRN Pain (Scale 09/29/20 12/20/23 Score 1-3) ibuprofen 200 mg tablet (Advil) 600 mg PO Q6H PRN Pain (Scale 09/29/20 12/20/23 Score 1-3) multivitamin 1 tab PO QAM 09/29/20 12/20/23 oxybutynin chloride 10 mg 10 mg PO DAILY 09/29/20 12/20/23 tablet,extended release 24 hr Previous Rx's Medication Instructions Recorded scopolamine base 1 mg over 3 days 1 patch topical Q72H #4 ea 04/14/13 transdermal patch (Transderm-Scop) cyclobenzaprine 10 mg tablet 10 mg PO Q8HR PRN Spasms #20 tabs 09/30/20 acyclovir 400 mg tablet 400 mg PO TID PRN Cold Sores #30 10/20/22 tabs metformin 500 mg tablet See Rx Instructions PO DAILY #90 10/02/23 tabs sodium,potassium,mag sulfates 17.5 See Rx Instructions PO .COMPLEX 12/01/23 gram-3.13 gram-1.6 gram oral soln #354 mL (Suprep Bowel Prep Kit) tramadol 50 mg tablet 50 mg PO Q8H PRN pain #10 tabs 03/31/24 Allergies Allergy/AdvReac Type Severity Reaction Status Date / Time oxycodone Allergy Severe itching, Verified 03/31/24 19:18 vomiting venom-honey bee Allergy Severe Anaphylaxis Verified 03/31/24 19:18 [BEE VENOM (HONEY BEE)] morphine [MORPHINE] Allergy Intermediate SWELLING, Verified 03/31/24 19:18 ITCHING, HIVES, Trouble breathing hydrocodone [HYDROCODONE] Allergy Mild ITCH Verified 03/31/24 19:18 codeine [CODEINE] AdvReac Mild NAUSEA Verified 03/31/24 19:18 Patient History Medical History History of colon polyps Uterine fibroid Hx of migraines Hyperglycemia Gestational diabetes Dysmenorrhea Menorrhagia Neck pain (~2012) Surgical History History of bladder suspension procedure History of cholecystectomy History of hysterectomy Status post endometrial ablation (12/23/18) History of Family History Sister Diabetes mellitus Brother Diabetes mellitus Father Diabetes mellitus Diabetic neuropathy Sister Thyroid disease Social History household members: spouse Smoking Status: Never smoker alcohol intake: current Smoking Status: Never smoker alcohol intake frequency: a few times a month Substance Use Type: does not use Exam Initial Vital Signs Initial Vital Signs: Vital Signs Temperature 98.1 F 03/31/24 19:08 Pulse Rate 83 03/31/24 19:08 Respiratory Rate 14 03/31/24 19:08 Blood Pressure 168/92 H 03/31/24 19:08 Pulse Oximetry 98 03/31/24 19:08 Oxygen Delivery Method Room Air 03/31/24 19:08 Const: Awake, alert, no acute distress, nontoxic appearing MSK: Capillary refill less than 2 seconds, no obvious deformity Skin: Warm, Dry, brusing along volar and dorsal surface of L hand Neuro: AO x3, CN II-XII grossly intact, moves all extremities Course Orders Ordered: Discontinued Medications Tramadol HCl (Tramadol 50 Mg Prepack) 1 bottle MISC DIRECTED ONE Stop: 03/31/24 19:31 Last Admin: 03/31/24 19:36 Dose: 1 bottle Documented By: ZAYDA Vital Signs Vital signs: Vital Signs - 8 hr 03/31/24 19:08 Temperature 98.1 F Pulse Rate 83 Respiratory Rate 14 Blood Pressure 168/92 H Pulse Oximetry 98 Oxygen Delivery Method Room Air MDM - Extremity Injury (Upper) MDM Narrative Medical decision making narrative: Patient with known finger fracture here for pain control. Ulnar gutter splint unwrapped, compartments soft. Splint reapplied. Pain meds sent to [facility] Discharge Plan Departure Patient Disposition: Home Clinical Impression: Finger fracture, left Qualifiers: Encounter type: initial encounter Finger: little finger Fracture type: closed Instructions: Finger Fracture Activity Restrictions/Additional Instructions: Continue to take naproxen and Tylenol for pain. Apply ice to swelling, elevate your extremity above heart level to help reduce pain. Keep your orthopedic follow up appointment as scheduled. Prescriptions: New tramadol 50 mg tablet 50 mg PO Q8H PRN (Reason: pain) Qty: 10 0RF No Action omeprazole 40 mg capsule,delayed release(DR/EC) 40 mg PO DAILY metformin 500 mg tablet See Rx Instructions PO DAILY Qty: 90 6RF Patient Comments: denies taking this medication Rx Instructions: Wk 1: 1/2 tab pm Wk 2: 1 tab pm Wk 3: 1/2 tab am, 1 tab pm Wk 4: 1 tab am & pm Wk 5: 1 tab am, 1 1/2 tabs pm Wk 6: 2 tab am & pm Vitamin D3 Complete tablet 800 unit PO DAILY Qty: 0 acyclovir 400 mg tablet 400 mg PO TID PRN (Reason: Cold Sores) Qty: 30 0RF Rx Instructions: please notify patient this is the last feel till she is seen in office scopolamine base [Transderm-Scop] 1 mg over 3 days patch 3 day 1 patch Topical Q72H Qty: 4 0RF sodium,potassium,mag sulfates [Suprep Bowel Prep Kit] 17.5-3.13-1.6 gram recon soln See Rx Instructions PO .COMPLEX Qty: 354 0RF Rx Instructions: take as directed by Physician oxybutynin chloride 10 mg tablet extended release 24hr 10 mg PO DAILY Patient Comments: take 1 tablet by mouth once daily. patient states hasn't started yet multivitamin Tablet 1 tab PO QAM acetaminophen 500 mg tablet 1,000 mg PO Q6H PRN (Reason: Pain (Scale Score 1-3)) ibuprofen [Advil] 200 mg Tablet 600 mg PO Q6H PRN (Reason: Pain (Scale Score 1-3)) cyclobenzaprine 10 mg Tablet 10 mg PO Q8HR PRN (Reason: Spasms) Qty: 20 0RF Referrals: Meera Amado MD [Primary Care Provider] - Stand Alone Forms: Patient Portal/API
[2024-03-31] MEDS: TRAMADOL 50 MG PREPACK 1 BOTTLE MISC (19:36)
== END 2024-03-31 19:53 | disposition home or self-care (01) ==
PROVIDERS: Emergency Provider Emergency Medicine; PCP Family Medicine
DX: S62.607G Fracture of unspecified phalanx of left little finger, subsequent encounter for fracture with delayed healing (principal)
CPT/HCPCS: 99281

== ENCOUNTER → 2024-04-03 10:41 | Outpatient (CLI) | payer BC, SELFPAY ==
[2023-09-27 11:37] VITALS: BMI 31.6
--- NOTE | 2024-04-03 10:42 | DI.RAD.S_ITS ---
PROCEDURE: XR HAND LT MIN 3V INDICATIONS: f/u TECHNIQUE: 3 views of the hand(s) acquired. COMPARISON: None. FINDINGS: Bones: Medial splint material is present. There is a nondisplaced, , questionably comminuted spiral fracture of the 5th proximal phalanx diaphysis. No visible extension to the articular surface, though fine detail is obscured. There is arthritic changes in the PIP joint in normal alignment of the MCP joint. No suspicious bone lesions. Soft tissues: No suspicious soft tissue calcifications. IMPRESSION: Nondisplaced, possibly comminuted 5th proximal phalanx base fractures. No significant malalignment. Dictated by: Molly Saldana M.D. on 04/03/2024 at 16:19 Approved by: Molly Saldana M.D. on 04/03/2024 at 16:22
--- NOTE | 2024-04-03 10:42 | DI.RAD.S_ITS ---
PROCEDURE: XR WRIST LT MIN 3V INDICATIONS: f/u TECHNIQUE: Three views of the wrist were acquired. COMPARISON: None. FINDINGS: Bones: No definite wrist fractures. There is medial splint material partially obscuring visualization of the ulna. There are mild subcortical cystic changes scattered in the carpal bones. Mild osteoarthritic change at the 1st carpometacarpal joint. Bone alignment remains normal. Soft tissues: No suspicious soft tissue calcifications. IMPRESSION: No visible wrist fractures. Please correlate with history as there is partial obscuration of the ulna due to splint material. Dictated by: Molly Saldana M.D. on 04/03/2024 at 16:23 Approved by: Molly Saldana M.D. on 04/03/2024 at 16:24
== END ==
PROVIDERS: PCP Family Medicine; Referring Provider Family Medicine; Visit Provider Family Medicine
DX: S62.647D Nondisplaced fracture of proximal phalanx of left little finger, subsequent encounter for fracture with routine healing (principal)
CPT/HCPCS: 73110; 73130

== ENCOUNTER → 2024-10-18 10:42 | Outpatient (CLI) | payer BC, SELFPAY ==
[2023-09-27 11:37] VITALS: BMI 31.6
[2024-10-18 12:03] LABS: Creatinine Urine Random 59.79 mg/dL
[2024-10-18 12:09] LABS: Microalbumin Urine Random < 0.6 mg/dL (0-1.6)
[2024-10-18 13:12] LABS: Add Manual Diff / Slide Review NO; Basophils Absolute Auto 100 /uL (0-100); Basophils Percent Auto 1.3 % (0-2); Eosinophils Absolute Auto 300 /uL (0-450); Eosinophils Percent Auto 5.1 % (2-4); Hematocrit 39.5 % (36-46); Hemoglobin 14.1 g/dL (12.0-16.0); Lymphocytes Absolute Auto 1700 /uL (1100-4500); Lymphocytes Percent Auto 26.1 % (25-40); Mean Corpuscular HGB Conc 35.7 % (30-36); Mean Corpuscular Volume 89.7 fL (80-100); Monocytes Absolute Auto 400 /uL (0-900); Monocytes Percent Auto 6.6 % (3-14); Neutrophils Absolute Auto 4100 /uL (1500-7000); Neutrophils Percent Auto 60.9 % (50-75); Platelet Count 248 X10^3/uL (150-400); Red Cell Distribution Width 13.1 % (11.6-14.8); White Blood Cell Count 6.7 X10^3/uL (4.5-11.0)
[2024-10-18 13:18] LABS: Hemoglobin A1C% w Est Avg Glu 6.6 % (4.0-6.0)
[2024-10-18 13:48] LABS: Alanine Aminotransferase 623 IU/L (<35); Albumin 4.5 g/dL (3.5-5.0); Albumin Globulin Ratio 1.5 (1.0-2.8); Alkaline Phosphatase 62 U/L (38-126); Aspartate Aminotransferase 293 IU/L (14-36); BUN Creatinine Ratio 21.2 (6-22); Bilirubin Total 1.1 mg/dL (0.2-1.3); Blood Urea Nitrogen 14 mg/dL (7-17); Calcium 9.3 mg/dL (8.4-10.2); Carbon Dioxide 28 mmol/L (22-32); Chloride 101 mmol/L (98-107); Estimated Glomerular Filt Rate > 60 mL/min (>60); Globulin 3.1 g/dL (1.7-4.1); Glucose 137 mg/dL (70-100); HEMOLYSIS < 15 (0-50); Lipase 167 U/L (23-300); Potassium 4.7 mmol/L (3.4-5.1); Sodium 137 mmol/L (137-145); Total Protein 7.6 g/dL (6.3-8.2)
== END ==
PROVIDERS: PCP Family Medicine; Referring Provider Family Medicine; Visit Provider Family Medicine
DX: E11.9 Type 2 diabetes mellitus without complications (principal); R10.11 Right upper quadrant pain
CPT/HCPCS: 36415; 80053; 82043; 82570; 83036; 83690; 85025

== ENCOUNTER → 2024-10-31 09:11 | Outpatient (CLI) | payer BC, SELFPAY ==
[2023-09-27 11:37] VITALS: BMI 31.6
[2024-10-31 10:54] LABS: Alanine Aminotransferase 121 IU/L (<35); Albumin 4.6 g/dL (3.5-5.0); Albumin Globulin Ratio 1.5 (1.0-2.8); Alkaline Phosphatase 63 U/L (38-126); Aspartate Aminotransferase 49 IU/L (14-36); BUN Creatinine Ratio 18.3 (6-22); Bilirubin Total 1.2 mg/dL (0.2-1.3); Blood Urea Nitrogen 13 mg/dL (7-17); Calcium 9.3 mg/dL (8.4-10.2); Carbon Dioxide 28 mmol/L (22-32); Chloride 101 mmol/L (98-107); Cholesterol 199 mg/dL (140-199); Estimated Glomerular Filt Rate > 60 mL/min (>60); Glucose 163 mg/dL (70-100); HDL Cholesterol 57 mg/dL (40-60); HEMOLYSIS < 15 (0-50); LDL Cholesterol Calculated 121 mg/dL (<100); Potassium 4.7 mmol/L (3.4-5.1); Sodium 138 mmol/L (137-145); Total Protein 7.6 g/dL (6.3-8.2); Triglycerides 104 mg/dL (35-150)
[2024-11-01 04:26] LABS: HBsAg Screen Negative (Negative); Hepatitis A Antibody IgM Negative (Negative); Hepatitis B Core Antibody IgM Negative (Negative); Hepatitis C Antibody Non Reactive (Non Reactive)
== END ==
PROVIDERS: PCP Family Medicine; Referring Provider Family Medicine; Visit Provider Family Medicine
DX: R74.8 Abnormal levels of other serum enzymes (principal)
CPT/HCPCS: 36415; 80053; 80061; 80074

== ENCOUNTER → 2024-11-08 08:25 | Outpatient (CLI) | payer BC, SELFPAY ==
[2023-09-27 11:37] VITALS: BMI 31.6
--- NOTE | 2024-11-08 08:26 | DI.MG.S_ITS ---
MM screening mammo BI: 11/08/2024. BI-RADS: 2 CLINICAL: 53-year old female for bilateral screening mammogram. Tyrer-Cuzick lifetime risk of 4.5%. No personal or first-degree family history of breast cancer. PRIOR EXAMS 09/23/2020, 10/12/2017. MAMMOGRAPHY TECHNIQUE: 2D and 3D (tomosynthesis) digital mammographic views obtained, with additional images as needed for full coverage. Current study was also evaluated with a Computer Aided Detection (CAD) system. DENSITY B. There are scattered areas of fibroglandular density. MAMMOGRAPHY FINDINGS Bilateral: Benign-appearing calcifications noted. There are no suspicious masses, calcifications, or other findings in the breast. IMPRESSION: * No evidence of malignancy with benign findings. RECOMMENDATIONS Bilateral * Annual screening mammography. OVERALL ASSESSMENT CATEGORY BI-RADS-2: Benign. The [employer] recommends annual screening mammography beginning at age 40 for women with average risk of breast cancer. ELECTRONICALLY SIGNED: May Hardy M.D. on 11/08/2024 at 02:06:42 PM PT Interpreting Station ID: [id number]
--- NOTE | 2024-11-08 08:26 | DI.US.S_ITS ---
PROCEDURE: US ABDOMEN LIMITED INDICATIONS: RIGHT UPPER QUADRANT PAIN TECHNIQUE: Real-time scanning was performed of the abdominal and retroperitoneal organs, with image documentation. COMPARISON: [facility], , US ABDOMEN LIMITED, 07/06/2020, 23:39. FINDINGS: Liver: Liver is normal in size. Increased liver parenchymal echotexture is seen. No solid appearing hepatic lesion. Gallbladder: Gallbladder is surgically absent. No abnormality is seen within gallbladder fossa. Biliary ducts: Intrahepatic bile ducts are non-dilated. Extrahepatic bile duct caliber measures 7.8 mm. Normal is 6-7 mm or less in diameter, or 10 mm or less post-cholecystectomy. Pancreas: Visualized portions of the pancreas are sonographically normal. Miscellaneous: No free abdominal fluid. IMPRESSION: Hepatic steatosis, no solid very Paddock lesion. Prior cholecystectomy. No biliary ductal dilatation. Dictated by: Felipe Gardner M.D. on 11/08/2024 at 10:41 Approved by: Felipe Gardner M.D. on 11/08/2024 at 10:42
== END ==
PROVIDERS: PCP Family Medicine; Referring Provider Family Medicine; Visit Provider Family Medicine
DX: Z12.31 Encounter for screening mammogram for malignant neoplasm of breast (principal); R10.11 Right upper quadrant pain
CPT/HCPCS: 76705; 77063; 77067

== ENCOUNTER → 2024-11-09 16:04 | Outpatient (CLI) | payer BC, SELFPAY ==
[2023-09-27 11:37] VITALS: BMI 31.6
--- NOTE | 2024-11-09 16:05 | DI.MRI.S_ITS ---
PROCEDURE: MR AB PANCREATIC/MRCP PROTOCOL INDICATIONS: RUQ pain TECHNIQUE: Coronal HASTE through the abdomen, axial 2-D FLASH in- and [id number], and breath-hold T2 FSE with fat saturation through the biliary system and pancreas. Oblique coronal and axial thin-slice HASTE, radial thick-slab HASTE centered on the extrahepatic bile ducts. T1 vibe pre and postcontrast in the axial plane. Postcontrast T1 vibe. 20 cc ProHance IV contrast. COMPARISON: [facility], CT, CT ABDOMEN PELVIS W CON, 11/30/2023, 9:40. [facility], US, US ABDOMEN LIMITED, 11/08/2024, 9:30. FINDINGS: Image quality: Diagnostic. Gallbladder: Absent. Biliary ducts: No significant biliary dilation. CBD measures 0.8 cm. No choledocholithiasis. Pancreas: No ductal dilation. OTHER: Lung bases: Unremarkable. Liver: No solid mass demonstrated. Geographic hepatic steatosis. Spleen: Size is within normal limits. Adrenal Glands: No adrenal nodules. Kidneys and Ureters: No hydronephrosis. No solid mass. No complex renal cystic lesion which requires follow up. Stomach and Bowel: Normal colonic caliber, without significant wall thickening. Normal appendix. Peritoneum: No abnormal intraperitoneal fluid. No free air. Ventral Wall: No hernia. Abdominal Nodes: No retroperitoneal or mesenteric adenopathy by size criteria. Vessels: Aorta and inferior vena cava are normal in size. Bones: No aggressive osseous abnormality. IMPRESSION: 1. No significant biliary or pancreatic ductal dilatation. No choledocholithiasis. Post cholecystectomy. 2. Geographic hepatic steatosis. Dictated by: Atif Wong M.D. on 11/09/2024 at 20:15 Approved by: Atif Wong M.D. on 11/09/2024 at 20:23
== END ==
LOC: MRI 16:05
PROVIDERS: PCP Family Medicine; Referring Provider Family Medicine; Visit Provider Family Medicine
DX: R10.11 Right upper quadrant pain (principal); Z90.49 Acquired absence of other specified parts of digestive tract; R74.8 Abnormal levels of other serum enzymes; K76.0 Fatty (change of) liver, not elsewhere classified
CPT/HCPCS: 74183; A9579

== ENCOUNTER → 2024-11-20 09:16 | Outpatient (CLI) | payer BC, SELFPAY ==
[2023-09-27 11:37] VITALS: BMI 31.6
[2024-11-20 09:56] LABS: Alanine Aminotransferase 37 IU/L (<35); Albumin 4.4 g/dL (3.5-5.0); Albumin Globulin Ratio 1.5 (1.0-2.8); Alkaline Phosphatase 56 U/L (38-126); Aspartate Aminotransferase 32 IU/L (14-36); BUN Creatinine Ratio 18.7 (6-22); Bilirubin Total 1.3 mg/dL (0.2-1.3); Blood Urea Nitrogen 17 mg/dL (7-17); Calcium 9.2 mg/dL (8.4-10.2); Carbon Dioxide 27 mmol/L (22-32); Chloride 102 mmol/L (98-107); Estimated Glomerular Filt Rate > 60 mL/min (>60); Glucose 148 mg/dL (70-100); HEMOLYSIS < 15 (0-50); Potassium 3.9 mmol/L (3.4-5.1); Sodium 138 mmol/L (137-145); Total Protein 7.4 g/dL (6.3-8.2)
== END ==
PROVIDERS: PCP Family Medicine; Referring Provider Family Medicine; Visit Provider Family Medicine
DX: R74.8 Abnormal levels of other serum enzymes (principal)
CPT/HCPCS: 36415; 80053

== ENCOUNTER 2025-02-06 23:49 | Emergency (ER) | payer BC, SELFPAY ==
[2023-09-27 11:37] VITALS: BMI 31.6
--- NOTE | 2025-02-06 23:53 | DI.RAD.S_ITS ---
PROCEDURE: XR CHEST 1V INDICATIONS: Chest Pain TECHNIQUE: One view of the chest was acquired. COMPARISON: [facility], CR, XR CHEST 1V, 09/05/2023, 23:58. FINDINGS: Surgical changes and devices: None. Lungs and pleura: Lungs are clear. No pleural effusions or pneumothorax. Mediastinum: Mediastinal contours appear normal. Heart size is normal. Bones and chest wall: No suspicious bony lesions. Overlying soft tissues appear unremarkable. IMPRESSION: No acute cardiopulmonary abnormality is seen. Dictated by: Molly Saldana M.D. on 02/07/2025 at 1:29 Approved by: Molly Saldana M.D. on 02/07/2025 at 1:30
--- NOTE | 2025-02-06 23:53 | EKG_ITS ---
[address] [address] Test Date: 2025-02-07 Pat Name: Collette Gutierres Department: [facility] Room: Gender: Female Trommel Tender: CHASIDY MAJANO : 1970 Requested By: Order Number: [id number] Reading MD: Bear Doyle Measurements Intervals Dulce Rate: 92 P: 34 WA: 152 QRS: -5 QRSD: 84 T: 17 QT: 374 QTc: 462 Interpretive Statements Normal sinus rhythm Cannot rule out Anterior infarct , age undetermined Electronically Signed On 02-09-2025 0:11:21 PDT by Bear Doyle
[2025-02-06 23:56] VITALS: BP 186/102; PULSE 88; RESP 16; TEMP 36.6; O2SAT 98; BMI 35.4
[2025-02-07 00:24] LABS: Basophils Absolute Auto 100 /uL (0-100); Hemoglobin 14.1 g/dL (12.0-16.0)
[2025-02-07 00:25] LABS: INR 0.9 (0.9-1.3); Prothrombin Time 10.2 SECONDS (9.4-12.5)
[2025-02-07 00:28] LABS: PTT Partial Thromboplastin Tim 39 SECONDS (25.1-36.5)
[2025-02-07 00:35] LABS: Alanine Aminotransferase 39 IU/L (<35); Albumin 4.4 g/dL (3.5-5.0); Albumin Globulin Ratio 1.5 (1.0-2.8); Alkaline Phosphatase 50 U/L (38-126); Aspartate Aminotransferase 33 IU/L (14-36); BUN Creatinine Ratio 17.3 (6-22); Bilirubin Total 0.7 mg/dL (0.2-1.3); Blood Urea Nitrogen 13 mg/dL (7-17); Calcium 8.9 mg/dL (8.4-10.2); Carbon Dioxide 26 mmol/L (22-32); Chloride 103 mmol/L (98-107); Creatine Kinase 82 U/L (30-135); Estimated Glomerular Filt Rate > 60 mL/min (>60); Glucose 190 mg/dL (70-99); HEMOLYSIS 17 (0-50); Lipase 181 U/L (23-300); Magnesium 1.7 mg/dL (1.6-2.3); Potassium 3.5 mmol/L (3.4-5.1); Sodium 136 mmol/L (137-145); Total Protein 7.4 g/dL (6.3-8.2)
[2025-02-07 00:36] LABS: Add Manual Diff / Slide Review NO; Basophils Percent Auto 0.7 % (0-2); Eosinophils Absolute Auto 100 /uL (0-450); Eosinophils Percent Auto 1.2 % (2-4); Hematocrit 39.2 % (36-46); Lymphocytes Absolute Auto 3300 /uL (1100-4500); Lymphocytes Percent Auto 40.3 % (25-40); Mean Corpuscular HGB Conc 35.9 % (30-36); Mean Corpuscular Volume 89.2 fL (80-100); Monocytes Absolute Auto 500 /uL (0-900); Monocytes Percent Auto 5.9 % (3-14); Neutrophils Absolute Auto 4300 /uL (1500-7000); Neutrophils Percent Auto 51.9 % (50-75); Platelet Count 236 X10^3/uL (150-400); Red Cell Distribution Width 12.7 % (11.6-14.8); White Blood Cell Count 8.3 X10^3/uL (4.5-11.0)
[2025-02-07 00:46] LABS: NT-proBNP (BNP-Adult 18+) < 20 pg/mL (<125); Troponin I < 0.012 ng/mL (0.01-0.034)
[2025-02-07 02:02] VITALS: PULSE 87; O2SAT 91
[2025-02-07 02:04] VITALS: BP 157/85; PULSE 83; RESP 24; O2SAT 97
[2025-02-07] MEDS: ASPIRIN 81 MG CHEW TAB 324 MG PO (02:20)
[2025-02-07 02:30] VITALS: BP 129/85; PULSE 74; RESP 21; O2SAT 96
[2025-02-07 02:53] LABS: Troponin I < 0.012 ng/mL (0.01-0.034)
[2025-02-07 03:00] VITALS: BP 139/84; PULSE 69; RESP 21; O2SAT 94
--- NOTE | 2025-02-07 03:09 | ED.CHESTPAIN ---
HPI - Chest Pain General Chief Complaint: Chest Pain Stated Complaint: ChestPain, Neck Pain, SOB Time Seen by Provider: 02/07/25 02:12 Source: patient Mode of arrival: Ambulatory Limitations: no limitations History of Present Illness HPI narrative: 54-year-old female with no known history of coronary artery disease, history of gastroesophageal reflux diagnosed through otolaryngology direct visualization of cords, had been on PPI in the past which she discontinued because of concerns about long-term health effects of proton pump inhibitor medications class, not taking any other antacid systemic, complains of intermittent left anterior chest discomfort, intermittent shortness of breath. No fevers or chills. Denies recent cough. Denies history of blood clots to legs or lungs. Denies leg pain or swelling symptoms. Related Data Home Medications ?Medication ?Instructions ?Recorded ?Confirmed Vitamin D3 Complete 800 unit PO DAILY ##0 04/01/17 02/07/25 multivitamin 1 tab PO QAM 09/29/20 02/07/25 berberine chloride 500 mg capsule 600 mg PO TID 02/07/25 02/07/25 Allergies Allergy/AdvReac Type Severity Reaction Status Date / Time oxycodone Allergy Severe itching, Verified 02/06/25 23:56 vomiting venom-honey bee (BEE VENOM Allergy Severe Anaphylaxis Verified 02/06/25 23:56 (HONEY BEE)) morphine (MORPHINE) Allergy Intermediate SWELLING, Verified 02/06/25 23:56 ITCHING, HIVES, Trouble breathing hydrocodone (HYDROCODONE) Allergy Mild ITCH Verified 02/06/25 23:56 codeine (CODEINE) AdvReac Mild NAUSEA Verified 02/06/25 23:56 Patient History Medical History History of colon polyps Uterine fibroid Hx of migraines Hyperglycemia Gestational diabetes Dysmenorrhea Menorrhagia Neck pain (~2012) Surgical History History of bladder suspension procedure History of cholecystectomy History of hysterectomy Status post endometrial ablation (12/23/18) History of Family History Sister Diabetes mellitus Brother Diabetes mellitus Father Diabetes mellitus Diabetic neuropathy Sister Thyroid disease Social History household members: spouse Smoking Status: Never smoker alcohol intake: current Smoking Status: Never smoker alcohol intake frequency: a few times a month Exam Narrative Exam Narrative: GENERAL: Well-developed patient, in mild distress. HEAD: Atraumatic. Normocephalic. EYES: Pupils equal round and reactive. Extraocular motions intact. No scleral icterus. No injection or drainage. ENT: Nose without bleeding, purulent drainage. Throat without erythema, tonsillar hypertrophy or exudate. Airway patent. NECK: Trachea midline. Non tender CARDIOVASCULAR: Regular rate and rhythm without murmurs, gallops, or rubs. RESPIRATORY: Clear to auscultation. Breath sounds equal bilaterally. No wheezes, rales, or rhonchi. GASTROINTESTINAL: Abdomen soft, non-tender, nondistended. EXTREMITIES: No edema or joint tenderness. BACK: Nontender without deformity or crepitance. No flank tenderness. NEURO: AOx3. Motor functions grossly nonfocal SKIN: No rash or erythema of visible areas Initial Vital Signs Initial Vital Signs: Vital Signs Temperature 98 F 02/06/25 23:56 Pulse Rate 88 02/06/25 23:56 Respiratory Rate 16 02/06/25 23:56 Blood Pressure 186/102 H 02/06/25 23:56 Pulse Oximetry 98 02/06/25 23:56 Oxygen Delivery Method Room Air 02/06/25 23:56 Course Orders Ordered: ED Orders 02/06/25 23:53 XR chest 1V Stat EKG-12 Lead Stat 02/07/25 02:25 Troponin I Stat Discontinued Medications Aspirin (Aspirin 81 Mg Chew Tab) 324 mg PO NOW ONE Stop: 02/06/25 23:54 Last Admin: 02/07/25 02:20 Dose: 324 mg Documented By: [facility] Pantoprazole Sodium (Pantoprazole 40 Mg Vial) 40 mg IV NOW ONE Stop: 02/07/25 03:25 Vital Signs Vital signs: Vital Signs - 8 hr 02/06/25 23:56 02/07/25 02:02 02/07/25 02:04 Temperature 98 F Pulse Rate 88 87 83 Respiratory Rate 16 24 Blood Pressure 186/102 H Pulse Oximetry 98 91 97 Oxygen Delivery Method Room Air 02/07/25 02:04 02/07/25 02:30 02/07/25 02:30 Temperature Pulse Rate 74 Respiratory Rate 21 Blood Pressure 157/85 H 129/85 Pulse Oximetry 96 Oxygen Delivery Method 02/07/25 03:00 02/07/25 03:00 02/07/25 03:30 Temperature Pulse Rate 69 67 Respiratory Rate 21 14 Blood Pressure 139/84 Pulse Oximetry 94 96 Oxygen Delivery Method Room Air 02/07/25 03:30 Temperature Pulse Rate Respiratory Rate Blood Pressure 131/79 Pulse Oximetry Oxygen Delivery Method MDM - Chest Pain Lab Data Attestation: I reviewed the patient's lab results. Lab results narrative: White blood cell count 8300, hemoglobin 14.1, platelets adequate. Glucose 190. Renal function normal. Slight decreased sodium 136, potassium 3.5 normal. Serum CO2 26 normal. Slight ALT elevation, other liver functions normal. Lipase normal. BNP normal. Troponins negative/unmeasurable x2 sets. 02/06/25 00:05 02/06/25 00:05 Labs: Lab Results 02/06/25 02/07/25 Range/Units 00:05 02:25 WBC 8.3 (4.5-11.0) X10^3/uL RBC 4.40 (4.0-5.2) X10^6/uL Hgb 14.1 (12.0-16.0) g/dL Hct 39.2 (36-46) % MCV 89.2 (80-100) fL MCH 32.0 (26-34) PG MCHC 35.9 (30-36) % RDW 12.7 (11.6-14.8) % Plt Count 236 (150-400) X10^3/uL Neut % (Auto) 51.9 (50-75) % Lymph % (Auto) 40.3 H (25-40) % Perry % (Auto) 5.9 (3-14) % Eos % (Auto) 1.2 L (2-4) % Baso % (Auto) 0.7 (0-2) % Neut # (Auto) 4300 (3316-0207) /uL Lymph # (Auto) 3300 (7500-4040) /uL Perry # (Auto) 500 (0-900) /uL Eos # (Auto) 100 (0-450) /uL Baso # (Auto) 100 (0-100) /uL PT 10.2 (9.4-12.5) SECONDS INR 0.9 (0.9-1.3) APTT 39 H (25.1-36.5) SECONDS Sodium 136 L (137-145) mmol/L Potassium 3.5 (3.4-5.1) mmol/L Chloride 103 (98-107) mmol/L Carbon Dioxide 26 (22-32) mmol/L BUN 13 (7-17) mg/dL Creatinine 0.75 (0.52-1.04) mg/dL Estimated GFR > 60 (>60) mL/min BUN/Creatinine Ratio 17.3 (6-22) Glucose 190 H (70-99) mg/dL Calcium 8.9 (8.4-10.2) mg/dL Magnesium 1.7 (1.6-2.3) mg/dL Total Bilirubin 0.7 (0.2-1.3) mg/dL AST 33 (14-36) IU/L ALT 39 H (<35) IU/L Alkaline Phosphatase 50 (38-126) U/L Total Creatine Kinase 82 (30-135) U/L Troponin I < 0.012 < 0.012 (0.01-0.034) ng/mL NT-Pro-B Natriuret Pep < 20 (<125) pg/mL Total Protein 7.4 (6.3-8.2) g/dL Albumin 4.4 (3.5-5.0) g/dL Globulin 3.0 (1.7-4.1) g/dL Albumin/Globulin Ratio 1.5 (1.0-2.8) Lipase 181 (23-300) U/L Imaging Data Chest x-ray: Radiologist's Impression: [address] [address] XRay Report Signed Patient: Collette Gutierres MR#: [id number] : 1970 Acct:[id number] Age/Sex: 54 / F Date of Service: 02/06/25 Loc: ED Accession Number: [id number] Procedure: XR chest 1V Ordering Provider: Nolan Ruby MD PROCEDURE: XR CHEST 1V INDICATIONS: Chest Pain TECHNIQUE: One view of the chest was acquired. COMPARISON: [facility], , XR CHEST 1V, 09/05/2023, 23:58. FINDINGS: Surgical changes and devices: None. Lungs and pleura: Lungs are clear. No pleural effusions or pneumothorax. Mediastinum: Mediastinal contours appear normal. Heart size is normal. Bones and chest wall: No suspicious bony lesions. Overlying soft tissues appear unremarkable. IMPRESSION: No acute cardiopulmonary abnormality is seen. Dictated by: Molly Saldana M.D. on 02/07/2025 at 1:29 Approved by: Molly Saldana M.D. on 02/07/2025 at 1:30 ECG Data Interpretation: 0002, normal sinus rhythm with rate of 94, no obvious ST segment elevation or depression changes. NC 154, QRS 82, QTC 467. MDM Narrative Medical decision making narrative: 54-year-old female with history of EDWIN, no longer taking PPI medications, no known CAD, has had intermittent chest discomfort and intermittent shortness of breath, usually concomitant. Afebrile, sirs screen negative. No recent cough. EKG chest x-ray labs pending. Currently symptom free. EKG sinus rhythm without obvious ischemic changes. Chest x-ray no acute changes. See radiology report. Lab data: White blood cell count 8300, hemoglobin 14.1, platelets adequate. Glucose 190. Renal function normal. Slight decreased sodium 136, potassium 3.5 normal. Serum CO2 26 normal. Slight ALT elevation, other liver functions normal. Lipase normal. BNP normal. Troponins negative/unmeasurable x2 sets. Consider restart of PPI, advised to take omeprazole 20 mg daily for 1 month, then consider transition to famotidine/Pepcid antacid regimen if it is still working for her, to avoid long-term toxicities of PPI that seemed to be a cause of her concern. Recheck symptoms advised with your regular provider early this week. Further chest pain workup as an outpatient for now. Return precautions discussed. Home with family. Discharge Plan Departure Patient Disposition: Home Clinical Impression: Chest pain, Shortness of breath, History of gastroesophageal reflux (GERD) Activity Restrictions/Additional Instructions: History of gastroesophageal reflux, diagnosed in the past by otolaryngology with erosions noted in the vocal cords, previous experience with omeprazole antacid medications, which were discontinued because of concerns about long-term use health side effects. Currently not taking any antacid therapies. Intermittent chest discomfort with intermittent shortness of breath noted. EKG and chest x-ray unremarkable today, serial blood tests not suggestive of heart attack. Consider restart of antacid therapy, such as omeprazole daily for 1 month, and perhaps transitioning to famotidine, that hopefully could control reflux symptoms that might be related to your symptoms, but avoid long-term complication associated with omeprazole/PPI type antacids. You stated that you had omeprazole at home, consider 20 mg dose daily for 1 month, then consider use of [id number] famotidine antacid. Further cardiac workup as indicated as an outpatient for now, review symptoms back on your omeprazole this next week with your regular provider. Return earlier to this/nearest emergency department for any change worsening symptoms or any concerns prior. Prescriptions: No Action Vitamin D3 Complete tablet 800 unit PO DAILY Qty: 0 multivitamin Tablet 1 tab PO QAM berberine chloride 500 mg capsule 600 mg PO TID Referrals: Meera Amado MD [Primary Care Provider, Family Practice] Stand Alone Forms: Patient Portal/API
[2025-02-07 03:30] VITALS: BP 131/79; PULSE 67; RESP 14; O2SAT 96
== END 2025-02-07 03:52 | disposition home or self-care (01) ==
PROVIDERS: Emergency Provider Emergency Medicine; PCP Family Medicine
DX: R07.9 Chest pain, unspecified (principal); R06.02 Shortness of breath; Z87.19 Personal history of other diseases of the digestive system
CPT/HCPCS: 36415; 71045; 80053; 82550; 83690; 83735; 83880; 84484; 85025; 85610; 85730; 93005; 99284